=== PATIENT | male | born 1950 | race Caucasian/White ===

== ENCOUNTER 2016-04-07 09:45 | Inpatient (IN) | payer MEDICARE ==
[~2016-04-07] VITALS: Ht 172.7 cm; Wt 132.5 kg
[2016-04-07] VITALS (7 sets, daily range): BP systolic 135–158; BP diastolic 69–95; PULSE 90–109; RESP 16–22; TEMP 97.9–98.8; O2SAT 89–98
[~2016-04-07 09:45] MED LIST: AMLO5TAB96 PO; ASPI325T PO; FURO8SOL PO; GLUC1000 PO; LISI-357 PO; LYRI150C PO; SIMV20 PO
[2016-04-07] MEDS ORDERED: SODIUM CHLORIDE 0.9% FLUSH 5 ML FLUSH IVF PRN (10:00)
[2016-04-07 10:23] LABS: AUTOMATED NEUTROPHIL # 13.6 TH/MM3 (1.8-7.7); BASOPHIL # 0.1 TH/MM3 (0-0.2); BASOPHIL % 0.6 % (0.0-2.0); EOSINOPHIL % 0.2 % (0.0-4.0); HEMATOCRIT 48.8 % (39.0-51.0); HEMO FLAGS DIFF FINAL; LYMPH % 10.5 % (9.0-44.0); LYMPHOCYTE # 1.7 TH/MM3 (1.0-4.8); MEAN CELL VOLUME 85.5 FL (80.0-100.0); MEAN CORPUSCULAR HEMOGLOBIN 27.8 PG (27.0-34.0); MEAN CORPUSCULAR HGB CONC 32.5 % (32.0-36.0); MONO % 5.4 % (0.0-8.0); NEUT % 83.3 % (16.0-70.0); PLATELET COUNT 284 TH/MM3 (150-450); RED CELL DISTRIBUTION WIDTH 15.6 % (11.6-17.2); WHITE BLOOD COUNT 16.3 TH/MM3 (4.0-11.0)
[2016-04-07 10:29] LABS: APTT (PATIENT) 29.4 SEC (24.3-30.1); PROTHROMBIN TIME - PATIENT 11.4 SEC (9.8-11.6)
[2016-04-07 10:36] LABS: ALT (GPT) 27 U/L (12-78); ANION GAP 5 MEQ/L (5-15); AST (GOT) 16 U/L (15-37); BICARBONATE 30.1 MEQ/L (21.0-32.0); BLOOD UREA NITROGEN 13 MG/DL (7-18); CHLORIDE 101 MEQ/L (98-107); GLOMERULAR FILTRATION RATE 59 ML/MIN (>89); POTASSIUM 4.6 MEQ/L (3.5-5.1); SODIUM (NA) 136 MEQ/L (136-145)
--- NOTE | 2016-04-07 10:36 | RADRPT ---
EXAM DATE/TIME: 04/07/2016 10:23 There is marked central and cortical atrophy with dilatation of ventricular and sulcal spaces. Areas of low attenuation seen throughout the white matter. There is no parenchymal hemorrhage, acute infarc tion or mass lesion identified. There are no extra-axial fluid collections appreciated. The posteri or fossa is unremarkable with midline fourth ventricle. The portion of the orbits and paranasal sinu ses visualized are unremarkable. CONCLUSION: Cerebral atrophy and chronic ischemic small vessel vasculopathy. Opacification of the right maxillary sinus partially seen. Abran Ruth MD on April 07, 2016 at 10:33 Board Certified Radiologist. This report was verified electronically.
--- NOTE | 2016-04-07 10:36 | RADRPT ---
EXAM DATE/TIME: 04/07/2016 10:24 [facility] COMPARISON: No previous studies available for comparison. INDICATIONS : Left hip pain, fall. MEDICAL HISTORY : None. SURGICAL HISTORY : None. ENCOUNTER: Initial ACUITY: 1 day PAIN SCORE: 3/10 LOCATION: Bilateral hip FINDINGS: Examination of the left hip was performed with AP Pelvis. Fracture of the left femoral neck with slig ht superior migration of the distal shaft. Mild degenerative changes of both hips.. The acetabulum i s grossly intact. CONCLUSION: Mildly displaced left femoral neck fracture. Abran Ruth MD on April 07, 2016 at 10:34 Board Certified Radiologist. This report was verified electronically.
[2016-04-07] MEDS ORDERED: METF1000 PO (10:37)
[2016-04-07] MEDS ORDERED: htn med PO (10:37)
[2016-04-07] MEDS ORDERED: SIMV20TA PO (10:37)
[2016-04-07 10:38] LABS: ALKALINE PHOSPHATASE 71 U/L (45-117); TOTAL BILIRUBIN ADULT 0.7 MG/DL (0.2-1.0)
--- NOTE | 2016-04-07 10:40 | RADRPT ---
EXAM DATE/TIME: 04/07/2016 10:18 [facility] COMPARISON: No previous studies available for comparison. INDICATIONS : Chest pain. MEDICAL HISTORY : None. SURGICAL HISTORY : None. ENCOUNTER: Initial ACUITY: 1 day PAIN SCORE: 2/10 LOCATION: Bilateral chest FINDINGS: A single view of the chest demonstrates diminished lung volumes with bibasilar atelectasis. No eviden ce of mass, infiltrate or effusion. The cardiomediastinal contours are unremarkable. Osseous struct ures are intact. CONCLUSION: Diminished lung volumes with minimal bibasilar atelectasis. Abran Ruth MD on April 07, 2016 at 10:38 Board Certified Radiologist. This report was verified electronically.
--- NOTE | 2016-04-07 10:42 | PD ---
HPI Chief Complaint: Hip Injury Time Seen by Provider: 09:52 Travel History International Travel<30 days: No Contact w/Intl Traveler<30days: No Traveled to known affect area: No History of Present Illness HPI 66-year-old male who presents the emergency department having been brought in for left hip pain. Patient reportedly had a mechanical fall. His friends were with him at the time. He doesn't remember falling but he does know that he has hip pain. He evidently has a history of dementia. He lives with some friends and uses a walker and a wheelchair but recently they have been having more difficulty taking care of him. He provides very little history and is quite confused. PFSH Past Medical History Congestive Heart Failure: Yes Diabetes: Yes Hypertension: Yes Social History Alcohol Use: No Tobacco Use: No Allergies-Medications (Allergen,Severity, Reaction): Coded Allergies: No Known Allergies (Verified , 04/07/16) Reported Meds & Prescriptions Reported Meds & Active Scripts Active Reported [htn med] Unknown Dose PO DAILY Simvastatin 20 Mg Tab 20 Mg PO DAILY Metformin (Metformin HCl) 1,000 Mg Tab 1,000 Mg PO BIDPC With meals Review of Systems ROS Limitations: Poor Historian Physical Exam Narrative GENERAL:Well appearing, no acute distress SKIN: Warm and dry. HEAD: Atraumatic. Normocephalic. EYES: Pupils equal and round. No injection or drainage. ENT: Moist mucous membranes NECK: Trachea midline. CARDIOVASCULAR: Regular rate and rhythm. No murmur appreciated. 2+ DP pulses bilaterally. RESPIRATORY: Clear to auscultation. Breath sounds equal bilaterally. GASTROINTESTINAL: Abdomen soft, non-tender, nondistended. MUSCULOSKELETAL: Pain with flexion of the left hip. NEUROLOGICAL: Awake and alert. No obvious cranial nerve deficits. Moving all extremities. Sensation grossly intact in the left lower extremity. PSYCHIATRIC: Appropriate mood and affect; insight and judgment normal. Data Data Last Documented VS Vital Signs Date Time Temp Pulse Resp B/P Pulse Ox O2 Delivery O2 Flow Rate FiO2 04/07/16 11:53 100 22 155/90 98 Room Air 04/07/16 10:00 2 04/07/16 09:59 97.9 Orders Electrocardiogram (04/07/16 09:52) Complete Blood Count With Diff (04/07/16 09:52) Comprehensive Metabolic Panel (04/07/16 09:52) Prothrombin Time / Inr (Pt) (04/07/16 09:52) Act Partial Throm Time (Ptt) (04/07/16 09:52) Chest, Single Ap (04/07/16 09:52) Ecg Monitoring (04/07/16 09:52) Bilateral Bp Monitoring (04/07/16 09:52) Iv Access Insert/Monitor (04/07/16 09:52) Oximetry (04/07/16 09:52) Oxygen Administration (04/07/16 09:52) Sodium Chloride 0.9% Flush (Ns Flush) (04/07/16 10:00) Ct Brain W/O Iv Contrast(Rout) (04/07/16 ) Hip, Uni(Ap&Lat) W Ap Pelvis (04/07/16 ) Urinalysis - C+S If Indicated (04/07/16 10:36) Cath For Specimen (04/07/16 10:36) Creatine Kinase (Cpk) (04/07/16 11:05) Admit Order (Ed Use Only) (04/07/16 12:43) Consult Orthopedic (04/07/16 ) Labs Laboratory Tests Test 04/07/16 04/07/16 10:00 11:50 White Blood Count 16.3 TH/MM3 Red Blood Count 5.70 MIL/MM3 Hemoglobin 15.8 GM/DL Hematocrit 48.8 % Mean Corpuscular Volume 85.5 FL Mean Corpuscular Hemoglobin 27.8 PG Mean Corpuscular Hemoglobin 32.5 % Concent Red Cell Distribution Width 15.6 % Platelet Count 284 TH/MM3 Mean Platelet Volume 8.5 FL Neutrophils (%) (Auto) 83.3 % Lymphocytes (%) (Auto) 10.5 % Monocytes (%) (Auto) 5.4 % Eosinophils (%) (Auto) 0.2 % Basophils (%) (Auto) 0.6 % Neutrophils # (Auto) 13.6 TH/MM3 Lymphocytes # (Auto) 1.7 TH/MM3 Monocytes # (Auto) 0.9 TH/MM3 Eosinophils # (Auto) 0.0 TH/MM3 Basophils # (Auto) 0.1 TH/MM3 CBC Comment DIFF FINAL Differential Comment Prothrombin Time 11.4 SEC Prothromb Time International 1.0 RATIO Ratio Activated Partial 29.4 SEC Thromboplast Time Sodium Level 136 MEQ/L Potassium Level 4.6 MEQ/L Chloride Level 101 MEQ/L Carbon Dioxide Level 30.1 MEQ/L Anion Gap 5 MEQ/L Blood Urea Nitrogen 13 MG/DL Creatinine 1.23 MG/DL Estimat Glomerular Filtration 59 ML/MIN Rate Random Glucose 247 MG/DL Calcium Level 9.0 MG/DL Total Bilirubin 0.7 MG/DL Aspartate Amino Transf 16 U/L (AST/SGOT) Alanine Aminotransferase 27 U/L (ALT/SGPT) Alkaline Phosphatase 71 U/L Total Creatine Kinase 240 U/L Total Protein 7.0 GM/DL Albumin 3.4 GM/DL Urine Color LIGHT-YELLOW Urine Turbidity CLEAR Urine pH 6.5 Urine Specific Stewart 1.006 Urine Protein 100 mg/dL Urine Glucose (UA) TRACE mg/dL Urine Ketones NEG mg/dL Urine Occult Blood TRACE Urine Nitrite NEG Urine Bilirubin NEG Urine Urobilinogen LESS THAN 2.0 MG/DL Urine Leukocyte Esterase NEG Urine RBC 1 /hpf Urine WBC LESS THAN 1 /hpf Urine Squamous Epithelial <1 /hpf Cells Microscopic Urinalysis Comment CATH-CULT NOT IND MDM Medical Decision Making Medical Screen Exam Complete: Yes Emergency Medical Condition: Yes Interpretation(s) Afebrile, mild tachycardia, 98% on room air with some hypoxia when he sleeps, mild hypertension Leukocytosis with left shift Electrolytes are reassuring CK is 240 Urinalysis: Negative for infection Last 24 hours Impressions Chest X-Ray 04/07/16 0952 Signed Impressions: Service Date/Time: April 10:18 - CONCLUSION: Diminished lung volumes with minimal bibasilar atelectasis. Abran Ruth MD Hip and Pelvis X-Ray 04/07/16 0000 Signed Impressions: Service Date/Time: April 10:24 - CONCLUSION: Mildly displaced left femoral neck fracture. Abran Ruth MD Head CT 04/07/16 0000 Signed Impressions: Service Date/Time: April 10:23 - CONCLUSION: Cerebral atrophy and chronic ischemic small vessel vasculopathy. Opacification of the right maxillary sinus partially seen. Abran Ruth MD Differential Diagnosis Femoral neck fracture, hip contusion, hip sprain, pubic ramus fracture Narrative Course This is a 66-year-old male who presents the emergency department having had a mechanical fall. He has evidence of a femoral neck fracture on x-ray. He is placed in a monitored an IV was established. Labs were obtained which demonstrated a leukocytosis of 16 with a normal chest x-ray normal urinalysis. I suspect his leukocytosis is stress response. Patient will be admitted for surgical management of his hip. I spoke to Dr. Jolly who would like to keep the patient NPO. Diagnosis Primary Impression: Femoral neck fracture Qualified Code: S72.002A - Closed fracture of neck of left femur, initial encounter Admitting Information Admitting Physician Requests: Admit Chloe Stearns MD Apr 07, 2016 10:42
[2016-04-07 11:59] LABS: BLOOD, URINE TRACE (NEG); GLUCOSE,URINE TRACE mg/dL (NEG); KETONE, URINE NEG (NEG); NITRITE,URINE NEG (NEG); PH, URINE 6.5 (5.0-8.5); SQUAMOUS EPITHELIAL CELL URINE <1 /hpf (0-5); URINE COLOR LIGHT-YELLOW (YELLW/STRAW)
[2016-04-07 12:02] LABS: COMMENT (UR) CATH-CULT NOT IND; CULTURE IF INDICATED CATH CULTURE NOT IND
[2016-04-07] MEDS ORDERED: NALOXONE HCL 0.4 MG/ML AMP IV PRN (14:00)
[2016-04-07] MEDS ORDERED: MAGNESIUM HYDROXIDE SUSP 30 ML CUP PO PRN (14:00)
[2016-04-07] MEDS ORDERED: MORPHINE SULFATE 4 MG/ML INJ IV PUSH PRN (14:00)
[2016-04-07] MEDS ORDERED: ACETAMINOPHEN 325 MG TAB PO PRN (14:00)
[2016-04-07] MEDS ORDERED: ACETAMINOPHEN/HYDROcodone 325 MG/5 MG TAB PO PRN (14:00)
[2016-04-07] MEDS ORDERED: SENNOSIDES 8.6 MG TAB PO PRN (14:00)
[2016-04-07] MEDS ORDERED: ONDANSETRON HCL 4 MG/2 ML VIAL IVP PRN (14:00)
[2016-04-07] MEDS ORDERED: SODIUM CHLORIDE 0.9% FLUSH 5 ML FLUSH FLUSH PRN (14:00)
[2016-04-07] MEDS ORDERED: ACETAMINOPHEN/HYDROcodone 325 MG/7.5 MG TAB PO PRN (14:00)
[2016-04-07] MEDS ORDERED: BISACODYL 10 MG SUPP PR PRN (14:00)
[2016-04-07] MEDS ORDERED: TEMAZEPAM 15 MG CAP PO PRN (14:00)
--- NOTE | 2016-04-07 14:26 | HHI.HP ---
[facility] Physician Unknown Admission Diagnosis femoral neck fracture Diagnoses: Chief Complaint: Fall and left leg pain Travel History International Travel<30 Days: No Contact w/Intl Traveler <30 Da: No Traveled to Known Affected Are: No History of Present Illness 66 years old male who seems to have dementia brought to the hospital after what seems like he sustained a fall, he was found to have left femoral neck displaced fracture on x-ray, patient is not able to recall the incidents, not sure if this is new or from few days ago. Patient is extremely poor historian not able to provide any information, he is oriented to place 2 months however he cannot recall anything from the past cannot give any past medical history social or family history. He is in pain in his lower extremity on the left Review of Systems ROS Limitations: Poor Historian Past Family Social History Past Medical History Unobtainable Past Surgical History Unobtainable Allergies: Coded Allergies: No Known Allergies (Verified , 04/07/16) Family History Unobtainable Social History Unobtainable Physical Exam Vital Signs Vital Signs Date Time Temp Pulse Resp B/P Pulse Ox O2 Delivery O2 Flow Rate FiO2 04/07/16 11:53 100 22 155/90 98 Room Air 04/07/16 10:33 04/07/16 10:00 Nasal Cannula 2 04/07/16 09:59 97.9 104 20 158/87 90 Room Air Physical Exam GENERAL: This is a well-nourished, well-developed patient, in no apparent distress. SKIN: No rashes, warm and dry HEAD: Atraumatic. Normocephalic. EYES: Pupils equal round and reactive. Extraocular motions intact. No scleral icterus. ENT: Nose without bleeding, or drainage, Airway patent. NECK: Trachea midline. Supple CARDIOVASCULAR: Regular rate and rhythm without murmurs, gallops, or rubs. RESPIRATORY: Fair air entry bilaterally. No wheezes, rales, or rhonchi. GASTROINTESTINAL: Abdomen soft, non-tender, nondistended. Positive bowel sounds MUSCULOSKELETAL: Left lower extremity laterally rotated NEUROLOGICAL: Awake and alert. Demented, Moves all extremity. Normal speech.no focal neurological deficit Laboratory Laboratory Tests Test 04/07/16 04/07/16 10:00 11:50 White Blood Count 16.3 Red Blood Count 5.70 Hemoglobin 15.8 Hematocrit 48.8 Mean Corpuscular Volume 85.5 Mean Corpuscular Hemoglobin 27.8 Mean Corpuscular Hemoglobin 32.5 Concent Red Cell Distribution Width 15.6 Platelet Count 284 Mean Platelet Volume 8.5 Neutrophils (%) (Auto) 83.3 Lymphocytes (%) (Auto) 10.5 Monocytes (%) (Auto) 5.4 Eosinophils (%) (Auto) 0.2 Basophils (%) (Auto) 0.6 Neutrophils # (Auto) 13.6 Lymphocytes # (Auto) 1.7 Monocytes # (Auto) 0.9 Eosinophils # (Auto) 0.0 Basophils # (Auto) 0.1 CBC Comment DIFF FINAL Differential Comment Prothrombin Time 11.4 Prothromb Time International 1.0 Ratio Activated Partial 29.4 Thromboplast Time Sodium Level 136 Potassium Level 4.6 Chloride Level 101 Carbon Dioxide Level 30.1 Anion Gap 5 Blood Urea Nitrogen 13 Creatinine 1.23 Estimat Glomerular Filtration 59 Rate Random Glucose 247 Calcium Level 9.0 Total Bilirubin 0.7 Aspartate Amino Transf 16 (AST/SGOT) Alanine Aminotransferase 27 (ALT/SGPT) Alkaline Phosphatase 71 Total Creatine Kinase 240 Total Protein 7.0 Albumin 3.4 Urine Color LIGHT-YELLOW Urine Turbidity CLEAR Urine pH 6.5 Urine Specific [facility] 1.006 Urine Protein 100 Urine Glucose (UA) TRACE Urine Ketones NEG Urine Occult Blood TRACE Urine Nitrite NEG Urine Bilirubin NEG Urine Urobilinogen LESS THAN 2.0 Urine Leukocyte Esterase NEG Urine RBC 1 Urine WBC LESS THAN 1 Urine Squamous Epithelial <1 Cells Microscopic Urinalysis Comment CATH-CULT NOT IND Result Diagram: 04/07/16 1000 04/07/16 1000 Imaging Last Impressions Chest X-Ray 04/07/16 0952 Signed Impressions: Service Date/Time: April 10:18 - CONCLUSION: Diminished lung volumes with minimal bibasilar atelectasis. Abran Ruth MD Hip and Pelvis X-Ray 04/07/16 0000 Signed Impressions: Service Date/Time: April 10:24 - CONCLUSION: Mildly displaced left femoral neck fracture. Abran Ruth MD Head CT 04/07/16 0000 Signed Impressions: Service Date/Time: April 10:23 - CONCLUSION: Cerebral atrophy and chronic ischemic small vessel vasculopathy. Opacification of the right maxillary sinus partially seen. Abran Ruth MD Assessment and Plan Assessment and Plan 66 years old male who seems to have dementia, admitted status post fall, found to have - Left femoral neck displaced fracture status post fall: Patient is demented and unable to give consent, working on contacting her family, orthopedic consulted from ED requested medical admission, UA unremarkable for infection - Dementia: Mostly chronic, UA unremarkable for infection, will check ammonia level - ROBERTA: Creatinine increased comparing to previous baseline level, iv fluid, avoid nephrotoxins, monitor BMP - DVT prophylaxis with SCD, start chemical heparin subcutaneous every 8 hours Discussed Condition With ED physician Physician Certification 2 Midnight Certification Type: Admission for Inpatient Services Order for Inpatient Services The services are ordered in accordance with Medicare regulations or non- Medicare payer requirements, as applicable. In the case of services not specified as inpatient-only, they are appropriately provided as inpatient services in accordance with the 2-midnight benchmark. Estimated LOS (days): 2 days is the estimated time the patient will need to remain in the hospital, assuming treatment plan goals are met and no additional complications. Post-Hospital Plan: Not yet determined Clary El MD Apr 07, 2016 14:26
[2016-04-07] MEDS: SODIUM CHLOR 0.9% 1000 ML INJ 1,000 ML IV SCH (14:58)
[2016-04-07] MEDS: DOCUSATE SODIUM 100 MG CAP PO SCH (15:11)
[2016-04-07] MEDS ORDERED: GENTAMICIN SULFATE 80 MG/2 ML VIAL ONE (17:56)
[2016-04-07] MEDS ORDERED: GLUCAGON 1 MG/ML VIAL OTHER PRN (19:15)
[2016-04-07] MEDS ORDERED: DEXTROSE 50% IN WATER 50 ML VIAL(D50) IV PUSH PRN (19:15)
[2016-04-07] MEDS: SODIUM CHLORIDE 0.9% FLUSH 5 ML FLUSH FLUSH SCH (22:18)
[2016-04-07] MEDS: INSULIN ASPART SUPPLEMENTAL SCALE SQ SCH (22:19)
[2016-04-07] MEDS: MORPHINE SULFATE 4 MG/ML INJ IV PUSH PRN (22:22)
[2016-04-08] VITALS: BP 147/77; PULSE 99; RESP 18; TEMP 97.9; O2SAT 96
[2016-04-08] MEDS: DOCUSATE SODIUM 100 MG CAP PO SCH ×2 (03:05→15:00)
[2016-04-08 04:00] VITALS: BP 149/65; PULSE 88; RESP 20; TEMP 98.7; O2SAT 93
[2016-04-08 05:57] LABS: BASOPHIL # 0.1 TH/MM3 (0-0.2); EOSINOPHIL # 0.1 TH/MM3 (0-0.4); EOSINOPHIL % 0.9 % (0.0-4.0); HEMATOCRIT 46.1 % (39.0-51.0); HEMO FLAGS DIFF FINAL; LYMPHOCYTE # 1.5 TH/MM3 (1.0-4.8); MEAN CELL VOLUME 84.1 FL (80.0-100.0); MEAN CORPUSCULAR HEMOGLOBIN 27.9 PG (27.0-34.0); MEAN CORPUSCULAR HGB CONC 33.2 % (32.0-36.0); MONO % 6.3 % (0.0-8.0); NEUT % 80.8 % (16.0-70.0); PLATELET COUNT 260 TH/MM3 (150-450); RED BLOOD COUNT 5.48 MIL/MM3 (4.50-5.90); RED CELL DISTRIBUTION WIDTH 15.2 % (11.6-17.2); WHITE BLOOD COUNT 13.6 TH/MM3 (4.0-11.0)
[2016-04-08] MEDS: MORPHINE SULFATE 4 MG/ML INJ IV PUSH PRN (06:02)
[2016-04-08 06:25] LABS: BICARBONATE 29.7 MEQ/L (21.0-32.0); POTASSIUM 4.4 MEQ/L (3.5-5.1)
[2016-04-08] MEDS: INSULIN ASPART SUPPLEMENTAL SCALE SQ SCH ×4 (06:32→21:14)
--- NOTE | 2016-04-08 06:45 | EKG ---
Date Performed: 04/07/2016 Time Performed: 10:51:48 PTAGE: 66 years EKG: SINUS TACHYCARDIA INFERIOR MYOCARDIAL INFARCTION ABNORMAL ECG PREVIOUS TRACING : 10/21/2010 14.35 Compared to prior tracing no significant change DOCTOR: Edis Florian Interpretating Date/Time 04/08/2016 06:42:52
--- NOTE | 2016-04-08 06:46 | PD.ORT.PN ---
Subjective Subjective Remarks Fall at home. Lives alone. Complaints of right hip pain. Is having difficulty recalling incident and has some confusion. Unable to assess if this is more acute or is dementia. Objective Vitals Vital Signs Date Time Temp Pulse Resp B/P Pulse Ox O2 Delivery O2 Flow Rate FiO2 04/08/16 00:00 97.9 99 18 147/77 96 04/07/16 21:30 98.8 90 20 144/84 95 04/07/16 20:23 105 18 141/69 98 Nasal Cannula 2 04/07/16 16:19 105 16 145/95 89 Nasal Cannula 2 04/07/16 14:33 109 20 135/93 94 Room Air 04/07/16 11:53 100 22 155/90 98 Room Air 04/07/16 10:33 04/07/16 10:00 Nasal Cannula 2 04/07/16 09:59 97.9 104 20 158/87 90 Room Air Result Diagram: 04/08/16 0448 04/08/16 0448 Other Results Laboratory Tests Test 04/07/16 10:00 Prothrombin Time 11.4 SEC (9.8-11.6) Prothromb Time International 1.0 RATIO Ratio Imaging Last 24 hours Impressions Chest X-Ray 04/07/16 0952 Signed Impressions: Service Date/Time: April 10:18 - CONCLUSION: Diminished lung volumes with minimal bibasilar atelectasis. Abran Ruth MD Objective Remarks Bilateral upper extremities: Full range of motion neurovascularly intact Right lower extremity: Full range of motion neurovascularly intact Left lower extremity: Pain with motion of hip. No pain with palpation to knee or ankle. Distally intact sensation with good capillary refills. Assessment & Plan Assessment and Plan Left femoral neck displaced fracture Surgery this morning for left hip hemiarthroplasty Sign consents Nothing by mouth Cousin will sign consents, he is a power of keno terminal operator. Talked with him over the phone and explained the fracture and treatment. Due to dementia and living by himself we will need to look at group home facility at discharge DHARMESH MONTIEL PA-C Apr 08, 2016 06:46
[2016-04-08] MEDS: LACTATED RINGER'S 1000 ML IV SCH (07:00)
[2016-04-08] MEDS ORDERED: SODIUM CHLORID 0.9% 500 ML IV SCH (07:00)
[2016-04-08 08:00] VITALS: BP 173/92; PULSE 82; RESP 24; TEMP 98.6; O2SAT 94
[2016-04-08] MEDS ORDERED: INFLUENZA VIRUS VACCINE (QUADRIVALENT) 0.5 ML SYR IM ONE (09:00)
[2016-04-08] MEDS ORDERED: PNEUMOCOCCAL POLYVALENT INJ 25 MCG/0.5 ML SYR IM ONE (09:00)
[2016-04-08] MEDS: SODIUM CHLORIDE 0.9% FLUSH 5 ML FLUSH FLUSH SCH (09:00)
[2016-04-08] MEDS ORDERED: SODIUM CHLORIDE 0.9% IV SCH (10:00)
[2016-04-08] MEDS ORDERED: TRANEXAMIC ACID IV SCH (10:00)
[2016-04-08] MEDS: SODIUM CHLOR 0.9% 1000 ML INJ 1,000 ML IV SCH ×3 (10:00→20:00)
[2016-04-08 10:41] VITALS: BP 130/69; PULSE 82; RESP 18; TEMP 97; O2SAT 95
[2016-04-08] MEDS ORDERED: GENTAMICIN SULFATE 80 MG/2 ML VIAL ONE (11:39)
[2016-04-08] MEDS ORDERED: FAMOTIDINE 20 MG/2 ML VIAL ONE (11:49)
[2016-04-08] MEDS ORDERED: ONDANSETRON HCL 4 MG/2 ML VIAL IV PUSH ONE (12:00)
[2016-04-08] MEDS ORDERED: NEOSTIGMINE 3 MG/3 ML SYR IV ONE (12:00)
[2016-04-08] MEDS ORDERED: PROPOFOL 200 MG/20 ML AMP IV ONE (12:00)
[2016-04-08] MEDS ORDERED: LACTATED RINGER'S 1000 ML INJ 1,000 ML IV ONE (12:00)
[2016-04-08] MEDS ORDERED: ceFAZolin INJ 1,000 MG VIAL ONE (13:14)
[2016-04-08] MEDS ORDERED: VANCOMYCIN HCL 1000 MG VIAL ONE (13:14)
[2016-04-08] MEDS ORDERED: ceFAZolin 2 GM PREMIX 50 ML ONE (13:14)
[2016-04-08] MEDS ORDERED: SODIUM CHLOR 0.9% 250 ML INJ 250 ML ONE (13:14)
[2016-04-08] MEDS ORDERED: FLUCONAZOLE/NACL 400 MG/200 ML IV ONE (13:45)
[2016-04-08] MEDS ORDERED: WALKER WHEELS/F1 MIS (14:20)
[2016-04-08] MEDS ORDERED: XARE10TA PO (14:20)
[2016-04-08] MEDS ORDERED: HYDR-3366 PO (14:20)
--- NOTE | 2016-04-08 14:27 | PD.OP ---
cc: Willem Andre MD Operative Report Date of Surgery: Apr 08, 2016 Preoperative Diagnosis: Displaced left femoral neck fracture Postoperative Diagnosis: Procedure: Left hip ashley-arthroplasty Anesthesia: Gen. Surgeon: Willem Andre E Business Specialist(s): Brad Vernon PA-C The surgical procedure was assisted by my physician assistant family teacher. My P.A. presence was necessary throughout this case for the manipulation and positioning of the surgical extremity. My P.A. was assisting me throughout the duration of this procedure. The skill set of a physician assistant family teacher was medically necessary to complete this procedure. During the surgical case the surgical services coordinator was working at the back table and the physician assistant family teacher was directly assisting me. Operation and Findings: PLAN OF ACTIVITY Weight bear as tolerated. IMPLANTS USED DePuy Corail size 12 stem with size [53] bipolar head and [+1.5] neck. DRAIN: 7 mm Lexa-Arias drain DETAILS OF PROCEDURE This patient was brought into the operating room and placed on the OR table. The patient was given anesthesia. The patient received IV antibiotics. The patient was then placed in lateral decubitus position. The hip and leg were prepped with alcohol, followed by Hibiclens and draped in a usual sterile fashion. Clean air was used for this procedure. Time out procedure was performed. The procedure began with a 5 inch incision over the posterolateral hip. The subcutaneous tissue was dissected with the Bovie. The iliotibial band were split in line with fibers. The Charnley retractor was placed. The piriformis and external rotators were released from the femur and tagged with a #1 Vicryl suture. The capsule is now incised and tagged with #1 Vicryl. The femoral neck fracture was now visualized. A corkscrew was now used to remove the femoral head. The femoral head was sized and measured. Soft tissue was now protected. The hip skid was placed underneath the femoral neck. An oscillating saw was used to make a femoral neck cut. At this point attention was turned to preparation of the proximal femur. A box osteotome was used to remove the lateral cortex of the femoral neck. The T- handle reamer was used to open the femoral canal. Next, the canal was broached. A lateralizing reamer was used to help lateralize the prosthesis. At this point a trial head and neck were placed. The hip was reduced. The patient was found to have excellent stability with good range of motion. Trial components were removed. Soft tissue and bone were thoroughly irrigated. A Corail stem was now opened. The stem was now impacted into the proximal femur. Care was taken to keep appropriate anteversion. The head and neck were now impacted onto the stem. The hip was again reduced. The hip was found to have good range of motion and good stability. Leg lengths were clinically equal. The wound was thoroughly irrigated. The capsule, piriformis and iliotibial band were closed with #1 Vicryl. Subcutaneous tissue was closed with 3-0 Vicryl. The skin was closed with makenna. A sterile dressing was applied with Primapore. The patient was placed into a knee immobilizer. The patient was awakened and transferred to the recovery room in stable condition. Needle and sponge counts were correct. Willem Andre MD Apr 08, 2016 14:27
[2016-04-08] MEDS ORDERED: MORPHINE SULFATE 4 MG/ML INJ IV PUSH PRN (14:30)
[2016-04-08] MEDS ORDERED: SODIUM CHLORIDE 0.9% FLUSH 5 ML FLUSH IVF PRN (14:30)
[2016-04-08] MEDS ORDERED: ERGOCALCIFEROL (VIT D2) 50,000 UNIT CAP PO ONE (14:30)
[2016-04-08] MEDS ORDERED: Post-op Orders (for Pharmacy) MISC XX ONE (14:30)
[2016-04-08] MEDS ORDERED: DO NOT ADM ANY ANTICOAGULANT DRUGS XX PRN (15:00)
--- NOTE | 2016-04-08 15:05 | MB ---
cc: JAVED DELGADO KHALIL MD DATE OF CONSULTATION: 04/08/2016 REASON FOR CONSULTATION Displaced left femoral neck fracture. CONSULTING PHYSICIAN Dr. El HISTORY OF PRESENT ILLNESS is a 66-year-old male who presented to the emergency room after having a fall. He is a relatively poor historian. He states that he lives at home alone. He is normally able to take care of himself. After this fall he was unable to stand or ambulate. He complains of severe left hip pain. Pain is worse with movement and is improved with rest. X-rays in the emergency department revealed a displaced left femoral neck fracture. PAST MEDICAL HISTORY ALLERGIES No known drug allergies. MEDICATIONS Please see EMR for complete list of medications; this was reviewed. Outpatient medications include simvastatin and metformin. ILLNESSES 1. Diabetes. 2. Hypertension. 3. CHF. SURGERIES None. FAMILY HISTORY Noncontributory. REVIEW OF SYSTEMS The patient denies headache, visual changes, neck pain, chest pain, shortness of breath, abdominal pain, nausea, vomiting or recent weight loss. He complains of left hip pain. Pain is worse with movement. SOCIAL HISTORY The patient denies alcohol, tobacco or drug use. PHYSICAL EXAMINATION GENERAL: The patient is a 66-year-old male who is awake. He answers most questions appropriately. He is moderately obese. VITAL SIGNS: Temperature 97.0, pulse 82, respirations 18, blood pressure 130/69. O2 sat is 95% on room air. HEAD: The patient is normocephalic. Pupils are equal. NECK: Soft, nontender. Trachea is midline. ABDOMEN: Soft, nontender, nondistended. EXTREMITIES: Examination of bilateral upper extremities reveals no significant pain with shoulder, elbow or wrist motion. He has intact sensation in radial, ulnar and median nerve distributions bilaterally. Radial pulses are palpable bilaterally. Skin is intact. Examination of right leg reveals no pain with hip, knee or ankle motion. Skin is intact. He has good capillary refill in his toes. Warm and well-perfused. Examination of left leg reveals pain with any hip motion. He has no tenderness around his knee, tibia or ankle. Skin is intact. Dorsalis pedis pulse is palpable. Sensation is grossly intact. : The patient does have a large yeast infection around his groin and abdomen. X-RAYS X-rays of the left hip were reviewed. X-rays reveal a displaced left femoral neck fracture. IMPRESSION 1. Obesity. 2. Diabetes. 3. Hypertension. 4. Displaced left femoral neck fracture. PLAN The treatment options were discussed with the patient. At this point I would recommend left hip hemiarthroplasty. The risks of surgery include bleeding, infection, injuries to arteries, nerves and blood vessels, femur fracture, hip dislocation, leg length discrepancies as well as medical complications including blood clot, stroke, heart attack and . All questions were answered. The patient is given consent for surgery. I will plan on surgery today. A mid-level provider in my office, nurse practitioner or PA, may see this patient on a follow-up basis and continue to implement the objective of this plan including: Starting or adjusting medications, injections of muscle, tendon, bursa or joints, cast application, orthotic or brace application, physical therapy, further radiographic studies including x-ray, MRI, CT, ultrasounds or bone scan, vascular studies, neurologic studies, or other specialist consultations, and proceeding with surgical management as appropriate. MD LYDIA Dela Cruz/WILLY /2:32 PM /2:44 PM
[2016-04-08] MEDS ORDERED: fentaNYL CITRATE 250 MCG/5 ML AMP ONE (15:17)
[2016-04-08] MEDS ORDERED: *ENALAPRILAT 1.25 MG/ML VIAL PERIprocedural Use ONLY ONE (15:32)
[2016-04-08] MEDS ORDERED: LABETALOL HCL 100 MG/20 ML VIAL ONE (15:33)
[2016-04-08 16:00] VITALS: BP 109/83; PULSE 70; RESP 12; TEMP 96.7; O2SAT 93
[2016-04-08] MEDS ORDERED: cloNIDine HCL 0.1 MG TAB PO PRN (16:15)
--- NOTE | 2016-04-08 16:16 | RADRPT ---
EXAM DATE/TIME: 04/08/2016 15:23 [facility] COMPARISON: HIP LEFT (AP&LAT 2/3VWS) W AP PELVIS, April 07, 2016, 10:24. INDICATIONS : Eval hip post total hip replacement. MEDICAL HISTORY : None. SURGICAL HISTORY : Left total hip replacement. ENCOUNTER: Initial ACUITY: 1 day PAIN SCORE: 0/10 LOCATION: Left Hip. FINDINGS: 4 views of the left hip and pelvis. Left hip prosthesis in place. Alignment within normal limits. No evidence of fracture. CONCLUSION: Postoperative appearance left hip prosthesis. Rosendo Gong MD on April 08, 2016 at 16:10 Board Certified Radiologist. This report was verified electronically.
--- NOTE | 2016-04-08 16:37 | HHI.PR ---
Subjective Remarks Patient just came from OR, is awake alert but rarely follow command, or answer questions He doesn't seem in pain, looks comfortable but communication is significantly compromised Objective Vitals Vital Signs Date Time Temp Pulse Resp B/P Pulse Ox O2 Delivery O2 Flow Rate FiO2 04/08/16 16:15 69 16 145/78 94 Nasal Cannula 3 04/08/16 16:00 97.6 68 16 148/84 93 Nasal Cannula 3 04/08/16 15:45 72 15 159/88 92 Nasal Cannula 3 04/08/16 15:30 87 15 178/103 98 Simple Mask 8 04/08/16 15:15 85 14 172/98 96 Simple Mask 8 04/08/16 15:05 98.7 92 14 171/101 94 Simple Mask 8 04/08/16 10:41 97.0 82 18 130/69 95 04/08/16 08:00 98.6 82 24 173/92 94 04/08/16 04:00 98.7 88 20 149/65 93 04/08/16 00:00 97.9 99 18 147/77 96 04/07/16 21:30 98.8 90 20 144/84 95 04/07/16 20:23 105 18 141/69 98 Nasal Cannula 2 I/O 04/07/16 04/07/16 04/07/16 04/08/16 04/08/16 04/08/16 07:00 15:00 23:00 07:00 15:00 23:00 Intake Total 0 ml 1050 ml Output Total 340 ml Balance 0 ml 710 ml Intake Oral 0 ml IV Total 50 ml Other 1000 ml Output Drainage Total 40 ml Estimated Blood Loss 300 ml # Voids 1 # Bowel Movements 0 Result Diagram: 04/08/16 0448 04/08/16 0448 Objective Remarks --GENERAL: This is a well-nourished, well-developed patient, in no apparent distress. SKIN: No rashes, warm and dry HEAD: Atraumatic. Normocephalic. EYES: Pupils equal round and reactive. Extraocular motions intact. No scleral icterus. ENT: Nose without bleeding, or drainage, Airway patent. NECK: Trachea midline. Supple CARDIOVASCULAR: Regular rate and rhythm without murmurs, gallops, or rubs. RESPIRATORY: Fair air entry bilaterally. No wheezes, rales, or rhonchi. GASTROINTESTINAL: Abdomen soft, non-tender, nondistended. Positive bowel sounds MUSCULOSKELETAL: Left lower extremity laterally rotated NEUROLOGICAL: Awake and alert. Demented, Moves all extremity. Normal speech.doesn't follow commands or answer question, no focal neurological deficit A/P Assessment and Plan 66 years old male who seems to have dementia, admitted status post fall, found to have - Left femoral neck displaced fracture status post fall: orthopedic consulted , s/p left hemiarthroplasty 04/08/16, post op management per protocol, DVT prophylaxis per ortho, pain management with morphine and [place] - Dementia: Unknown reason, Mostly chronic, UA unremarkable for infection, ammonia level pending, patient doesn't even follow commands sometimes, check vit B12, B6, RPR, will consult neurology - ROBERTA: Creatinine increased comparing to previous baseline level, iv fluid, avoid nephrotoxins, monitor BMP - Hypertension: Vasotec and clonidine as needed monitor blood pressure - DVT prophylaxis with SCD, Clary Parada MD Apr 08, 2016 16:37
[2016-04-08 20:00] VITALS: BP 144/66; PULSE 76; RESP 16; TEMP 97.3; O2SAT 93
[2016-04-08] MEDS: ceFAZolin 2 GM PREMIX 50 ML IV SCH (20:03)
[2016-04-08] MEDS: SODIUM CHLORIDE 0.9% FLUSH 5 ML FLUSH IVF SCH (21:09)
[2016-04-09] VITALS: BP 140/72; PULSE 80; RESP 22; TEMP 97.8; O2SAT 94
[2016-04-09] MEDS: ceFAZolin 2 GM PREMIX 50 ML IV SCH ×2 (00:15→05:54)
[2016-04-09] MEDS: VANCOMYCIN INJ 1,000 MG in SODIUM CHLOR 0.9% 250 ML INJ 250 ML IV SCH ×2 (01:27→13:23)
[2016-04-09] MEDS: DOCUSATE SODIUM 100 MG CAP PO SCH ×3 (03:00→22:46)
[2016-04-09 04:00] VITALS: BP 135/74; PULSE 79; RESP 22; TEMP 99.4; O2SAT 94
[2016-04-09] MEDS: INSULIN ASPART SUPPLEMENTAL SCALE SQ SCH ×4 (06:01→21:13)
[2016-04-09 06:10] LABS: HEMATOCRIT 41.8 % (39.0-51.0); REVIEW FLAG FINAL
[2016-04-09] MEDS: LACTATED RINGER'S 1000 ML IV SCH ×2 (07:00→22:46)
--- NOTE | 2016-04-09 07:48 | PD.ORT.PN ---
Subjective Subjective Remarks pt has no questions, no complaints, resting in bed with CPAP machine on Objective Vitals Vital Signs Date Time Temp Pulse Resp B/P Pulse Ox O2 Delivery O2 Flow Rate FiO2 04/09/16 04:00 99.4 79 22 135/74 94 04/09/16 00:00 97.8 80 22 140/72 94 04/08/16 20:00 97.3 76 16 144/66 93 04/08/16 16:15 69 16 145/78 94 Nasal Cannula 3 04/08/16 16:00 97.6 68 16 148/84 93 Nasal Cannula 3 04/08/16 16:00 96.7 70 12 109/83 93 04/08/16 15:45 72 15 159/88 92 Nasal Cannula 3 04/08/16 15:30 87 15 178/103 98 Simple Mask 8 04/08/16 15:15 85 14 172/98 96 Simple Mask 8 04/08/16 15:05 98.7 92 14 171/101 94 Simple Mask 8 04/08/16 10:41 97.0 82 18 130/69 95 04/08/16 08:00 98.6 82 24 173/92 94 I/O 04/08/16 04/08/16 04/08/16 04/09/16 04/09/16 04/09/16 07:00 15:00 23:00 07:00 15:00 23:00 Intake Total 0 ml 0 ml 1290 ml 220 ml Output Total 700 ml 370 ml 160 ml Balance 0 ml -700 ml 920 ml 60 ml Intake Oral 0 ml 0 ml 240 ml 220 ml IV Total 50 ml Other 1000 ml Output Urine Total 700 ml 150 ml Drainage Total 70 ml 10 ml Estimated Blood Loss 300 ml # Voids 1 1 2 # Bowel Movements 0 0 Result Diagram: 04/09/16 0552 04/08/16 0448 Imaging Last 24 hours Impressions Chest X-Ray 04/07/16 0952 Signed Impressions: Service Date/Time: April 10:18 - CONCLUSION: Diminished lung volumes with minimal bibasilar atelectasis. Abran Ruth MD Objective Remarks seen by Dr. Hawk Baez CPAP face mask in place L hip dressings dry and intact +NVI Assessment & Plan Assessment and Plan POD # 1 s/p left bipolar hip LLE partial weight bearing patient has hx of dementia anticipate discharge to SNF on Monday Lacey Arias Apr 09, 2016 07:48
[2016-04-09 08:00] VITALS: BP 154/77; PULSE 75; RESP 16; TEMP 96.7; O2SAT 98
[2016-04-09] MEDS ORDERED: PNEUMOCOCCAL POLYVALENT INJ 25 MCG/0.5 ML SYR IM ONE (09:00)
[2016-04-09] MEDS: SODIUM CHLORIDE 0.9% FLUSH 5 ML FLUSH IVF SCH ×2 (09:00→21:13)
[2016-04-09] MEDS ORDERED: INFLUENZA VIRUS VACCINE (QUADRIVALENT) 0.5 ML SYR IM ONE (09:00)
[2016-04-09] MEDS: ACETAMINOPHEN/HYDROcodone 325 MG/7.5 MG TAB PO PRN (09:23)
[2016-04-09] MEDS: CHOLECALCIFEROL (VIT D3) 5000 UNIT CAP PO SCH (09:24)
[2016-04-09] MEDS: SODIUM CHLOR 0.9% 1000 ML INJ 1,000 ML IV SCH ×3 (09:28→22:46)
--- NOTE | 2016-04-09 11:42 | HHI.PR ---
Subjective Remarks Patient is more awake and alert and oriented today, he is oriented to place, to the months but not the year, not aware of the president, he seems to be struggling with memories Less agitated comparing to last night, he had to be on restrain, he is better following commands today He denied pain in his leg or fever or chills Objective Vitals Vital Signs Date Time Temp Pulse Resp B/P Pulse Ox O2 Delivery O2 Flow Rate FiO2 04/09/16 08:00 96.7 75 16 154/77 98 04/09/16 07:21 Nasal Cannula 3.00 04/09/16 04:00 99.4 79 22 135/74 94 04/09/16 00:00 97.8 80 22 140/72 94 04/08/16 20:00 97.3 76 16 144/66 93 04/08/16 16:15 69 16 145/78 94 Nasal Cannula 3 04/08/16 16:00 97.6 68 16 148/84 93 Nasal Cannula 3 04/08/16 16:00 96.7 70 12 109/83 93 04/08/16 15:45 72 15 159/88 92 Nasal Cannula 3 04/08/16 15:30 87 15 178/103 98 Simple Mask 8 04/08/16 15:15 85 14 172/98 96 Simple Mask 8 04/08/16 15:05 98.7 92 14 171/101 94 Simple Mask 8 I/O 04/08/16 04/08/16 04/08/16 04/09/16 04/09/16 04/09/16 07:00 15:00 23:00 07:00 15:00 23:00 Intake Total 0 ml 0 ml 1290 ml 220 ml Output Total 700 ml 370 ml 160 ml Balance 0 ml -700 ml 920 ml 60 ml Intake Oral 0 ml 0 ml 240 ml 220 ml IV Total 50 ml Other 1000 ml Output Urine Total 700 ml 150 ml Drainage Total 70 ml 10 ml Estimated Blood Loss 300 ml # Voids 1 1 2 # Bowel Movements 0 0 Result Diagram: 04/09/16 0552 04/08/16 0448 Objective Remarks --GENERAL: This is a well-nourished, well-developed patient, in no apparent distress. SKIN: No rashes, warm and dry HEAD: Atraumatic. Normocephalic. EYES: Pupils equal round and reactive. Extraocular motions intact. No scleral icterus. ENT: Nose without bleeding, or drainage, Airway patent. NECK: Trachea midline. Supple CARDIOVASCULAR: Regular rate and rhythm without murmurs, gallops, or rubs. RESPIRATORY: Fair air entry bilaterally. No wheezes, rales, or rhonchi. GASTROINTESTINAL: Abdomen soft, non-tender, nondistended. Positive bowel sounds MUSCULOSKELETAL: Left lower extremity in stabilizer NEUROLOGICAL: Awake and alert. Demented, Moves all extremity. Normal speech.he is better following command A/P Assessment and Plan 66 years old male who seems to have dementia, admitted status post fall, found to have - Left femoral neck displaced fracture status post fall: orthopedic consulted , s/p left hemiarthroplasty 04/08/16, post op management per protocol, DVT prophylaxis per ortho, pain management with morphine and [place] - Dementia with agitation: Unknown reason, Mostly chronic, UA unremarkable for infection, ammonia level pending, better following commands, reviewed vit B12, B6, RPR, as above, neurology consult pending - ROBERTA: Creatinine increased comparing to previous baseline level, iv fluid, avoid nephrotoxins, monitor BMP - Hypertension: Vasotec and clonidine as needed monitor blood pressure - DVT prophylaxis with SCD, Clary Parada MD Apr 09, 2016 11:42
[2016-04-09 12:00] VITALS: BP 141/74; PULSE 82; RESP 17; TEMP 98.9; O2SAT 95
[2016-04-09] MEDS: FLUCONAZOLE 400 MG PREMIX BAG 200 ML IV SCH (14:18)
[2016-04-09] MEDS: ENOXAPARIN SODIUM 40 MG/0.4 ML SYRINGE SQ SCH (14:19)
[2016-04-09 16:00] VITALS: BP 136/77; PULSE 97; RESP 18; TEMP 98.7; O2SAT 97
[2016-04-09 20:04] VITALS: BP 134/81; PULSE 100; RESP 16; TEMP 99.1; O2SAT 92
--- NOTE | 2016-04-09 21:40 | RADRPT ---
EXAM DATE/TIME: 04/09/2016 17:11 [place] COMPARISON: No previous studies available for comparison. INDICATIONS : Hypertension. Encephalopathy. MEDICAL HISTORY : Hypertension. Diabetes mellitus type 2. Congestive heart failure. SURGICAL HISTORY : ENCOUNTER: Initial ACUITY: 1 day PAIN SCORE: 0/10 LOCATION: cranial TECHNIQUE: Multiplanar, multisequence MRI of the brain was performed without contrast. FINDINGS: There are mild to moderate changes of chronic ischemic demyelinization in the periventricular white m atter. No mass effect or midline shift. No hydrocephalus. No recent infarct identified. No abnormal e xtra-axial fluid collections are seen. CONCLUSION: 1. Mild to moderate chronic white matter ischemic changes. No acute findings. No recent infarct. Elroy Contreras MD on April 09, 2016 at 21:35 Board Certified Radiologist. This report was verified electronically.
[2016-04-10] VITALS (9 sets, daily range): BP systolic 145–187; BP diastolic 58–94; PULSE 71–98; RESP 16–19; TEMP 97.9–99.8; O2SAT 93–99
--- NOTE | 2016-04-10 06:03 | MB ---
cc: RENETTA JEROME MD DATE OF CONSULTATION: 04/09/2016 REASON FOR CONSULTATION: Dementia with short and long-term memory compromise of unknown origin. HISTORY OF PRESENT ILLNESS: Mr. Chavez is a 66 year-old male with unknown past medical history who was brought to the hospital because of a fall when he sustained a left femoral neck displaced fracture. The patient was unable to recall the incident. Neurology was called for assessment of his cognitive function. The patient states that he has a history of seizures, however, he does not know what kind of seizures and what kind of medication. Review of the lab work revealed elevated white blood cells at 16.3, urine negative for infection. Head CT scan with cerebral atrophy and chronic ischemic wall small vessel vasculopathy, opacification of the right maxillary sinus seen during the encounter. The patient sits in bed calmly with little expression on his face, but not in apparent distress. Poor historian. REVIEW OF SYSTEMS Limited due to the condition of the patient, unable to obtain. PAST MEDICAL HISTORY Unable to obtain due to the condition of the patient. PAST SURGICAL HISTORY Unable to obtain due to the condition of the patient. ALLERGIES NO KNOWN DRUG ALLERGIES, as per the medical records. FAMILY HISTORY Unable to obtain. SOCIAL HISTORY Unable to obtain. PHYSICAL EXAMINATION General: The patient is well-nourished, poor historian not in apparent distress, looks pale. HEENT: Atraumatic, normocephalic. Intact vision, intact hearing. Neck: Supple. No carotid bruit. No signs of meningeal irrigation. Cardiovascular: No murmur, regular rate and rhythm. Respiratory: Clear to auscultation. No wheezes. Musculoskeletal: Left lower extremity in a splint Neurological: Awake, alert and oriented to person and place. He knows his date of . He knows ([place]). He says "I don't know to the year, date, month, state. During the encounter, I asked the patient about a tattoo with [facility] and what this means, and he states this is [facility], and he knows the [place], and when I asked about the color of my tie, he said orange and blue, what does this remind him of, and he said "Gators" and he said "I don't like the Gators." Intact naming. Intact repetition. Pupils are equal, reacting to light. No nystagmus. No facial asymmetry is noted. Muscle strength is 5/5 bilateral symmetrical in both upper extremities and right lower extremity. The left lower extremity cannot be assessed due to the fracture. Reflexes are 2+ bilateral upper extremity and right lower extremity, plantars are bilateral downgoing. Sensation is intact bilateral and symmetrical. Cerebellar function intact bilateral upper extremity, [id number]. Gait and stance is deferred at this time. Psychological: Flat, minimal face expressions, no hallucinations. No suicidal ideation. DIAGNOSTIC IMAGING - Head CT scan without contrast was reported with cerebral atrophy and chronic ischemic small vessel vasculopathy, opacification of the right maxillary sinus partially seen. - Brain MRI without contrast, mild to moderate chronic white matter ischemic changes, no acute findings and no recent infarction. DIAGNOSTIC IMPRESSION 1. Impaired cognitive function. 2. Possible dementia, unknown baseline cognitive functions. 3. Questionable history of seizures as per the patient. 4. Possible cause of his confusion can be embolism, hence MRI of the brain was ordered, however, the MRI was reported as unremarkable but for extensive white matter lesions. PLAN 1. Neuro checks q4 hourly. 2. EEG. 3. Minimize the use of opiate medication unless necessary. 4. Consider psychological evaluation. 5. PT/OT therapy. 6. DVT prophylaxis, SCDs. 7. Fall and seizure precautions. 8. B12 supplementation. Thank you for the opportunity to participate in the care of your patient. MD YRIS Santiago/MORENO /9:56 PM /4:52 AM SUHAIL
[2016-04-10] MEDS: INSULIN ASPART SUPPLEMENTAL SCALE SQ SCH ×4 (06:08→21:00)
--- NOTE | 2016-04-10 08:01 | PD.ORT.PN ---
Subjective Subjective Remarks pt has no questions, no complaints, no pain, no SOB, no chest pain, resting in bed with CPAP machine on Objective Vitals Vital Signs Date Time Temp Pulse Resp B/P Pulse Ox O2 Delivery O2 Flow Rate FiO2 04/10/16 04:10 97.9 71 16 145/81 97 04/10/16 03:51 96 Simple Mask 6.00 04/10/16 00:05 98.9 98 16 155/58 93 04/09/16 21:18 Simple Mask 3.00 04/09/16 20:04 99.1 100 16 134/81 92 04/09/16 18:00 Simple Mask 3.00 04/09/16 16:00 98.7 97 18 136/77 97 04/09/16 12:00 98.9 82 17 141/74 95 I/O 04/09/16 04/09/16 04/09/16 04/10/16 04/10/16 04/10/16 07:00 15:00 23:00 07:00 15:00 23:00 Intake Total 220 ml 2368 ml 600 ml 360 ml Output Total 160 ml 20 ml 20 ml Balance 60 ml 2348 ml 600 ml 340 ml Intake Oral 220 ml 720 ml 600 ml 360 ml IV Total 1648 ml Output Urine Total 150 ml Drainage Total 10 ml 20 ml 20 ml # Voids 3 2 3 # Bowel Movements 0 0 Result Diagram: 04/09/16 0552 04/08/16 0448 Imaging Last 24 hours Impressions Chest X-Ray 04/07/16 0952 Signed Impressions: Service Date/Time: April 10:18 - CONCLUSION: Diminished lung volumes with minimal bibasilar atelectasis. Abran Ruth MD Objective Remarks seen by Dr. Hawk Baez CPAP face mask in place L hip dressings dry and intact +NVI no calf tenderness Assessment & Plan Assessment and Plan POD # 2 s/p left bipolar hip LLE partial weight bearing patient has hx of dementia anticipate discharge to SNF on Monday Lacey Arias Apr 10, 2016 08:01
[2016-04-10 09:47] LABS: HEMOGLOBIN A1a 1.1 %; HEMOGLOBIN A1b 2.2 %; HEMOGLOBIN Ao 82.7 %; HEMOGLOBIN LA1C 2.1 %; HEMOGLOBIN P3 4.1 %
[2016-04-10] MEDS: SODIUM CHLORIDE 0.9% FLUSH 5 ML FLUSH IVF SCH ×2 (10:44→21:26)
[2016-04-10] MEDS: DOCUSATE SODIUM 100 MG CAP PO SCH ×2 (10:44→21:00)
[2016-04-10] MEDS: CHOLECALCIFEROL (VIT D3) 5000 UNIT CAP PO SCH (10:44)
--- NOTE | 2016-04-10 13:15 | HHI.PR ---
Subjective Remarks Patient resting in bed, awake alert, answer simple questions usually with general answers, he cannot give any specific details Seen by neurology, continuing neuro check, MRI negative, continue following with neurology Objective Vitals Vital Signs Date Time Temp Pulse Resp B/P Pulse Ox O2 Delivery O2 Flow Rate FiO2 04/10/16 12:00 97 Nasal Cannula 2.00 04/10/16 08:00 98.2 71 18 152/69 99 04/10/16 07:05 Simple Mask 3.00 04/10/16 04:10 97.9 71 16 145/81 97 04/10/16 03:51 96 Simple Mask 6.00 04/10/16 00:05 98.9 98 16 155/58 93 04/09/16 21:18 Simple Mask 3.00 04/09/16 20:04 99.1 100 16 134/81 92 04/09/16 18:00 Simple Mask 3.00 04/09/16 16:00 98.7 97 18 136/77 97 I/O 04/09/16 04/09/16 04/09/16 04/10/16 04/10/16 04/10/16 07:00 15:00 23:00 07:00 15:00 23:00 Intake Total 220 ml 2368 ml 600 ml 360 ml Output Total 160 ml 20 ml 20 ml Balance 60 ml 2348 ml 600 ml 340 ml Intake Oral 220 ml 720 ml 600 ml 360 ml IV Total 1648 ml Output Urine Total 150 ml Drainage Total 10 ml 20 ml 20 ml # Voids 3 2 3 # Bowel Movements 0 0 Result Diagram: 04/09/16 0552 04/08/16 0448 Objective Remarks --GENERAL: This is a well-nourished, well-developed patient, in no apparent distress. SKIN: No rashes, warm and dry HEAD: Atraumatic. Normocephalic. EYES: Pupils equal round and reactive. Extraocular motions intact. No scleral icterus. ENT: Nose without bleeding, or drainage, Airway patent. NECK: Trachea midline. Supple CARDIOVASCULAR: Regular rate and rhythm without murmurs, gallops, or rubs. RESPIRATORY: Fair air entry bilaterally. No wheezes, rales, or rhonchi. GASTROINTESTINAL: Abdomen soft, non-tender, nondistended. Positive bowel sounds MUSCULOSKELETAL: Left lower extremity in stabilizer NEUROLOGICAL: Awake and alert. Demented, Moves all extremity. Normal speech.he is better following command A/P Assessment and Plan 66 years old male who seems to have dementia, admitted status post fall, found to have - Left femoral neck displaced fracture status post fall: orthopedic consulted , s/p left hemiarthroplasty 04/08/16, post op management per protocol, DVT prophylaxis per ortho, pain management with morphine and [place] - Dementia with agitation of unknown origin Impaired cognitive capacity Questionable history of seizure: UA unremarkable for infection, ammonia level pending, better following commands , neurology consulted appreciated their help, B12, B6, RPR, as above, MRI negative except for white matter changes, further recommendation per neurology - ROBERTA: Improving, creatinine trending down,, iv fluid, avoid nephrotoxins, monitor BMP - Diabetes mellitus 2: By definition multiple random reading above 200, hemoglobin A1c 7.1>> continue Accu-Chek with insulin sliding scale - Hypertension: Vasotec and clonidine as needed monitor blood pressure - DVT prophylaxis with SCD, Lovenox Clary El MD Apr 10, 2016 13:15
[2016-04-10] MEDS: ENOXAPARIN SODIUM 40 MG/0.4 ML SYRINGE SQ SCH (14:56)
[2016-04-10] MEDS: FLUCONAZOLE 400 MG PREMIX BAG 200 ML IV SCH (14:56)
[2016-04-10] MEDS: SODIUM CHLOR 0.9% 1000 ML INJ 1,000 ML IV SCH ×2 (14:56→21:35)
[2016-04-10] MEDS: ACETAMINOPHEN/HYDROcodone 325 MG/7.5 MG TAB PO PRN ×2 (17:51)
[2016-04-10] MEDS: ENALAPRILAT 1.25 MG/ML VIAL IV PUSH PRN (21:26)
[2016-04-11] VITALS (8 sets, daily range): BP systolic 128–186; BP diastolic 58–88; PULSE 72–103; RESP 18; TEMP 98.1–99.6; O2SAT 94–96
--- NOTE | 2016-04-11 05:28 | MG ---
cc: VERONICA CRUZ Lab No: [id number] Date: 04/10/2016 Age: Sex: M Race: NOTE Hyperventilation was not performed. INDICATIONS A 66-year-old man with left femoral neck fracture, CHF, seizures. MEDICATIONS [place]. FINDINGS Diffuse 7-Hz slowing is seen. Photic stimulation was performed without significant posterior driving. Hyperventilation was not performed. No hemisphere asymmetries are noted. No epileptiform or seizure activity is seen. IMPRESSION Mild diffuse theta slowing consistent with a mild diffuse encephalopathy but no focal abnormality was noted, no seizure activity was seen. MD CAROL Daniel/ELIZABETH /11:40 PM /5:23 AM
[2016-04-11 06:00] LABS: BICARBONATE 31.1 MEQ/L (21.0-32.0); POTASSIUM 4.2 MEQ/L (3.5-5.1)
[2016-04-11] MEDS: INSULIN ASPART SUPPLEMENTAL SCALE SQ SCH ×4 (06:08→21:00)
[2016-04-11] MEDS: LACTATED RINGER'S 1000 ML IV SCH (06:24)
--- NOTE | 2016-04-11 07:01 | PD.ORT.PN ---
Subjective Subjective Remarks POD 3 s/p left hip bipolar hemiarthroplasty states has not been out of bed. Objective Vitals Vital Signs Date Time Temp Pulse Resp B/P Pulse Ox O2 Delivery O2 Flow Rate FiO2 04/10/16 21:35 98.6 79 19 187/88 93 04/10/16 21:34 94 Nasal Cannula 2.00 04/10/16 21:26 Nasal Cannula 2.00 04/10/16 18:11 79 04/10/16 16:00 99.8 82 18 176/94 94 04/10/16 12:00 97 Nasal Cannula 2.00 04/10/16 12:00 98.0 82 18 169/71 95 04/10/16 08:00 98.2 71 18 152/69 99 04/10/16 07:05 Simple Mask 3.00 I/O 04/10/16 04/10/16 04/10/16 04/11/16 04/11/16 04/11/16 07:00 15:00 23:00 07:00 15:00 23:00 Intake Total 360 ml 600 ml 157 ml Output Total 20 ml Balance 340 ml 600 ml 157 ml Intake Oral 360 ml 600 ml IV Total 157 ml Drainage Total 20 ml # Voids 3 4 # Bowel Movements 0 Result Diagram: 04/09/16 0552 04/11/16 0509 Imaging Last 24 hours Impressions Chest X-Ray 04/07/16 0952 Signed Impressions: Service Date/Time: April 10:18 - CONCLUSION: Diminished lung volumes with minimal bibasilar atelectasis. Abran Ruth MD Objective Remarks LLE: dressings clean and dry. intact. no drainage. +CKS. NVI Assessment & Plan Assessment and Plan POD # 3 s/p left bipolar hip LLE WBAT posterior hip precautions CKS while in bed work with PT DVT prophylaxis DC to SNF when arrangements made f/u with [facility] or [facility] in 2 weeks Uvaldo Cuellar Apr 11, 2016 07:01
[2016-04-11] MEDS: SODIUM CHLOR 0.9% 1000 ML INJ 1,000 ML IV SCH ×2 (08:00→18:00)
[2016-04-11] MEDS: CHOLECALCIFEROL (VIT D3) 5000 UNIT CAP PO SCH (09:30)
[2016-04-11] MEDS: DOCUSATE SODIUM 100 MG CAP PO SCH ×2 (09:30→21:59)
[2016-04-11] MEDS: SODIUM CHLORIDE 0.9% FLUSH 5 ML FLUSH IVF SCH ×2 (09:33→22:01)
[2016-04-11] MEDS: ACETAMINOPHEN/HYDROcodone 325 MG/7.5 MG TAB PO PRN ×2 (09:45→21:59)
--- NOTE | 2016-04-11 13:05 | HHI.PR ---
Subjective Remarks Patient stable laying in bed, no acute issues denied pain, MRI showed mild to moderate ischemic changes in the white matter Will continue effort for rehabilitation placement Patient is afebrile no chest pain or short of breath Objective Vitals Vital Signs Date Time Temp Pulse Resp B/P Pulse Ox O2 Delivery O2 Flow Rate FiO2 04/11/16 12:00 99.0 83 18 146/58 96 04/11/16 08:00 99.6 79 18 171/73 95 04/11/16 04:40 98.1 103 18 131/88 95 04/11/16 00:41 98.7 81 18 128/85 95 04/10/16 21:35 98.6 79 19 187/88 93 04/10/16 21:34 94 Nasal Cannula 2.00 04/10/16 21:26 Nasal Cannula 2.00 04/10/16 18:11 79 04/10/16 16:00 99.8 82 18 176/94 94 I/O 04/10/16 04/10/16 04/10/16 04/11/16 04/11/16 04/11/16 07:00 15:00 23:00 07:00 15:00 23:00 Intake Total 360 ml 600 ml 397 ml 240 ml Output Total 20 ml Balance 340 ml 600 ml 397 ml 240 ml Intake Oral 360 ml 600 ml 240 ml 240 ml IV Total 157 ml Drainage Total 20 ml # Voids 3 4 1 1 # Bowel Movements 0 0 0 Result Diagram: 04/09/16 0552 04/11/16 0509 Objective Remarks --GENERAL: This is a well-nourished, well-developed patient, in no apparent distress. SKIN: No rashes, warm and dry HEAD: Atraumatic. Normocephalic. EYES: Pupils equal round and reactive. Extraocular motions intact. No scleral icterus. ENT: Nose without bleeding, or drainage, Airway patent. NECK: Trachea midline. Supple CARDIOVASCULAR: Regular rate and rhythm without murmurs, gallops, or rubs. RESPIRATORY: Fair air entry bilaterally. No wheezes, rales, or rhonchi. GASTROINTESTINAL: Abdomen soft, non-tender, nondistended. Positive bowel sounds MUSCULOSKELETAL: Left lower extremity in stabilizer NEUROLOGICAL: Awake and alert. Demented, Moves all extremity. Normal speech.he is better following command A/P Assessment and Plan 66 years old male who seems to have dementia, admitted status post fall, found to have - Left femoral neck displaced fracture status post fall: orthopedic consulted , s/p left hemiarthroplasty 04/08/16, post op management per protocol, DVT prophylaxis per ortho, pain management with morphine and [place] - Dementia with agitation of unknown origin Impaired cognitive capacity Questionable history of seizure: UA unremarkable for infection, ammonia level pending, better following commands , neurology consulted appreciated their help, B12, B6, RPR, as above, MRI negative except for white matter changes, patient to follow up with neurology as an outpatient - ROBERTA: Improved, creatinine trending down,, iv fluid, avoid nephrotoxins, monitor BMP - Diabetes mellitus 2: By definition multiple random reading above 200, hemoglobin A1c 7.1>> continue Accu-Chek with insulin sliding scale - Hypertension: Vasotec and clonidine as needed monitor blood pressure - DVT prophylaxis with SCD, [place] Clary El MD Apr 11, 2016 13:05
[2016-04-11] MEDS: ENOXAPARIN SODIUM 40 MG/0.4 ML SYRINGE SQ SCH (13:30)
[2016-04-11] MEDS: FLUCONAZOLE 400 MG PREMIX BAG 200 ML IV SCH (13:32)
[2016-04-11 15:14] LABS: RAPID PLASMA REAGIN SCREEN NON-REACTIVE (NON-REACTVE)
[2016-04-12 00:45] VITALS: BP 161/84; PULSE 72; RESP 18; TEMP 98; O2SAT 92
[2016-04-12] MEDS: SODIUM CHLOR 0.9% 1000 ML INJ 1,000 ML IV SCH (04:00)
[2016-04-12] MEDS: ENALAPRILAT 1.25 MG/ML VIAL IV PUSH PRN (06:05)
[2016-04-12 06:15] VITALS: BP 163/73; PULSE 66; RESP 17; TEMP 97.4; O2SAT 93
--- NOTE | 2016-04-12 06:54 | PD.ORT.PN ---
Subjective Subjective Remarks POD 4 s/p left hip bipolar hemiarthroplasty states out of bed with therapy yesterday Objective Vitals Vital Signs Date Time Temp Pulse Resp B/P Pulse Ox O2 Delivery O2 Flow Rate FiO2 04/12/16 00:45 98.0 72 18 161/84 92 04/11/16 22:31 96 Nasal Cannula 2.00 04/11/16 20:25 99.5 76 18 186/86 94 04/11/16 19:22 Nasal Cannula 2.00 04/11/16 16:00 98.7 72 18 150/67 94 04/11/16 13:40 95 Nasal Cannula 2.00 04/11/16 12:00 99.0 83 18 146/58 96 04/11/16 08:00 99.6 79 18 171/73 95 I/O 04/11/16 04/11/16 04/11/16 04/12/16 04/12/16 04/12/16 07:00 15:00 23:00 07:00 15:00 23:00 Intake Total 240 ml 720 ml Balance 240 ml 720 ml Intake Oral 240 ml 720 ml # Voids 1 3 # Bowel Movements 0 0 Result Diagram: 04/09/16 0552 04/11/16 0509 Imaging Last 24 hours Impressions Chest X-Ray 04/07/16 0952 Signed Impressions: Service Date/Time: April 10:18 - CONCLUSION: Diminished lung volumes with minimal bibasilar atelectasis. Abran Ruth MD Objective Remarks LLE: dressings clean and dry. intact. no drainage. +CKS. NVI Assessment & Plan Assessment and Plan POD # 4 s/p left bipolar hip LLE WBAT posterior hip precautions CKS while in bed work with PT DVT prophylaxis DC to SNF when arrangements made f/u with [facility] or [facility] in 2 weeks Uvaldo Cuellar Apr 12, 2016 06:54
[2016-04-12] MEDS: INSULIN ASPART SUPPLEMENTAL SCALE SQ SCH ×2 (07:00→13:01)
[2016-04-12] MEDS: LACTATED RINGER'S 1000 ML IV SCH (07:00)
[2016-04-12 07:55] VITALS: BP 148/82; PULSE 68; RESP 18; TEMP 98.1; O2SAT 96
[2016-04-12 08:00] VITALS: PULSE 68
[2016-04-12 09:00] VITALS: O2SAT 97
[2016-04-12] MEDS: CHOLECALCIFEROL (VIT D3) 5000 UNIT CAP PO SCH (09:30)
[2016-04-12] MEDS: DOCUSATE SODIUM 100 MG CAP PO SCH (09:30)
[2016-04-12] MEDS: SODIUM CHLORIDE 0.9% FLUSH 5 ML FLUSH IVF SCH (09:30)
[2016-04-12 12:08] VITALS: BP 149/69; PULSE 72; RESP 18; TEMP 98; O2SAT 95
--- NOTE | 2016-04-12 12:48 | HHI.DS ---
Discharge Summary Admission Date Apr 07, 2016 at 12:44 Discharge Date: Apr 12, 2016 Admitting Diagnosis femoral neck fracture (1) Femoral neck fracture ICD Code: S72.009A (2) Encephalopathy ICD Code: G93.40 Procedures Left femur fracture repair Orthopedic surgery Brief History - From Admission 66 years old male who seems to have dementia brought to the hospital after what seems like he sustained a fall, he was found to have left femoral neck displaced fracture on x-ray, patient is not able to recall the incidents, not sure if this is new or from few days ago. Patient is extremely poor historian not able to provide any information, he is oriented to place 2 months however he cannot recall anything from the past cannot give any past medical history social or family history. He is in pain in his lower extremity on the left CBC/BMP: 04/09/16 0552 04/11/16 0509 Significant Findings Laboratory Tests Test 04/11/16 05:09 Random Glucose 151 MG/DL (74-106) Calcium Level 8.4 MG/DL (8.5-10.1) PE at Discharge --GENERAL: This is a well-nourished, well-developed patient, in no apparent distress. SKIN: No rashes, warm and dry HEAD: Atraumatic. Normocephalic. EYES: Pupils equal round and reactive. Extraocular motions intact. No scleral icterus. ENT: Nose without bleeding, or drainage, Airway patent. NECK: Trachea midline. Supple CARDIOVASCULAR: Regular rate and rhythm without murmurs, gallops, or rubs. RESPIRATORY: Fair air entry bilaterally. No wheezes, rales, or rhonchi. GASTROINTESTINAL: Abdomen soft, non-tender, nondistended. Positive bowel sounds MUSCULOSKELETAL: Left lower extremity in stabilizer NEUROLOGICAL: Awake and alert. Demented, Moves all extremity. Normal speech.he is better following command Hospital Course 66 years old male who seems to have dementia, admitted status post fall, found to have - Left femoral neck displaced fracture status post fall: orthopedic consulted , s/p left hemiarthroplasty 04/08/16, post op management per protocol, DVT prophylaxis per ortho, pain management with morphine and Fairburn - Dementia with agitation of unknown origin Impaired cognitive capacity Questionable history of seizure: UA unremarkable for infection, ammonia level pending, better following commands , neurology consulted appreciated their help, B12, B6, RPR, as above, MRI negative except for white matter changes, patient to follow up with neurology as an outpatient - ROBERTA: Improved, creatinine trending down,, iv fluid, avoid nephrotoxins, monitor BMP - Diabetes mellitus 2: By definition multiple random reading above 200, hemoglobin A1c 7.1>> continue Accu-Chek with insulin sliding scale - Hypertension: Vasotec and clonidine as needed monitor blood pressure - DVT prophylaxis with SCD, Lovenox [id number] encounter performed with the patient on discharge day, as well as physical exam, summary of hospitalization course and postdischarge plan has been D/W the patient. D/W nurse D/W window caser. Discharge medications reviewed and printed and signed, post discharge follow up visit with PCP and other specialist as well as Brief hospital course and discharge summary has been placed. Pt Condition on Discharge: Fair Discharge Disposition: Discharge to SNF Discharge Time: > 30 minutes Discharge Instructions DIET: Follow Instructions for: Heart Healthy Diet, Diabetic Diet Activities you can perform: See Additionl Instruction Other Activity Instructions: per PT recs Follow up Referrals: Orthopedics - 04/22/16 @ [facility] with Willem Dumont MD New Medications: Hydrocodone-Acetaminophen (Fairburn) 10-325 Mg Tab 1 TAB PO Q4H PRN PAIN #60 Ref 0 TAB Rivaroxaban (Xarelto) 10 Mg Tab 10 MG PO DAILY Blood Clot Prevention #14 Ref 0 TAB Walker with Front Wheels (Walker with Front Wheels) 1 Mis Mis 1 EA .ROUTE DIRECTED #1 Ref 0 EA Continued Medications: Metformin (Metformin) 1,000 Mg Tab 1000 MG PO BIDPC With meals Blood Sugar Management #0 Ref 0 TAB Simvastatin (Simvastatin) 20 Mg Tab 20 MG PO DAILY Cholesterol Management #0 Ref 0 TAB Clary El MD Apr 12, 2016 12:48
[2016-04-12] MEDS: ENOXAPARIN SODIUM 40 MG/0.4 ML SYRINGE SQ SCH (13:00)
[2016-04-12] MEDS: ACETAMINOPHEN/HYDROcodone 325 MG/7.5 MG TAB PO PRN (13:01)
== END 2016-04-12 14:33 | DRG 469 ==
LOC: HOR 09:45 → NEDA 12:44 → N06B 21:06 → N06A 04-09 17:31 → N06B 04-09 18:21 → N06A 04-09 18:22
PROVIDERS: ADMIT Hospitalist; ATTEND Hospitalist
PROC: 0SRS0JZ Replacement of Left Hip Joint, Femoral Surface with Synthetic Substitute, Open Approach (ICD-10-PCS; principal; 2016-04-08 12:55)
DX: S72.002A Fracture of unspecified part of neck of left femur, initial encounter for closed fracture (principal); G93.40 Encephalopathy, unspecified; N17.9 Acute kidney failure, unspecified; I11.0 Hypertensive heart disease with heart failure; Z68.41 Body mass index [BMI] 40.0-44.9, adult; F03.91 Unspecified dementia, unspecified severity, with behavioral disturbance; I50.9 Heart failure, unspecified; E11.9 Type 2 diabetes mellitus without complications; D72.829 Elevated white blood cell count, unspecified; B37.2 Candidiasis of skin and nail; W19.XXXA Unspecified fall, initial encounter; E66.9 Obesity, unspecified; Y92.009 Unspecified place in unspecified non-institutional (private) residence as the place of occurrence of the external cause; Z79.84 Long term (current) use of oral hypoglycemic drugs
CPT/HCPCS: 70450; 70551; 71010; 73502; 76937; 80048; 80053; 81001; 82140; 82306; 82550; 82607; 82948; 83036; 84207; 85014; 85018; 85025; 85610; 85730; 86592; 93005; 95819; C1776; J0690; J1450; J1580; J1650; J1815; J2270; J2405; J2710; J3010; J3370; J7030; J7050; J7120; L1830; P9612

== ENCOUNTER 2017-03-28 12:35 | Inpatient (IN) | payer MEDICARE ==
[~2017-03-28] VITALS: Ht 172.7 cm; Wt 129.1 kg
[~2017-03-28 12:35] MED LIST changes: -AMLO5TAB96 PO; -ASPI325T PO; -FURO8SOL PO; -GLUC1000 PO; +HYDR-3366 PO; -LISI-357 PO; -LYRI150C PO; +METF1000 PO; -SIMV20 PO; +SIMV20TA PO; +WALKER WHEELS/F1 MIS; +XARE10TA PO; +htn med PO
[2017-03-28 12:36] VITALS: BP 121/68; PULSE 90; RESP 15; TEMP 98.7; O2SAT 90
[2017-03-28] MEDS ORDERED: PIPERACIL-TAZO 4.5 GM PREMIX 100 ML IV STA (14:19)
[2017-03-28] MEDS ORDERED: VANCOMYCIN INJ 1,000 MG in SODIUM CHLOR 0.9% 250 ML INJ 250 ML IV STA (14:19)
--- NOTE | 2017-03-28 14:19 | PD ---
HPI Chief Complaint: Skin Problem Time Seen by Provider: 14:15 Travel History International Travel<30 days: No Contact w/Intl Traveler<30days: No Traveled to known affect area: No History of Present Illness HPI 67-year-old male patient with history of diabetes, has a right heel ulcer which appears to have been doing poorly, sent in by Dr. Rodriguez to be admitted with IV antibiotics. Patient denies any fevers, chest pains, shortness of breath, or any other issues. Modifying Factors: None Associated Signs & Symptoms: Heel ulcer which has been worsening, sent in by his physician for IV antibiotics and further treatment Risk Factors: Diabetic PFSH Past Medical History Anxiety: No Depression: No Cancer: No Congestive Heart Failure: Yes Diabetes: Yes Patient Takes Glucophage: No Genitourinary: No Hypertension: Yes Musculoskeletal: No Neurologic: No Psychiatric: No Respiratory: No Past Surgical History Surgical History: No Previous Surgery Social History Alcohol Use: No Tobacco Use: No Substance Use: No Allergies-Medications (Allergen,Severity, Reaction): Coded Allergies: No Known Allergies (Verified Adverse Reaction, Unknown, 03/28/17) Reported Meds & Prescriptions Reported Meds & Active Scripts Active Xarelto (Rivaroxaban) 10 Mg Tab 10 Mg PO DAILY Reported [htn med] Unknown Dose PO DAILY Simvastatin 20 Mg Tab 20 Mg PO DAILY Metformin (Metformin HCl) 1,000 Mg Tab 1,000 Mg PO BIDPC With meals Review of Systems Except as stated in HPI: all other systems reviewed are Neg Physical Exam Narrative GENERAL: Well-developed obese elderly white male patient currently in mild distress. Awake and oriented 3. SKIN: Focused skin assessment warm/dry. There is a 5 cm large ulcer at the right heel with iodine covered gauze. Nontender palpation. HEAD: Atraumatic. Normocephalic. EYES: Pupils equal and round. No scleral icterus. No injection or drainage. ENT: No nasal bleeding or discharge. Mucous membranes pink and moist. NECK: Trachea midline. No JVD. Supple. CARDIOVASCULAR: Regular rate and rhythm. No murmur appreciated. RESPIRATORY: No accessory muscle use. Clear to auscultation. Breath sounds equal bilaterally. GASTROINTESTINAL: Abdomen soft, non-tender, protuberant, nondistended. Hepatic and splenic margins not palpable. MUSCULOSKELETAL: No obvious deformities. No clubbing. No cyanosis. No edema. NEUROLOGICAL: Awake and alert. No obvious cranial nerve deficits. Motor grossly within normal limits. Normal speech. PSYCHIATRIC: Appropriate mood and affect; insight and judgment poor. Data Data Last Documented VS Vital Signs Date Time Temp Pulse Resp B/P (MAP) Pulse Ox O2 Delivery O2 Flow Rate FiO2 03/28/17 12:36 98.7 90 15 121/68 (85) 90 Orders Orders Complete Blood Count With Diff (03/28/17 12:55) Comprehensive Metabolic Panel (03/28/17 12:55) Prothrombin Time / Inr (Pt) (03/28/17 12:55) Act Partial Throm Time (Ptt) (03/28/17 12:55) Westergren Sedimentation Rate (03/28/17 12:55) C-Reactive Protein (Crp) (03/28/17 12:55) Foot, Complete (Hyc1dqw) (03/28/17 ) Piperacil-Tazo 4.5 Gm Premix (Zosyn 4.5 (03/28/17 14:19) Vancomycin Inj (Vancomycin Inj) (03/28/17 14:19) Labs Laboratory Tests Test 03/28/17 14:25 White Blood Count 14.9 TH/MM3 Red Blood Count 5.39 MIL/MM3 Hemoglobin 14.5 GM/DL Hematocrit 45.4 % Mean Corpuscular Volume 84.2 FL Mean Corpuscular Hemoglobin 26.9 PG Mean Corpuscular Hemoglobin Concent 31.9 % Red Cell Distribution Width 17.1 % Platelet Count 372 TH/MM3 Mean Platelet Volume 8.0 FL Neutrophils (%) (Auto) 64.3 % Lymphocytes (%) (Auto) 26.7 % Monocytes (%) (Auto) 5.6 % Eosinophils (%) (Auto) 2.0 % Basophils (%) (Auto) 1.4 % Neutrophils # (Auto) 9.6 TH/MM3 Lymphocytes # (Auto) 4.0 TH/MM3 Monocytes # (Auto) 0.8 TH/MM3 Eosinophils # (Auto) 0.3 TH/MM3 Basophils # (Auto) 0.2 TH/MM3 CBC Comment AUTO DIFF Differential Comment AUTO DIFF CONFIRMED Toxic Granulation 1+ Toxic Vacuolation PRESENT Platelet Estimate NORMAL Platelet Morphology Comment NORMAL Basophilic Stippling FAINT Spherocytes 1+ Erythrocyte Sedimentation Rate 32 mm/hr Prothrombin Time 10.5 SEC Prothromb Time International Ratio 1.0 RATIO Activated Partial Thromboplast Time 28.2 SEC Blood Urea Nitrogen 21 MG/DL Creatinine 1.39 MG/DL Random Glucose 90 MG/DL Total Protein 7.6 GM/DL Albumin 3.2 GM/DL Calcium Level 9.2 MG/DL Alkaline Phosphatase 81 U/L Aspartate Amino Transf (AST/SGOT) 12 U/L Alanine Aminotransferase (ALT/SGPT) 17 U/L Total Bilirubin 0.3 MG/DL Sodium Level 138 MEQ/L Potassium Level 4.9 MEQ/L Chloride Level 99 MEQ/L Carbon Dioxide Level 32.3 MEQ/L Anion Gap 7 MEQ/L Estimat Glomerular Filtration Rate 51 ML/MIN C-Reactive Protein 1.84 MG/DL [facility] Medical Decision Making Medical Screen Exam Complete: Yes Emergency Medical Condition: Yes Medical Record Reviewed: Yes Interpretation(s) Laboratory Tests Test 03/28/17 14:25 White Blood Count 14.9 TH/MM3 (4.0-11.0) Mean Corpuscular Hemoglobin 26.9 PG (27.0-34.0) Mean Corpuscular Hemoglobin Concent 31.9 % (32.0-36.0) Neutrophils # (Auto) 9.6 TH/MM3 (1.8-7.7) Toxic Granulation 1+ (NORMAL) Toxic Vacuolation PRESENT (NONE SEEN) Basophilic Stippling FAINT (NORMAL) Spherocytes 1+ (NORMAL) Erythrocyte Sedimentation Rate 32 mm/hr (0-20) Blood Urea Nitrogen 21 MG/DL (7-18) Creatinine 1.39 MG/DL (0.60-1.30) Albumin 3.2 GM/DL (3.4-5.0) Aspartate Amino Transf (AST/SGOT) 12 U/L (15-37) Carbon Dioxide Level 32.3 MEQ/L (21.0-32.0) Estimat Glomerular Filtration Rate 51 ML/MIN (>89) C-Reactive Protein 1.84 MG/DL (0.00-0.30) Differential Diagnosis Enlarging ulcer versus cellulitis versus osteomyelitis Narrative Course Lab work indicative of underlying sepsis. IV antibiotic screen initiated after cultures taken in the ER. Case is discussed with Dr. Edwards for admission. Diagnosis Primary Impression: Sepsis Additional Impression: Heel ulcer Admitting Information Admitting Physician Requests: Admit Reyes Roman MD Mar 28, 2017 14:19
--- NOTE | 2017-03-28 14:37 | RADRPT ---
EXAM DATE/TIME: 03/28/2017 13:37 [facility] COMPARISON: No previous studies available for comparison. INDICATIONS : Right foot pain with wound on heel. MEDICAL HISTORY : Hypertension. Diabetes mellitus type II. Congestive heart failure. SURGICAL HISTORY : None. ENCOUNTER: Initial ACUITY: 1 day PAIN SCORE: 4/10 LOCATION: Right foot, heel FINDINGS: There is an ulceration in the soft tissues of the heel. Soft tissue swelling right foot. Remote fract ure distal fifth metatarsal. Moderate to severe osteoarthritis. CONCLUSION: 1. Ulceration of the soft tissues of the heel. Soft tissue swelling right foot. Remote fracture dista l fifth metatarsal. Elroy Contreras MD on March 28, 2017 at 14:34 Board Certified Radiologist. This report was verified electronically.
[2017-03-28 14:38] LABS: AUTOMATED NEUTROPHIL # 9.6 TH/MM3 (1.8-7.7); BASOPHIL # 0.2 TH/MM3 (0-0.2); BASOPHIL % 1.4 % (0.0-2.0); EOSINOPHIL # 0.3 TH/MM3 (0-0.4); HEMATOCRIT 45.4 % (39.0-51.0); HEMOGLOBIN 14.5 GM/DL (13.0-17.0); LYMPH % 26.7 % (9.0-44.0); MEAN CELL VOLUME 84.2 FL (80.0-100.0); MEAN CORPUSCULAR HEMOGLOBIN 26.9 PG (27.0-34.0); MEAN CORPUSCULAR HGB CONC 31.9 % (32.0-36.0); MONO % 5.6 % (0.0-8.0); MONOCYTE # 0.8 TH/MM3 (0-0.9); NEUT % 64.3 % (16.0-70.0); PLATELET COUNT 372 TH/MM3 (150-450); RED BLOOD COUNT 5.39 MIL/MM3 (4.50-5.90); RED CELL DISTRIBUTION WIDTH 17.1 % (11.6-17.2); WHITE BLOOD COUNT 14.9 TH/MM3 (4.0-11.0)
[2017-03-28 14:46] LABS: PROTHROMBIN TIME - PATIENT 10.5 SEC (9.8-11.6)
[2017-03-28 14:56] LABS: ALBUMIN 3.2 GM/DL (3.4-5.0); ALT (GPT) 17 U/L (12-78); AST (GOT) 12 U/L (15-37); BICARBONATE 32.3 MEQ/L (21.0-32.0); BLOOD UREA NITROGEN 21 MG/DL (7-18); C-REACTIVE PROTEIN 1.84 MG/DL (0.00-0.30); CALCIUM 9.2 MG/DL (8.5-10.1); CHLORIDE 99 MEQ/L (98-107); CREATININE 1.39 MG/DL (0.60-1.30); GLOMERULAR FILTRATION RATE 51 ML/MIN (>89); GLUCOSE,RANDOM 90 MG/DL (74-106); SODIUM (NA) 138 MEQ/L (136-145)
[2017-03-28 14:59] LABS: ALKALINE PHOSPHATASE 81 U/L (45-117); TOTAL BILIRUBIN ADULT 0.3 MG/DL (0.2-1.0); TOTAL PROTEIN 7.6 GM/DL (6.4-8.2)
[2017-03-28 15:17] LABS: SPHEROCYTES 1+ (NORMAL)
[2017-03-28 15:18] LABS: TOXIC GRANULATION 1+ (NORMAL); TOXIC VACUOLATION PRESENT (NONE SEEN)
[2017-03-28 15:53] VITALS: BP 138/65; PULSE 73; RESP 17; O2SAT 89
[2017-03-28 16:00] VITALS: BP_SYST 121; BP_SYST 126; BP_DIAS 55; BP_DIAS 72; PULSE 64; PULSE 82; RESP 14; RESP 16; O2SAT 100; O2SAT 90
[2017-03-28] MEDS ORDERED: ZINC220T PO (16:20)
[2017-03-28] MEDS ORDERED: SACC1CAP3 PO (16:20)
[2017-03-28] MEDS ORDERED: GABA100C4 PO (16:20)
[2017-03-28] MEDS ORDERED: MAPA325T PO (16:20)
[2017-03-28] MEDS ORDERED: NYST10007 TOPICAL (16:20)
[2017-03-28] MEDS ORDERED: DONE5TAB7 PO (16:20)
[2017-03-28] MEDS ORDERED: DAILTAB PO (16:20)
[2017-03-28] MEDS ORDERED: LISI10TA3 PO (16:20)
[2017-03-28] MEDS ORDERED: ASPI-516 CHEW (16:20)
[2017-03-28] MEDS ORDERED: BACT800T5 PO (16:20)
[2017-03-28] MEDS ORDERED: ALBUAER3 INH (16:20)
[2017-03-28] MEDS ORDERED: MIRTA15 PO (16:20)
[2017-03-28] MEDS ORDERED: Vancomycin Consult Pharmacy 1 EA OTHER SCH (17:15)
[2017-03-28] MEDS ORDERED: SODIUM CHLORIDE 0.9% FLUSH 10 ML FLUSH IV FLUSH PRN (17:15)
[2017-03-28] MEDS ORDERED: NALOXONE HCL 0.4 MG/ML AMP IV PUSH PRN (17:15)
[2017-03-28] MEDS ORDERED: traMADol HCL 50 MG TAB PO PRN (17:30)
[2017-03-28 18:00] VITALS: BP 144/53; PULSE 88; RESP 17; O2SAT 95
[2017-03-28] MEDS: VANCOMYCIN 1 GM/200 ML PREMIX IV SCH (18:32)
[2017-03-28] MEDS: LACTOBACILLUS ACIDOPHILUS TAB PO SCH (18:32)
[2017-03-28] MEDS ORDERED: GLUCAGON 1 MG/ML VIAL OTHER PRN (20:45)
[2017-03-28] MEDS ORDERED: DEXTROSE 50% IN WATER 50 ML VIAL(D50) IV PUSH PRN (20:45)
[2017-03-28 21:00] VITALS: BP 126/62; PULSE 86; RESP 20; O2SAT 96
[2017-03-28] MEDS: SODIUM CHLORIDE 0.9% FLUSH 10 ML FLUSH IV FLUSH SCH (22:14)
[2017-03-28] MEDS: GABAPENTIN 100 MG CAP PO SCH (22:14)
[2017-03-28] MEDS: INSULIN ASPART SUPPLEMENTAL SCALE SQ SCH (22:14)
[2017-03-28] MEDS: PIPERACIL-TAZO 4.5 GM PREMIX 100 ML IV SCH (22:14)
[2017-03-29] VITALS (7 sets, daily range): BP systolic 110–138; BP diastolic 57–80; PULSE 70–100; RESP 16–18; TEMP 97.5–98.3; O2SAT 93–97
[2017-03-29] MEDS: PIPERACIL-TAZO 4.5 GM PREMIX 100 ML IV SCH ×4 (03:32→21:18)
--- NOTE | 2017-03-29 05:45 | HHI.HP ---
[facility] Service [facility] Primary Care Physician Leobardo Vleez M.D. Admission Diagnosis worsening heel ulcer/sepsis Diagnoses: (1) Heel ulcer (2) Dementia (3) Type 2 diabetes mellitus Chief Complaint: Nonhealing wound right heel Travel History International Travel<30 Days: No Contact w/Intl Traveler <30 Da: No Traveled to Known Affected Are: No History of Present Illness Mr. Chavez is a 67 y/o male with a history of dementia, CHF, hypertension, and type 2 diabetes mellitus who was sent by his international student counselor Dr. Paz for evaluation of a chronic right heel ulcer. The patient is seen in the ED. He tells me it is 1950. He is not sure of who his PCP is and cannot tell me where he is. He is oriented to self only. He denies all of the medical conditions on his medical record. He is a patient at [facility] in [place]. He also tells me there is nothing wrong with his foot or heel. He is incontinent of urine. Review of Systems ROS Limitations: Poor Historian (denies any problems but oriented to self only) Past Family Social History Past Medical History Type 2 DM Hypertension CHF Right heel nonhealing wound Dementia . Past Surgical History Unable to obtain due to patient confusion - oriented only to self . Reported Medications Reported Meds & Active Scripts Active Reported Proair Hfa 8.5 GM Inh (Albuterol Sulfate) 90 Mcg/Act Aer 2 Puff INH Q4HR PRN 108 mcg/actuation Nystop Topical (Nystatin Topical) 100,000 Unit/Gm Powd 1 Applic TOPICAL Q4HR PRN Mapap (Acetaminophen) 325 Mg Tab 650 Mg PO Q6HR PRN Probiotic (Saccharomyces Boulardii) 250 Mg Cap 250 Mg PO TID Bactrim DS (Sulfamethoxazole-Trimethoprim) 800-160 Mg Tab 1 Tab PO BID Gabapentin 100 Mg Cap 200 Mg PO BID Zinc Sulfate 220 Mg Tab 220 Mg PO DAILY Mirtazapine 15 Mg Tab 15 Mg PO DAILY@1600 Lisinopril 10 Mg Tab 10 Mg PO DAILY Donepezil 5 Mg Tab 5 Mg PO DAILY Daily-Frank/Iron/Beta-Wilson (Multiple Vitamins W/ Iron) 1 Tab Tab 1 Tab PO DAILY Aspirin 81 Mg Chew 81 Mg CHEW DAILY Simvastatin 20 Mg Tab 20 Mg PO DAILY Metformin (Metformin HCl) 1,000 Mg Tab 1,000 Mg PO BIDPC With meals . Allergies: Coded Allergies: No Known Allergies (Verified Allergy, Unknown, 03/28/17) Active Ordered Medications Current Medications Piperacillin Sod/ Tazobactam Sod 100 ml @ 200 mls/hr ONCE STAT IV Last administered on 03/28/17at 14:39; Start 03/28/17 at 14:19; Stop 03/28/17 at 14:48 ; Status DC Vancomycin HCl 1000 mg/Sodium Chloride 250 ml @ 250 mls/hr ONCE STAT IV Last administered on 03/28/17at 15:37; Start 03/28/17 at 14:19; Stop 03/28/17 at 15:18 ; Status DC Sodium Chloride (NS Flush) 2 ml UNSCH PRN IV FLUSH FLUSH AFTER USING IV ACCESS ; Start 03/28/17 at 17:15 Sodium Chloride (NS Flush) 2 ml BID IV FLUSH Last administered on 03/28/17at 22: 14; Start 03/28/17 at 21:00 Naloxone HCl (Narcan Inj) 0.4 mg UNSCH PRN IV PUSH SEE LABEL COMMENTS; Start at 17:15 Pharmacy Profile Note 0 ml @ 0 mls/hr UNSCH OTHER ; Start 03/28/17 at 17:15 Piperacillin Sod/ Tazobactam Sod 100 ml @ 200 mls/hr Q6H IV Last administered on 03/29/17at 03:32; Start 03/28/17 at 21:00 Lactobacillus Acidophilus (Lactinex) 1 tab TID PO Last administered on at 18:32; Start 03/28/17 at 18:00 Tramadol HCl (Ultram) 50 mg Q6H PRN PO PAIN >5; Start 03/28/17 at 17:30 Vancomycin/Sodium Chloride 200 ml @ 200 mls/hr Q12H IV Last administered on at 18:32; Start 03/28/17 at 18:00 Donepezil HCl (Aricept) 5 mg DAILY PO ; Start 03/29/17 at 09:00 Gabapentin (Neurontin) 200 mg BID PO Last administered on 03/28/17at 22:14; Start 03/28/17 at 21:00 Lisinopril (Prinivil) 10 mg DAILY PO ; Start 03/29/17 at 09:00 Mirtazapine (Remeron) 15 mg DAILY@1600 PO ; Start 03/29/17 at 16:00 Pravastatin Sodium (Pravachol) 40 mg DAILY PO ; Start 03/29/17 at 09:00 Dextrose (D50w (Vial) Inj) 50 ml UNSCH PRN IV PUSH HYPOGLYCEMIA-SEE COMMENTS; Start 03/28/17 at 20:45 Glucagon (Glucagon Inj) 1 mg UNSCH PRN OTHER HYPOGLYCEMIA-SEE COMMENTS; Start 03/28/17 at 20:45 Insulin Aspart (NovoLOG SUPPLEMENTAL SCALE) 1 ACHS SLIDING SCALE SQ Last administered on 03/28/17at 22:14; Start 03/28/17 at 21:00 Miscellaneous Information SPECIFIC LAB TO BE DRAWN:VANCO TROUGH DATE TO BE DR... ONCE ONCE .XX ; Start 03/29/17 at 17:45; Stop 03/29/17 at 17:46 . Family History Unable to obtain due to patient confusion - oriented only to self . Social History Unable to obtain due to patient confusion - oriented only to self . Physical Exam Vital Signs Vital Signs Date Time Temp Pulse Resp B/P (MAP) Pulse Ox O2 Delivery O2 Flow Rate FiO2 03/29/17 03:00 82 16 110/57 (74) 94 Nasal Cannula 2.00 03/29/17 00:09 70 18 113/63 (80) 93 Nasal Cannula 2.00 03/28/17 21:00 86 20 126/62 (83) 96 03/28/17 18:00 88 17 144/53 (83) 95 Nasal Cannula 2.00 03/28/17 16:00 64 14 121/55 (77) 90 Nasal Cannula 2.00 03/28/17 16:00 82 16 126/72 (90) 100 Nasal Cannula 2.00 03/28/17 15:53 73 17 138/65 (89) 89 Room Air 03/28/17 12:36 98.7 90 15 121/68 (85) 90 Physical Exam GENERAL: This is a chronically ill-appearing male patient, in no apparent distress; oriented to self only. SKIN: Cool and dry. Right heel wound covered with dressing. Feet with peeling skin. HEAD: Atraumatic. Normocephalic. EYES: No scleral icterus. No injection. ENT: Nose without bleeding, purulent drainage. NECK: Trachea midline. No JVD. CARDIOVASCULAR: Regular rate and rhythm without murmurs, gallops, or rubs. RESPIRATORY: Clear to auscultation. Breath sounds equal bilaterally. No wheezes , rales, or rhonchi. GASTROINTESTINAL: Abdomen large, soft, non-tender, nondistended. No guarding. MUSCULOSKELETAL: Lower extremities with peeling skin and slight dark discoloration noted; right heel wound covered with clean dressing. NEUROLOGICAL: Awakened for exam and alert to self only. . Laboratory Laboratory Tests Test 03/28/17 14:25 White Blood Count 14.9 Red Blood Count 5.39 Hemoglobin 14.5 Hematocrit 45.4 Mean Corpuscular Volume 84.2 Mean Corpuscular Hemoglobin 26.9 Mean Corpuscular Hemoglobin Concent 31.9 Red Cell Distribution Width 17.1 Platelet Count 372 Mean Platelet Volume 8.0 Neutrophils (%) (Auto) 64.3 Lymphocytes (%) (Auto) 26.7 Monocytes (%) (Auto) 5.6 Eosinophils (%) (Auto) 2.0 Basophils (%) (Auto) 1.4 Neutrophils # (Auto) 9.6 Lymphocytes # (Auto) 4.0 Monocytes # (Auto) 0.8 Eosinophils # (Auto) 0.3 Basophils # (Auto) 0.2 CBC Comment AUTO DIFF Differential Comment AUTO DIFF CONFIRMED Toxic Granulation 1+ Toxic Vacuolation PRESENT Platelet Estimate NORMAL Platelet Morphology Comment NORMAL Basophilic Stippling FAINT Spherocytes 1+ Erythrocyte Sedimentation Rate 32 Prothrombin Time 10.5 Prothromb Time International Ratio 1.0 Activated Partial Thromboplast Time 28.2 Blood Urea Nitrogen 21 Creatinine 1.39 Random Glucose 90 Total Protein 7.6 Albumin 3.2 Calcium Level 9.2 Alkaline Phosphatase 81 Aspartate Amino Transf (AST/SGOT) 12 Alanine Aminotransferase (ALT/SGPT) 17 Total Bilirubin 0.3 Sodium Level 138 Potassium Level 4.9 Chloride Level 99 Carbon Dioxide Level 32.3 Anion Gap 7 Estimat Glomerular Filtration Rate 51 C-Reactive Protein 1.84 Result Diagram: 03/28/17 1425 03/28/17 1425 Imaging Last Impressions Foot X-Ray 03/28/17 0000 Signed Impressions: Service Date/Time: Tuesday, March 28, 2017 13:37 - CONCLUSION: 1. Ulceration of the soft tissues of the heel. Soft tissue swelling right foot. Remote fracture distal fifth metatarsal. Elroy Contreras MD . Caprini VTE Risk Assessment Caprini VTE Risk Assessment: Mod/High Risk (score >= 2) Caprini Risk Assessment Model Point Value = 1 Point Value = 2 Point Value = 3 Point Value = 5 Age 41-60 Minor surgery BMI > 25 kg/m2 Swollen legs Varicose veins or History of unexplained or recurrent spontaneous Oral contraceptives or hormone replacement Sepsis (< 1 month) Serious lung disease, including pneumonia (< 1 month) Abnormal pulmonary function Acute myocardial infarction Congestive heart failure (< 1 month) History of inflammatory bowel disease Medical patient at bed rest Age 61-74 Arthroscopic surgery Major open surgery (> 45 min) Laparoscopic surgery (> 45 min) Malignancy Confined to bed (> 72 hours) Immobilizing plaster cast Central venous access Age >= 75 History of VTE Family history of VTE Factor V Leiden Prothrombin [id number] Lupus anticoagulant Anticardiolipin antibodies Elevated serum homocysteine Heparin-induced thrombocytopenia Other congenital or acquired thrombophilia Stroke (< 1 month) Elective arthroplasty Hip, pelvis, or leg fracture Acute spinal cord injury (< 1 month) Prophylaxis Regimen Total Risk Factor Score Risk Level Prophylaxis Regimen 0-1 Low Early ambulation 2 Moderate Order ONE of the following: *Sequential Compression Device (SCD) *Heparin 5000 units SQ BID 3-4 Higher Order ONE of the following medications: *Heparin 5000 units SQ TID *Enoxaparin/Lovenox 40 mg SQ daily (WT < 150 kg, CrCl > 30 mL/min) *Enoxaparin/Lovenox 30 mg SQ daily (WT < 150 kg, CrCl > 10-29 mL/min) *Enoxaparin/Lovenox 30 mg SQ BID (WT < 150 kg, CrCl > 30 mL/min) AND/OR *Sequential Compression Device (SCD) 5 or more Highest Order ONE of the following medications: *Heparin 5000 units SQ TID (Preferred with Epidurals) *Enoxaparin/Lovenox 40 mg SQ daily (WT < 150 kg, CrCl > 30 mL/min) *Enoxaparin/Lovenox 30 mg SQ daily (WT < 150 kg, CrCl > 10-29 mL/min) *Enoxaparin/Lovenox 30 mg SQ BID (WT < 150 kg, CrCl > 30 mL/min) AND *Sequential Compression Device (SCD) Assessment and Plan Problem List: (1) Heel ulcer ICD Code: L97.409 - Non-pressure chronic ulcer of unspecified heel and midfoot with unspecified severity Status: Acute (2) Type 2 diabetes mellitus ICD Code: E11.9 - Type 2 diabetes mellitus without complications Status: Chronic (3) Dementia ICD Code: F03.90 - Unspecified dementia without behavioral disturbance Status: Chronic Assessment and Plan Mr. Chavez is a 67 y/o male with a history of dementia, CHF, hypertension, and type 2 diabetes mellitus who was sent by his international student counselor Dr. Paz for evaluation of a chronic right heel ulcer. Nonhealing wound right heel - patient sent from Dr. Orr's office with instructions to: obtain MRI with and without contrast right foot and ankle - await results; consult vascular surgery; consult ID - CBC 14.9, CRP 1.84, ESR - 32 - holding off on ID consult for now until MRI results are available - Antibiotics: Zosyn and Vancomycin IV - consult podiatry Type 2 Diabetes Mellitus - Hold Metformin - Accuchecks ac and hs with low dose Novolog SS coverage - hypoglycemia treatment protocol - monitor trends in blood glucose and adjust treatment as indicated Dementia - resume home Aricept DVT prophylaxis - heparin 5000 units subq q8h Discussed Condition With Dr. Pitt and RN . Physician Certification 2 Midnight Certification Type: Admission for Inpatient Services Order for Inpatient Services The services are ordered in accordance with Medicare regulations or non- Medicare payer requirements, as applicable. In the case of services not specified as inpatient-only, they are appropriately provided as inpatient services in accordance with the 2-midnight benchmark. Estimated LOS (days): 4 days is the estimated time the patient will need to remain in the hospital, assuming treatment plan goals are met and no additional complications. Post-Hospital Plan: Not yet determined Problem Qualifiers (1) Type 2 diabetes mellitus: Radha Roldan Mar 29, 2017 05:45
[2017-03-29] MEDS: VANCOMYCIN 1 GM/200 ML PREMIX IV SCH ×2 (06:21→18:37)
[2017-03-29] MEDS: HEPARIN SODIUM - SQ 10,000 UNITS/ML VIAL SQ SCH ×3 (06:22→21:21)
[2017-03-29] MEDS: INSULIN ASPART SUPPLEMENTAL SCALE SQ SCH ×4 (08:00→21:18)
[2017-03-29] MEDS: LISINOPRIL 10 MG TAB PO SCH (09:00)
[2017-03-29] MEDS: SODIUM CHLORIDE 0.9% FLUSH 10 ML FLUSH IV FLUSH SCH ×2 (09:00→21:19)
[2017-03-29] MEDS: GABAPENTIN 100 MG CAP PO SCH ×2 (09:00→21:18)
[2017-03-29] MEDS: LACTOBACILLUS ACIDOPHILUS TAB PO SCH ×3 (09:00→18:11)
[2017-03-29] MEDS: PRAVASTATIN SOD 40 MG TAB PO SCH (09:00)
[2017-03-29] MEDS: DONEPEZIL HCL 5 MG TAB PO SCH (09:00)
[2017-03-29 09:14] LABS: AUTOMATED NEUTROPHIL # 8.2 TH/MM3 (1.8-7.7); BASOPHIL # 0.3 TH/MM3 (0-0.2); BASOPHIL % 2.4 % (0.0-2.0); EOSINOPHIL # 0.3 TH/MM3 (0-0.4); EOSINOPHIL % 2.1 % (0.0-4.0); HEMATOCRIT 41.4 % (39.0-51.0); HEMOGLOBIN 13.5 GM/DL (13.0-17.0); LYMPHOCYTE # 2.5 TH/MM3 (1.0-4.8); MEAN CELL VOLUME 83.2 FL (80.0-100.0); MEAN CORPUSCULAR HEMOGLOBIN 27.2 PG (27.0-34.0); MEAN CORPUSCULAR HGB CONC 32.7 % (32.0-36.0); MEAN PLATELET VOLUME 8.3 FL (7.0-11.0); MONO % 6.1 % (0.0-8.0); MONOCYTE # 0.7 TH/MM3 (0-0.9); NEUT % 68.4 % (16.0-70.0); PLATELET COUNT 333 TH/MM3 (150-450); RED BLOOD COUNT 4.98 MIL/MM3 (4.50-5.90); RED CELL DISTRIBUTION WIDTH 17.1 % (11.6-17.2); WHITE BLOOD COUNT 11.9 TH/MM3 (4.0-11.0)
[2017-03-29 09:40] LABS: BICARBONATE 30.8 MEQ/L (21.0-32.0); CALCIUM 9.2 MG/DL (8.5-10.1); CREATININE 1.39 MG/DL (0.60-1.30)
[2017-03-29 10:22] LABS: BANDS 3 % (0-6); LYMPHOCYTES 16 % (9-44); MONOCYTES 6 % (0-8); MYELOCYTES 1 % (0-0); NEUTROPHIL # MANUAL DIFF 9.2 TH/MM3 (1.8-7.7); POLYS (SEG NEUTROPHILS) 73 % (16-70)
--- NOTE | 2017-03-29 10:22 | PD.VS.PN ---
Subjective Subjective/Hospital Course Pt previously seen in my clinic for R heel wound. Presented to ED presumably because of appearance and concern for worsening infection. Pt very poor historian and doesn't know where he lives. Objective Vitals/I&O Date Time Temp Pulse Resp B/P (MAP) Pulse Ox O2 Delivery O2 Flow Rate FiO2 03/29/17 08:46 98.1 83 18 121/76 (91) 96 03/29/17 06:23 74 16 126/69 (88) 93 Nasal Cannula 2.00 03/29/17 03:00 82 16 110/57 (74) 94 Nasal Cannula 2.00 03/29/17 00:09 70 18 113/63 (80) 93 Nasal Cannula 2.00 03/28/17 21:00 86 20 126/62 (83) 96 03/28/17 18:00 88 17 144/53 (83) 95 Nasal Cannula 2.00 03/28/17 16:00 64 14 121/55 (77) 90 Nasal Cannula 2.00 03/28/17 16:00 82 16 126/72 (90) 100 Nasal Cannula 2.00 03/28/17 15:53 73 17 138/65 (89) 89 Room Air 03/28/17 12:36 98.7 90 15 121/68 (85) 90 03/29/17 03/29/17 03/29/17 07:00 15:00 23:00 Intake Total 200 ml 200 ml Balance 200 ml 200 ml Physical Exam R LE with heel cellulitis Palpable DP pulse. R LE ulceration over most of calcaneus Laboratory Laboratory Tests Test 03/28/17 14:25 03/29/17 07:27 White Blood Count 14.9 11.9 Red Blood Count 5.39 4.98 Hemoglobin 14.5 13.5 Hematocrit 45.4 41.4 Mean Corpuscular Volume 84.2 83.2 Mean Corpuscular Hemoglobin 26.9 27.2 Mean Corpuscular Hemoglobin Concent 31.9 32.7 Red Cell Distribution Width 17.1 17.1 Platelet Count 372 333 Mean Platelet Volume 8.0 8.3 Neutrophils (%) (Auto) 64.3 68.4 Lymphocytes (%) (Auto) 26.7 21.0 Monocytes (%) (Auto) 5.6 6.1 Eosinophils (%) (Auto) 2.0 2.1 Basophils (%) (Auto) 1.4 2.4 Neutrophils # (Auto) 9.6 8.2 Lymphocytes # (Auto) 4.0 2.5 Monocytes # (Auto) 0.8 0.7 Eosinophils # (Auto) 0.3 0.3 Basophils # (Auto) 0.2 0.3 CBC Comment AUTO DIFF AUTO DIFF Differential Comment AUTO DIFF CONFIRMED Toxic Granulation 1+ Toxic Vacuolation PRESENT Platelet Estimate NORMAL Platelet Morphology Comment NORMAL Basophilic Stippling FAINT Spherocytes 1+ Erythrocyte Sedimentation Rate 32 Prothrombin Time 10.5 Prothromb Time International Ratio 1.0 Activated Partial Thromboplast Time 28.2 Blood Urea Nitrogen 21 19 Creatinine 1.39 1.39 Random Glucose 90 113 Total Protein 7.6 Albumin 3.2 Calcium Level 9.2 9.2 Alkaline Phosphatase 81 Aspartate Amino Transf (AST/SGOT) 12 Alanine Aminotransferase (ALT/SGPT) 17 Total Bilirubin 0.3 Sodium Level 138 138 Potassium Level 4.9 4.6 Chloride Level 99 100 Carbon Dioxide Level 32.3 30.8 Anion Gap 7 7 Estimat Glomerular Filtration Rate 51 51 C-Reactive Protein 1.84 Imaging Last 48 hours Impressions Foot X-Ray 03/28/17 0000 Signed Impressions: Service Date/Time: Tuesday, March 28, 2017 13:37 - CONCLUSION: 1. Ulceration of the soft tissues of the heel. Soft tissue swelling right foot. Remote fracture distal fifth metatarsal. Elroy Contreras MD Assessment and Plan Plan cellulitis and ulceration normal perfusion 1. IV antibiotics as you are doing 2. Heel protection / wound care 3. Podiatry consult 4. May require major amputation 5. No revasc needed given palpable DP Will follow Jairo Grider MD FACS [employer] forestry fire aid [facility] - Heart and Vascular Surgery at [facility] [phone] Jairo Grider MD Mar 29, 2017 10:22
--- NOTE | 2017-03-29 16:11 | PD.CONS ---
History of Present Illness Service Podiatry Consult Requested By ED Reason for Consult R heel wound Primary Care Physician Leobardo Velez M.D. Diagnoses: History of Present Illness Patient states he has had wound R plantar heel for a long time. He is uncertain to age of the wound and did not know who his vascular doctor was when asked. He also did not know what procedures had been performed on him. He was originally brought to podiatry clinic by his facility and Dr Rodriguez noted foul odor and necrotic tissue to wound and sent patient to ED to be admitted for IV antibiotics and workup for possible osteomyelitis. Past Family Social History Allergies: Coded Allergies: No Known Allergies (Verified Allergy, Unknown, 03/28/17) Physical Exam Vital Signs Vital Signs Date Time Temp Pulse Resp B/P (MAP) Pulse Ox O2 Delivery O2 Flow Rate FiO2 03/29/17 12:27 98.3 88 18 116/76 (89) 97 03/29/17 08:46 98.1 83 18 121/76 (91) 96 03/29/17 06:23 74 16 126/69 (88) 93 Nasal Cannula 2.00 03/29/17 03:00 82 16 110/57 (74) 94 Nasal Cannula 2.00 03/29/17 00:09 70 18 113/63 (80) 93 Nasal Cannula 2.00 03/28/17 21:00 86 20 126/62 (83) 96 03/28/17 18:00 88 17 144/53 (83) 95 Nasal Cannula 2.00 Physical Exam Right heel with large wound with necrotic fatty tissue. Previous eschar has been debrided. Mild erythema to tissue around wound. No serge purulence noted. No probing to bone noted at this time. Laboratory Laboratory Tests Test 03/29/17 07:27 White Blood Count 11.9 Red Blood Count 4.98 Hemoglobin 13.5 Hematocrit 41.4 Mean Corpuscular Volume 83.2 Mean Corpuscular Hemoglobin 27.2 Mean Corpuscular Hemoglobin Concent 32.7 Red Cell Distribution Width 17.1 Platelet Count 333 Mean Platelet Volume 8.3 Neutrophils (%) (Auto) 68.4 Lymphocytes (%) (Auto) 21.0 Monocytes (%) (Auto) 6.1 Eosinophils (%) (Auto) 2.1 Basophils (%) (Auto) 2.4 Neutrophils # (Auto) 8.2 Lymphocytes # (Auto) 2.5 Monocytes # (Auto) 0.7 Eosinophils # (Auto) 0.3 Basophils # (Auto) 0.3 CBC Comment AUTO DIFF Differential Total Cells Counted 100 Neutrophils % (Manual) 73 Band Neutrophils % 3 Lymphocytes % 16 Monocytes % 6 Eosinophils % 1 Neutrophils # (Manual) 9.2 Myelocytes 1 Differential Comment FINAL DIFF MANUAL Platelet Estimate NORMAL Platelet Morphology Comment NORMAL Red Cell Morphology Comment NORMAL Blood Urea Nitrogen 19 Creatinine 1.39 Random Glucose 113 Calcium Level 9.2 Sodium Level 138 Potassium Level 4.6 Chloride Level 100 Carbon Dioxide Level 30.8 Anion Gap 7 Estimat Glomerular Filtration Rate 51 Result Diagram: 03/29/1727 03/29/17726 Imaging Last 72 hours Impressions Skull X-Ray 03/29/17 0000 Signed Impressions: Service Date/Time: Wednesday, March 29, 2017 16:28 - CONCLUSION: Negative for radiopaque foreign bodies. As the wire wrapped about she had an not felt to be contraindication to MRI. Yuan Recinos MD FACR Chest X-Ray 03/29/17 0000 Signed Impressions: Service Date/Time: Wednesday, March 29, 2017 16:25 - CONCLUSION: Negative chest. No radiopaque foreign bodies. Yuan Recinos MD FACR Ankle MRI 03/29/17 0000 Signed Impressions: Service Date/Time: Wednesday, March 29, 2017 16:48 - CONCLUSION: 1. Cellulitis in the right posterior calcaneal region with adjacent marrow edema and minimal marrow enhancement most characteristic of a very early calcaneal osteomyelitis posteriorly. Elroy Contreras MD Foot X-Ray 03/28/17 0000 Signed Impressions: Service Date/Time: Tuesday, March 28, 2017 13:37 - CONCLUSION: 1. Ulceration of the soft tissues of the heel. Soft tissue swelling right foot. Remote fracture distal fifth metatarsal. Elroy Contreras MD Assessment and Plan Assessment and Plan Ulcer Right heel MRI result will be used to guide treatment Ordered santyl daily per nursing in meantime. Will discuss debridement vs bone biopsy and medical treatment with patient. Radha Barakat DPM Mar 29, 2017 16:11
--- NOTE | 2017-03-29 16:41 | RADRPT ---
EXAM DATE/TIME: 03/29/2017 16:25 [facility] COMPARISON: CHEST SINGLE AP, April 07, 2016, 10:18. INDICATIONS : Clear for mri MEDICAL HISTORY : Congestive heart failure. Hypertension Diabetes mellitus type II. SURGICAL HISTORY : None. ENCOUNTER: Initial ACUITY: 1 day PAIN SCORE: 0/10 LOCATION: Bilateral chest FINDINGS: A single view of the chest demonstrates the lungs to be symmetrically aerated without evidence of mas s, infiltrate or effusion. The cardiomediastinal contours are unremarkable. Osseous structures are intact. CONCLUSION: Negative chest. No radiopaque foreign bodies. Yuan Recinos MD FACR on March 29, 2017 at 16:39 Board Certified Radiologist. This report was verified electronically.
--- NOTE | 2017-03-29 16:42 | RADRPT ---
EXAM DATE/TIME: 03/29/2017 16:28 [place] Corrected on: March 31, 2017; [facility] COMPARISON: No previous studies available for comparison. INDICATIONS : MRI clearance, possible aneurysm clip. MEDICAL HISTORY : None. SURGICAL HISTORY : None. ENCOUNTER: Initial ACUITY: 1 day PAIN SCORE: 0/10 LOCATION: Bilateral skull. FINDINGS: A two view examination of the skull demonstrates no evidence of fracture. The pituitary fossa is nor mal in configuration. No radiopaque foreign bodies are seen. CONCLUSION: Negative for radiopaque foreign bodies. As the wire wrap is seen about the angle of the mandible not felt to be contraindication to MRI. Yuan Recinos MD FACR on March 29, 2017 at 16:39 Board Certified Radiologist. This report was verified electronically. Yuan Recinos MD FACR on March 31, 2017 at 9:17 Board Certified Radiologist. This report was verified electronically.
[2017-03-29] MEDS ORDERED: GADODIAMIDE PF 287 MG/ML 5 ML VIAL (for RAD MRI) IVCONTRAST ONE (17:35)
[2017-03-29] MEDS ORDERED: PHARMACY ORDERED LAB ONE (17:45)
[2017-03-29] MEDS: MIRTAZAPINE 15 MG TAB PO SCH (18:11)
--- NOTE | 2017-03-29 18:53 | RADRPT ---
EXAM DATE/TIME: 03/29/2017 16:48 [facility] COMPARISON: No previous studies available for comparison. INDICATIONS : Osteomyelitis. Right heel ulcer. CONTRAST: 25 cc Omniscan (gadodiamide) IV MEDICAL HISTORY : Hypertension. Diabetes mellitus type 2. SURGICAL HISTORY : Fusion, lumbar. ORIF left hip. ENCOUNTER: Subsequent ACUITY: 1 day PAIN SCORE: 0/10 LOCATION: Right heel. TECHNIQUE: Multiplanar, multisequence MRI examination was performed without contrast and after the intravenous a dministration of gadolinium. FINDINGS: There is a soft tissue ulceration and extensive edema of the posterior right calcaneal region. There is a small amount of marrow edema in the posterior calcaneus. This does demonstrate some minimal heavenly ow enhancement postcontrast most suggestive of an early osteomyelitis. The Achilles and plantar fascial insertions are intact. No other abnormal marrow edema in the ankle. No significant ankle joint effusion. No acute tendon or ligamentous abnormalities. CONCLUSION: 1. Cellulitis in the right posterior calcaneal region with adjacent marrow edema and minimal marrow e nhancement most characteristic of a very early calcaneal osteomyelitis posteriorly. Elroy Contreras MD on March 29, 2017 at 18:46 Board Certified Radiologist. This report was verified electronically.
[2017-03-30] VITALS (9 sets, daily range): BP systolic 109–142; BP diastolic 56–78; PULSE 73–93; RESP 18–20; TEMP 97.8–98.6; O2SAT 91–96
[2017-03-30] MEDS: PIPERACIL-TAZO 4.5 GM PREMIX 100 ML IV SCH ×4 (02:19→21:34)
[2017-03-30] MEDS: VANCOMYCIN 1 GM/200 ML PREMIX IV SCH ×2 (05:27→17:33)
[2017-03-30] MEDS: HEPARIN SODIUM - SQ 10,000 UNITS/ML VIAL SQ SCH ×3 (05:27→21:34)
[2017-03-30] MEDS: INSULIN ASPART SUPPLEMENTAL SCALE SQ SCH ×4 (08:00→21:52)
[2017-03-30] MEDS: LISINOPRIL 10 MG TAB PO SCH (08:48)
[2017-03-30] MEDS: LACTOBACILLUS ACIDOPHILUS TAB PO SCH ×3 (08:48→17:16)
[2017-03-30] MEDS: DONEPEZIL HCL 5 MG TAB PO SCH (08:48)
[2017-03-30] MEDS: SODIUM CHLORIDE 0.9% FLUSH 10 ML FLUSH IV FLUSH SCH ×2 (08:49→21:35)
[2017-03-30] MEDS: PRAVASTATIN SOD 40 MG TAB PO SCH (08:49)
[2017-03-30] MEDS: GABAPENTIN 100 MG CAP PO SCH ×2 (08:49→21:34)
--- NOTE | 2017-03-30 13:29 | HHI.PR ---
Subjective Remarks patient awake and alert, denies any foot pain ff all commands no fever or chills Objective Vitals Vital Signs Date Time Temp Pulse Resp B/P (MAP) Pulse Ox O2 Delivery O2 Flow Rate FiO2 03/30/17 12:27 98.1 93 20 123/65 (84) 91 03/30/17 08:42 97.9 87 20 142/76 (98) 94 03/30/17 05:27 98.0 87 18 109/59 (76) 94 03/30/17 00:23 98.1 90 18 141/72 (95) 96 03/29/17 20:05 100 03/29/17 20:00 97.5 98 18 138/80 (99) 94 I/O 03/29/17 03/29/17 03/29/17 03/30/17 03/30/17 03/30/17 07:00 15:00 23:00 07:00 15:00 23:00 Intake Total 200 ml 200 ml 100 ml 300 ml Balance 200 ml 200 ml 100 ml 300 ml Intake IV Total 200 ml 200 ml 100 ml 300 ml # Voids 1 2 # Bowel Movements 1 Result Diagram: 03/29/17 0703/29/17 0727 Imaging Last Impressions Skull X-Ray 03/29/17 0000 Signed Impressions: Service Date/Time: Wednesday, March 29, 2017 16:28 - CONCLUSION: Negative for radiopaque foreign bodies. As the wire wrapped about she had an not felt to be contraindication to MRI. Yuan Recinos MD FACR Chest X-Ray 03/29/17 0000 Signed Impressions: Service Date/Time: Wednesday, March 29, 2017 16:25 - CONCLUSION: Negative chest. No radiopaque foreign bodies. Yuan Recinos MD FACR Ankle MRI 03/29/17 0000 Signed Impressions: Service Date/Time: Wednesday, March 29, 2017 16:48 - CONCLUSION: 1. Cellulitis in the right posterior calcaneal region with adjacent marrow edema and minimal marrow enhancement most characteristic of a very early calcaneal osteomyelitis posteriorly. Elroy Contreras MD Foot X-Ray 03/28/17 0000 Signed Impressions: Service Date/Time: Tuesday, March 28, 2017 13:37 - CONCLUSION: 1. Ulceration of the soft tissues of the heel. Soft tissue swelling right foot. Remote fracture distal fifth metatarsal. Elroy Contreras MD Objective Remarks awake and alert, oriented to per, ff all commands anicteric luings- no rales no nuchal rigdity regular rhythm abdomensoft, good bowel sounds, nontender right foot- heel with about 4 6 circumscribed superficial ulcer with supeficial necrosis with surrounding erythema and mild swelling ++ DP grossly no sensory deficits moves all extremities. lifts both LE and feet up with no difficulty or limitation in range of motion A/P Problem List: (1) Heel ulcer ICD Code: L97.409 - Non-pressure chronic ulcer of unspecified heel and midfoot with unspecified severity Status: Acute (2) Type 2 diabetes mellitus ICD Code: E11.9 - Type 2 diabetes mellitus without complications Status: Chronic (3) Dementia ICD Code: F03.90 - Unspecified dementia without behavioral disturbance Status: Chronic Assessment and Plan Mr. Chavez is a 67 y/o male with a history of dementia, CHF, hypertension, and type 2 diabetes mellitus who was sent by his manager channel Dr. Paz for evaluation of a chronic right heel ulcer. Nonhealing wound right heel- with some superficial skin necrosis with evidence of osteomyelitis on MRI - Podiatry ff- will likely need debridement. - per Podiatry notes- considering ? bone biopsy - Antibiotics: Zosyn and Vancomycin IV Type 2 Diabetes Mellitus - Hold Metformin - Accuchecks ac and hs with low dose Novolog SS coverage - hypoglycemia treatment protocol - monitor trends in blood glucose and adjust treatment as indicated Dementia - resume home Aricept CKI likely with underlying DM nephropathy - ff BMP on antibitoics - non oliguric DVT prophylaxis - heparin 5000 units subq q8h PT/OT consult Problem Qualifiers (1) Type 2 diabetes mellitus: Frankie Langley MD Mar 30, 2017 13:29
[2017-03-30] MEDS: MIRTAZAPINE 15 MG TAB PO SCH (14:26)
[2017-03-30] MEDS: COLLAGENASE OINT 30 GM TUBE TOPICAL SCH (14:27)
--- NOTE | 2017-03-30 20:16 | PD.POD ---
Subjective Podiatric Problems Right heel ulcer. Discuss MRI results Past Med/Surg/Social History Social History Smoking Status: Unknown If Ever Smoked Objective Vital Signs Vital Signs Date Time Temp Pulse Resp B/P (MAP) Pulse Ox O2 Delivery O2 Flow Rate FiO2 03/30/17 18:06 81 03/30/17 17:16 97.8 87 20 137/78 (97) 92 03/30/17 17:16 97.8 87 20 137/78 (97) 92 03/30/17 12:27 98.1 93 20 123/65 (84) 91 03/30/17 08:42 97.9 87 20 142/76 (98) 94 03/30/17 08:00 73 03/30/17 05:27 98.0 87 18 109/59 (76) 94 03/30/17 00:23 98.1 90 18 141/72 (95) 96 Coded Allergies: No Known Allergies (Verified Allergy, Unknown, 03/28/17) Other Results Last 72 hours Impressions Skull X-Ray 03/29/17 0000 Signed Impressions: Service Date/Time: Wednesday, March 29, 2017 16:28 - CONCLUSION: Negative for radiopaque foreign bodies. As the wire wrapped about she had an not felt to be contraindication to MRI. Yuan Recinos MD FACR Chest X-Ray 03/29/17 0000 Signed Impressions: Service Date/Time: Wednesday, March 29, 2017 16:25 - CONCLUSION: Negative chest. No radiopaque foreign bodies. Yuan Recinos MD FACR Ankle MRI 03/29/17 0000 Signed Impressions: Service Date/Time: Wednesday, March 29, 2017 16:48 - CONCLUSION: 1. Cellulitis in the right posterior calcaneal region with adjacent marrow edema and minimal marrow enhancement most characteristic of a very early calcaneal osteomyelitis posteriorly. Elroy Contreras MD Foot X-Ray 03/28/17 0000 Signed Impressions: Service Date/Time: Tuesday, March 28, 2017 13:37 - CONCLUSION: 1. Ulceration of the soft tissues of the heel. Soft tissue swelling right foot. Remote fracture distal fifth metatarsal. Elroy Contreras MD Exam-Podiatry Remarks Unchanged Assessment & Plan A/P Right heel ulcer, possible osteomyelitis Patient is agreeable to debridement of ulcer with bone biopsy of calcaneus Right foot NPO after breakfast tomorrow. Plan to OR tomorrow Radha Adams DPM Mar 30, 2017 20:16
[2017-03-31] VITALS (8 sets, daily range): BP systolic 106–158; BP diastolic 67–92; PULSE 75–97; RESP 18–20; TEMP 98–99; O2SAT 92–96
[2017-03-31] MEDS: PIPERACIL-TAZO 4.5 GM PREMIX 100 ML IV SCH ×3 (04:46→15:05)
[2017-03-31] MEDS: VANCOMYCIN 1 GM/200 ML PREMIX IV SCH (05:28)
[2017-03-31] MEDS: HEPARIN SODIUM - SQ 10,000 UNITS/ML VIAL SQ SCH ×3 (05:28→22:32)
[2017-03-31] MEDS ORDERED: PHARMACY ORDERED LAB ONE ×2 (05:45→23:45)
[2017-03-31] MEDS: INSULIN ASPART SUPPLEMENTAL SCALE SQ SCH ×4 (08:02→22:34)
[2017-03-31] MEDS: LISINOPRIL 10 MG TAB PO SCH (08:04)
[2017-03-31] MEDS: DONEPEZIL HCL 5 MG TAB PO SCH (08:04)
[2017-03-31] MEDS: LACTOBACILLUS ACIDOPHILUS TAB PO SCH ×3 (08:04→18:25)
[2017-03-31] MEDS: SODIUM CHLORIDE 0.9% FLUSH 10 ML FLUSH IV FLUSH SCH ×2 (08:04→22:31)
[2017-03-31] MEDS: GABAPENTIN 100 MG CAP PO SCH ×2 (08:04→22:31)
[2017-03-31] MEDS: PRAVASTATIN SOD 40 MG TAB PO SCH (08:04)
[2017-03-31 08:51] LABS: CREATININE 1.41 MG/DL (0.60-1.30)
[2017-03-31] MEDS ORDERED: PNEUMOCOCCAL POLYVALENT INJ 25 MCG/0.5 ML SYR IM ONE (10:00)
[2017-03-31] MEDS ORDERED: INFLUENZA VIRUS VACCINE (QUADRIVALENT) 0.5 ML SYR IM ONE (10:00)
[2017-03-31] MEDS: COLLAGENASE OINT 30 GM TUBE TOPICAL SCH (10:35)
--- NOTE | 2017-03-31 10:39 | HHI.PR ---
Subjective Remarks awake and alert, no foot pain complains no nausea or vomiting Objective Vitals Vital Signs Date Time Temp Pulse Resp B/P (MAP) Pulse Ox O2 Delivery O2 Flow Rate FiO2 03/31/17 10:25 94 03/31/17 08:24 99.0 97 20 158/92 (114) 92 03/31/17 05:00 98.5 91 18 122/67 (85) 94 03/31/17 01:12 98.0 92 18 106/74 (85) 94 03/31/17 00:25 80 03/30/17 21:15 98.6 91 18 120/56 (77) 94 03/30/17 20:00 90 03/30/17 18:06 81 03/30/17 17:16 97.8 87 20 137/78 (97) 92 03/30/17 17:16 97.8 87 20 137/78 (97) 92 03/30/17 12:27 98.1 93 20 123/65 (84) 91 I/O 03/30/17 03/30/17 03/30/17 03/31/17 03/31/17 03/31/17 07:00 15:00 23:00 07:00 15:00 23:00 Intake Total 300 ml 660 ml Balance 300 ml 660 ml Intake Oral 660 ml IV Total 300 ml # Voids 2 3 2 # Bowel Movements 1 Result Diagram: 03/29/17 0727 03/31/17 0712 Imaging Last Impressions Skull X-Ray 03/29/17 0000 Signed Impressions: Service Date/Time: Wednesday, March 29, 2017 16:28 - CONCLUSION: Negative for radiopaque foreign bodies. As the wire wrap is seen about the angle of the mandible not felt to be contraindication to MRI. Yuan Recinos MD FACR Chest X-Ray 03/29/17 0000 Signed Impressions: Service Date/Time: Wednesday, March 29, 2017 16:25 - CONCLUSION: Negative chest. No radiopaque foreign bodies. Yuan Recinos MD FACR Ankle MRI 03/29/17 0000 Signed Impressions: Service Date/Time: Wednesday, March 29, 2017 16:48 - CONCLUSION: 1. Cellulitis in the right posterior calcaneal region with adjacent marrow edema and minimal marrow enhancement most characteristic of a very early calcaneal osteomyelitis posteriorly. Elroy Contreras MD Foot X-Ray 03/28/17 0000 Signed Impressions: Service Date/Time: Tuesday, March 28, 2017 13:37 - CONCLUSION: 1. Ulceration of the soft tissues of the heel. Soft tissue swelling right foot. Remote fracture distal fifth metatarsal. Elroy Contreras MD Objective Remarks awake and alert, oriented to per, ff all commands anicteric lungs- no rales regular rhythm abdomen globularly soft, good bowel sounds, nontender right foot- heel with about 4 6 circumscribed superficial ulcer with supeficial necrosis with surrounding erythema, non tender ++ DP grossly no sensory deficits moves all extremities. lifts both LE and feet up with no difficulty or limitation in range of motion A/P Problem List: (1) Heel ulcer ICD Code: L97.409 - Non-pressure chronic ulcer of unspecified heel and midfoot with unspecified severity Status: Acute (2) Type 2 diabetes mellitus ICD Code: E11.9 - Type 2 diabetes mellitus without complications Status: Chronic (3) Dementia ICD Code: F03.90 - Unspecified dementia without behavioral disturbance Status: Chronic Assessment and Plan Mr. Chavez is a 67 y/o male with a history of dementia, CHF, hypertension, and type 2 diabetes mellitus who was sent by his woodworking bench carpenter Dr. Paz for evaluation of a chronic right heel ulcer. Nonhealing wound right heel- with superficial skin necrosis with evidence of osteomyelitis on MRI - Podiatry ff- for debridement and bone biopsy today - will get ID consult involved early - Antibiotics: Zosyn and Vancomycin IV Type 2 Diabetes Mellitus - Hold Metformin with KI - Accuchecks ac and hs with low dose Novolog SS coverage - hypoglycemia treatment protocol - monitor trends in blood glucose and adjust treatment as indicated Dementia- a xox 3 - explained to him the plan for today - resume home Aricept CKI- likely from DM nephropathy -non oliguric monitor BMP DVT prophylaxis - heparin 5000 units subq q8h- hold for procedure PT/OT consulted Problem Qualifiers (1) Type 2 diabetes mellitus: Frankie Langley MD Mar 31, 2017 10:39
[2017-03-31] MEDS: MIRTAZAPINE 15 MG TAB PO SCH (15:05)
[2017-03-31] MEDS ORDERED: BUPIVACAINE HCL PF 0.25% 30 ML VIAL ONE (16:42)
--- NOTE | 2017-03-31 17:56 | PD.POD ---
Subjective Podiatric Problems Right heel ulcer with possible osteomyelitis of calcaneus Past Med/Surg/Social History Social History Smoking Status: Unknown If Ever Smoked Objective Vital Signs Vital Signs Date Time Temp Pulse Resp B/P (MAP) Pulse Ox O2 Delivery O2 Flow Rate FiO2 03/31/17 15:57 75 03/31/17 12:35 98.8 87 18 133/75 (94) 96 03/31/17 10:25 94 03/31/17 08:24 99.0 97 20 158/92 (114) 92 03/31/17 05:00 98.5 91 18 122/67 (85) 94 03/31/17 01:12 98.0 92 18 106/74 (85) 94 03/31/17 00:25 80 03/30/17 21:15 98.6 91 18 120/56 (77) 94 03/30/17 20:00 90 03/30/17 18:06 81 Coded Allergies: No Known Allergies (Verified Allergy, Unknown, 03/28/17) Exam-Podiatry Remarks unchanged. Assessment & Plan A/P Right heel ulcer, possible osteomyelitis Surgery canceled for wound debridement/bone biopsy Patient is not lucid today and needs to have next of kin contacted before anything is done. Nursing please attempt to get info from Lynne Turner, if available. NO surgical intervention will be performed without consent from next of kin Continue local wound care and offloading of right heel in the meantime. Recommend continuing IV antibiotics. Radha Barakat DPM Mar 31, 2017 17:56
--- NOTE | 2017-03-31 19:33 | PD.ID.CON ---
History of Present Illness Service ID Consult Requested By Dr Langley Reason for Consult heel osteomyelitis Primary Care Physician Leobardo Velez M.D. Diagnoses: History of Present Illness 67 y o male - unbale to provide any meaningful history. He is not aware of his diabetes. He told me that he does not have it. He presented with R heel wound that he had for a long time. He is uncertain to age of the wound and did not know who his vascular doctor was when asked. He also did not know what procedures had been performed on him. He was originally brought to podiatry clinic by his facility and Dr Rodriguez noted foul odor and necrotic tissue to wound and sent patient to ED to be admitted for IV antibiotics and workup for possible osteomyelitis. MRI showed bone edema suspicious for mild case of oste He was started on broad spectrum abx and bone bx is planned He has no fever and presented with leukocytosis of 14 K which improved down to 11 K Past Family Social History Allergies: Coded Allergies: No Known Allergies (Verified Allergy, Unknown, 03/28/17) Past Medical History Type 2 DM Hypertension CHF Right heel nonhealing wound Dementia . Past Surgical History Unable to obtain due to patient confusion - oriented only to self Active Ordered Medications Medications where reviewed in EMR Antibiotics Include: zosyn bensono Family History KELLI Social History KELLI Physical Exam Vital Signs Vital Signs Date Time Temp Pulse Resp B/P (MAP) Pulse Ox O2 Delivery O2 Flow Rate FiO2 03/31/17 15:57 75 03/31/17 12:35 98.8 87 18 133/75 (94) 96 03/31/17 10:25 94 03/31/17 08:24 99.0 97 20 158/92 (114) 92 03/31/17 05:00 98.5 91 18 122/67 (85) 94 03/31/17 01:12 98.0 92 18 106/74 (85) 94 03/31/17 00:25 80 03/30/17 21:15 98.6 91 18 120/56 (77) 94 03/30/17 20:00 90 Physical Exam CONSTITUTIONAL/GENERAL: This is a morbidly obese patient, in no apparent distress. TUBES/LINES/DRAINS: SKIN: No jaundice, rashes, or lesions. Skin temperature appropriate. Not diaphoretic. HEAD: Atraumatic. Normocephalic. EYES: Pupils equal and round and reactive. Extraocular motions intact. No scleral icterus. No injection or drainage. Fundi not examined. ENT: Hearing grossly normal. Nose without bleeding or purulent drainage. Throat without visible erythema, exudates, masses, or lesions. NECK: Trachea midline. Supple, nontender. No palpable thyroid enlargement or nodularity. CARDIOVASCULAR: Regular rate and rhythm without murmurs, gallops, or rubs. No JVD. Peripheral pulses symmetric. RESPIRATORY/CHEST: Symmetric, unlabored respirations. Clear to auscultation. Breath sounds equal bilaterally. No wheezes, rales, or rhonchi. GASTROINTESTINAL: Abdomen soft, non-tender, nondistended. No hepato-splenomegaly , or palpable masses. No guarding. Bowel sounds present. GENITOURINARY: Without palpable bladder distension. Clement catheter in place. MUSCULOSKELETAL: Extremities without clubbing, cyanosis, + chronic appearing edemaand chronic BLE discoloration Large eschar on R heel covering unstagible ulcer surrounded by mild /resolving appearing erythema No foul smell . No joint tenderness or effusion noted. No calf tenderness. No mottling or clubbing. B/l excellent D...pedis pulses' LYMPHATICS: No palpable cervical or supraclavicular adenopathy. NEUROLOGICAL: Awake and alert. Confused Motor and sensory grossly within normal limits. Follows commands. Clear speech, but quite incoherent . Moves all extremities. PSYCHIATRIC: No obvious anxiety/depression. no apparent hallucinations or other psychotic thought process. Laboratory Laboratory Tests Test 03/31/17 05:30 03/31/17 07:12 Vancomycin Level Trough 21.4 Creatinine 1.41 Estimat Glomerular Filtration Rate 50 Result Diagram: 03/29/17 0727 03/31/17 0712 Imaging Last Impressions Skull X-Ray 03/29/17 0000 Signed Impressions: Service Date/Time: Wednesday, March 29, 2017 16:28 - CONCLUSION: Negative for radiopaque foreign bodies. As the wire wrap is seen about the angle of the mandible not felt to be contraindication to MRI. Yuan Recinos MD FACR Chest X-Ray 03/29/17 0000 Signed Impressions: Service Date/Time: Wednesday, March 29, 2017 16:25 - CONCLUSION: Negative chest. No radiopaque foreign bodies. Yuan Recinos MD FACR Ankle MRI 03/29/17 0000 Signed Impressions: Service Date/Time: Wednesday, March 29, 2017 16:48 - CONCLUSION: 1. Cellulitis in the right posterior calcaneal region with adjacent marrow edema and minimal marrow enhancement most characteristic of a very early calcaneal osteomyelitis posteriorly. Elroy Contreras MD Foot X-Ray 03/28/17 0000 Signed Impressions: Service Date/Time: Tuesday, March 28, 2017 13:37 - CONCLUSION: 1. Ulceration of the soft tissues of the heel. Soft tissue swelling right foot. Remote fracture distal fifth metatarsal. Elroy Contreras MD Assessment and Plan Assessment and Plan R heel diabetic foot infection with suspected osteomyelitis - gangrenous changes present on the heel This is a limb threatening infection - conbt zosyn, vancomycin - will follow cultures Jennifer Chaves MD Mar 31, 2017 19:33
[2017-03-31] MEDS ORDERED: Vancomycin Consult Pharmacy 1 EA OTHER SCH (23:30)
[2017-04-01] VITALS (9 sets, daily range): BP systolic 125–162; BP diastolic 57–82; PULSE 68–90; RESP 18–19; TEMP 95.8–98.8; O2SAT 92–96
[2017-04-01] MEDS: PIPERACIL-TAZO 3.375 GM PREMIX 50 ML IV SCH ×5 (00:48→23:10)
[2017-04-01] MEDS: HEPARIN SODIUM - SQ 10,000 UNITS/ML VIAL SQ SCH ×3 (06:16→21:32)
[2017-04-01] MEDS: VANCOMYCIN INJ 1,750 MG in SODIUM CHLORID 0.9% 500 ML INJ 500 ML IV SCH (07:04)
[2017-04-01] MEDS: INSULIN ASPART SUPPLEMENTAL SCALE SQ SCH ×4 (08:00→21:00)
[2017-04-01] MEDS: LACTOBACILLUS ACIDOPHILUS TAB PO SCH ×3 (08:03→17:33)
[2017-04-01] MEDS: LISINOPRIL 10 MG TAB PO SCH (08:03)
[2017-04-01] MEDS: PRAVASTATIN SOD 40 MG TAB PO SCH (08:03)
[2017-04-01] MEDS: DONEPEZIL HCL 5 MG TAB PO SCH (08:03)
[2017-04-01] MEDS: SODIUM CHLORIDE 0.9% FLUSH 10 ML FLUSH IV FLUSH SCH ×2 (08:04→21:00)
[2017-04-01] MEDS: GABAPENTIN 100 MG CAP PO SCH ×2 (08:04→21:31)
[2017-04-01] MEDS: COLLAGENASE OINT 30 GM TUBE TOPICAL SCH (08:05)
--- NOTE | 2017-04-01 09:37 | HHI.PR ---
Subjective Remarks no complains of pfoot pain no nausea or vomiting voiding well Objective Vitals Vital Signs Date Time Temp Pulse Resp B/P (MAP) Pulse Ox O2 Delivery O2 Flow Rate FiO2 04/01/17 08:00 98.7 77 18 150/79 (102) 95 04/01/17 06:16 95.8 78 18 162/80 (107) 95 04/01/17 04:45 89 04/01/17 01:14 97.6 84 18 150/82 (104) 92 04/01/17 00:03 85 03/31/17 21:12 98.1 90 18 130/71 (90) 93 03/31/17 15:57 75 03/31/17 12:35 98.8 87 18 133/75 (94) 96 03/31/17 10:25 94 I/O 03/31/17 03/31/17 03/31/17 04/01/17 04/01/17 04/01/17 07:00 15:00 23:00 07:00 15:00 23:00 # Voids 2 4 # Bowel Movements 1 2 2 Result Diagram: 03/29/17 0727 03/31/17 0712 Imaging Last Impressions Skull X-Ray 03/29/17 0000 Signed Impressions: Service Date/Time: Wednesday, March 29, 2017 16:28 - CONCLUSION: Negative for radiopaque foreign bodies. As the wire wrap is seen about the angle of the mandible not felt to be contraindication to MRI. Yuan Recinos MD FACR Chest X-Ray 03/29/17 0000 Signed Impressions: Service Date/Time: Wednesday, March 29, 2017 16:25 - CONCLUSION: Negative chest. No radiopaque foreign bodies. Yuan Recinos MD FACR Ankle MRI 03/29/17 0000 Signed Impressions: Service Date/Time: Wednesday, March 29, 2017 16:48 - CONCLUSION: 1. Cellulitis in the right posterior calcaneal region with adjacent marrow edema and minimal marrow enhancement most characteristic of a very early calcaneal osteomyelitis posteriorly. Elroy Contreras MD Foot X-Ray 03/28/17 0000 Signed Impressions: Service Date/Time: Tuesday, March 28, 2017 13:37 - CONCLUSION: 1. Ulceration of the soft tissues of the heel. Soft tissue swelling right foot. Remote fracture distal fifth metatarsal. Elroy Contreras MD Objective Remarks awake and alert, oriented to person and place "[place]", ff all commands, speech clear anicteric lungs- no rales regular rhythm abdomen globularly soft, good bowel sounds, nontender right foot- heel with about 4 6 circumscribed superficial ulcer with superficial necrosis with surrounding erythema, non tender ++ DP grossly no sensory deficits moves all extremities. lifts both LE and feet up with no difficulty or limitation in range of motion A/P Problem List: (1) Heel ulcer ICD Code: L97.409 - Non-pressure chronic ulcer of unspecified heel and midfoot with unspecified severity Status: Acute (2) Type 2 diabetes mellitus ICD Code: E11.9 - Type 2 diabetes mellitus without complications Status: Chronic (3) Dementia ICD Code: F03.90 - Unspecified dementia without behavioral disturbance Status: Chronic Assessment and Plan Mr. Chavez is a 67 y/o male with a history of dementia, CHF, hypertension, and type 2 diabetes mellitus who was sent by his medical staff credentialing coordinator Dr. Paz for evaluation of a chronic right heel ulcer. Nonhealing wound right heel- with some superficial skin necrosis with suspected osteomyelitis on MRI - Podiatry ff- will likely need debridement. - per Podiatry notes- considering ? bone biopsy - Antibiotics: Zosyn and Vancomycin IV - appreciate ID ff along with us Type 2 Diabetes Mellitus- good readings - Hold Metformin with elevated creatinine - Accuchecks ac and hs with low dose Novolog SS coverage - hypoglycemia treatment protocol - monitor trends in blood glucose and adjust treatment as indicated Dementia - resume home Aricept CKI likely with underlying DM nephropathy - ff BMP on antibiotics - non oliguric DVT prophylaxis - heparin 5000 units subq q8h PT/OT consult Out of bed to chair -tid for all meals Problem Qualifiers (1) Type 2 diabetes mellitus: Frankie Langley MD Apr 01, 2017 09:37
--- NOTE | 2017-04-01 13:38 | HHI.IDPN ---
Subjective Subjective Remarks no complaints afebrile seems alert Antibiotics vancomycin zosyn Allergies: Coded Allergies: No Known Allergies (Verified Allergy, Unknown, 03/28/17) Objective . Vital Signs Date Time Temp Pulse Resp B/P (MAP) Pulse Ox O2 Delivery O2 Flow Rate FiO2 04/01/17 12:00 98.7 90 18 134/57 (82) 92 04/01/17 08:00 98.7 77 18 150/79 (102) 95 04/01/17 08:00 87 04/01/17 06:16 95.8 78 18 162/80 (107) 95 04/01/17 04:45 89 04/01/17 01:14 97.6 84 18 150/82 (104) 92 04/01/17 00:03 85 03/31/17 21:12 98.1 90 18 130/71 (90) 93 03/31/17 15:57 75 04/01/17 04/01/17 04/02/17 15:00 23:00 07:00 Intake Total 50 ml Balance 50 ml IV Total 50 ml . Laboratory Tests Test 03/31/17 07:12 Creatinine 1.41 MG/DL Estimat Glomerular Filtration Rate 50 ML/MIN Imaging Last Impressions Skull X-Ray 03/29/17 0000 Signed Impressions: Service Date/Time: Wednesday, March 29, 2017 16:28 - CONCLUSION: Negative for radiopaque foreign bodies. As the wire wrap is seen about the angle of the mandible not felt to be contraindication to MRI. Yuan Recinos MD FACR Chest X-Ray 03/29/17 0000 Signed Impressions: Service Date/Time: Wednesday, March 29, 2017 16:25 - CONCLUSION: Negative chest. No radiopaque foreign bodies. Yuan Recinos MD FACR Ankle MRI 03/29/17 0000 Signed Impressions: Service Date/Time: Wednesday, March 29, 2017 16:48 - CONCLUSION: 1. Cellulitis in the right posterior calcaneal region with adjacent marrow edema and minimal marrow enhancement most characteristic of a very early calcaneal osteomyelitis posteriorly. Elroy Contreras MD Foot X-Ray 03/28/17 0000 Signed Impressions: Service Date/Time: Tuesday, March 28, 2017 13:37 - CONCLUSION: 1. Ulceration of the soft tissues of the heel. Soft tissue swelling right foot. Remote fracture distal fifth metatarsal. Elroy Contreras MD Physical Exam CONSTITUTIONAL/GENERAL: This is a morbidly obese patient, in no apparent distress. TUBES/LINES/DRAINS: SKIN: No jaundice, rashes, or lesions. Skin temperature appropriate. Not diaphoretic. CARDIOVASCULAR: Regular rate and rhythm without murmurs, gallops, or rubs. No JVD. Peripheral pulses symmetric. RESPIRATORY/CHEST: Symmetric, unlabored respirations. Clear to auscultation. Breath sounds equal bilaterally. No wheezes, rales, or rhonchi. GASTROINTESTINAL: Abdomen soft, non-tender, nondistended. No hepato-splenomegaly , or palpable masses. No guarding. Bowel sounds present. GENITOURINARY: Without palpable bladder distension. Clement catheter in place. MUSCULOSKELETAL: Extremities without clubbing, cyanosis, + chronic appearing edemaand chronic BLE discoloration R foot with dressing in place, no ascending cellulitis/lymphangits No foul smell NEUROLOGICAL: Awake and alert. Confused Motor and sensory grossly within normal limits. Follows commands. Clear speech, but quite incoherent . Moves all extremities. PSYCHIATRIC: flat affect Assessment & Plan Remarks Assessment and Plan Assessment and Plan R heel diabetic foot infection with suspected osteomyelitis - gangrenous changes present on the heel This is a limb threatening infection - cont zosyn, vancomycin for now - awaiting for bone cultures willow obtained Final rec's per clx fu common lab (CBC, BMP) I will be off starting 04/04 thru 04/17 - other physicians are covering Jennifer Chaves MD Apr 01, 2017 13:38
--- NOTE | 2017-04-01 14:35 | HHI.PR ---
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
[2017-04-01 15:13] LABS: BICARBONATE 35.2 MEQ/L (21.0-32.0); BLOOD UREA NITROGEN 14 MG/DL (7-18); CALCIUM 8.6 MG/DL (8.5-10.1); CHLORIDE 100 MEQ/L (98-107); CREATININE 1.44 MG/DL (0.60-1.30); GLOMERULAR FILTRATION RATE 49 ML/MIN (>89); GLUCOSE,RANDOM 160 MG/DL (74-106); SODIUM (NA) 139 MEQ/L (136-145)
[2017-04-01] MEDS: MIRTAZAPINE 15 MG TAB PO SCH (17:33)
[2017-04-02] VITALS (11 sets, daily range): BP systolic 122–159; BP diastolic 61–81; PULSE 64–93; RESP 18–21; TEMP 97.8–98.6; O2SAT 94–97
[2017-04-02] MEDS: PIPERACIL-TAZO 3.375 GM PREMIX 50 ML IV SCH ×3 (06:27→17:26)
[2017-04-02] MEDS: VANCOMYCIN INJ 1,750 MG in SODIUM CHLORID 0.9% 500 ML INJ 500 ML IV SCH (06:27)
[2017-04-02] MEDS: HEPARIN SODIUM - SQ 10,000 UNITS/ML VIAL SQ SCH ×3 (06:28→22:17)
[2017-04-02] MEDS: INSULIN ASPART SUPPLEMENTAL SCALE SQ SCH ×4 (08:00→21:00)
[2017-04-02] MEDS: SODIUM CHLORIDE 0.9% FLUSH 10 ML FLUSH IV FLUSH SCH ×2 (08:32→21:00)
[2017-04-02] MEDS: PRAVASTATIN SOD 40 MG TAB PO SCH (08:33)
[2017-04-02] MEDS: LISINOPRIL 10 MG TAB PO SCH (08:33)
[2017-04-02] MEDS: LACTOBACILLUS ACIDOPHILUS TAB PO SCH ×3 (08:33→17:24)
[2017-04-02] MEDS: DONEPEZIL HCL 5 MG TAB PO SCH (08:33)
[2017-04-02] MEDS: GABAPENTIN 100 MG CAP PO SCH ×2 (08:34→22:17)
[2017-04-02] MEDS: COLLAGENASE OINT 30 GM TUBE TOPICAL SCH (08:34)
--- NOTE | 2017-04-02 10:22 | HHI.PR ---
Subjective Remarks cooperative and smiling and appropriate no complains of pain he is oriented to prson and place but not year d/w him plan for the procedure- he agrees to it but there is question of competency Objective Vitals Vital Signs Date Time Temp Pulse Resp B/P (MAP) Pulse Ox O2 Delivery O2 Flow Rate FiO2 04/02/17 08:00 97.8 75 18 159/75 (103) 97 04/02/17 05:00 71 04/02/17 04:15 98.6 64 21 130/66 (87) 95 04/02/17 02:05 64 04/02/17 00:30 97.9 69 21 129/70 (89) 96 04/01/17 22:14 75 04/01/17 20:40 98.8 68 19 129/68 (88) 96 04/01/17 16:00 98.4 90 18 125/60 (81) 93 04/01/17 12:00 98.7 90 18 134/57 (82) 92 I/O 04/01/17 04/01/17 04/01/17 04/02/17 04/02/17 04/02/17 07:00 15:00 23:00 07:00 15:00 23:00 Intake Total 617.5 ml 400 ml 100 ml Balance 617.5 ml 400 ml 100 ml Intake Oral 400 ml 100 ml IV Total 617.5 ml # Voids 4 3 1 # Bowel Movements 2 0 0 Result Diagram: 03/29/17 0727 04/01/17 1439 Imaging Last Impressions Skull X-Ray 03/29/17 0000 Signed Impressions: Service Date/Time: Wednesday, March 29, 2017 16:28 - CONCLUSION: Negative for radiopaque foreign bodies. As the wire wrap is seen about the angle of the mandible not felt to be contraindication to MRI. Yuan Recinos MD FACR Chest X-Ray 03/29/17 0000 Signed Impressions: Service Date/Time: Wednesday, March 29, 2017 16:25 - CONCLUSION: Negative chest. No radiopaque foreign bodies. Yuan Recinos MD FACR Ankle MRI 03/29/17 0000 Signed Impressions: Service Date/Time: Wednesday, March 29, 2017 16:48 - CONCLUSION: 1. Cellulitis in the right posterior calcaneal region with adjacent marrow edema and minimal marrow enhancement most characteristic of a very early calcaneal osteomyelitis posteriorly. Elroy Contreras MD Foot X-Ray 03/28/17 0000 Signed Impressions: Service Date/Time: Tuesday, March 28, 2017 13:37 - CONCLUSION: 1. Ulceration of the soft tissues of the heel. Soft tissue swelling right foot. Remote fracture distal fifth metatarsal. Elroy Contreras MD Objective Remarks awake and alert, oriented to person and place "[place]", ff all commands, speech clear anicteric lungs- no rales regular rhythm abdomen globularly soft, good bowel sounds, nontender right foot- heel with about 4 6 circumscribed superficial ulcer with superficial necrosis with less erythema, non tender ++ DP grossly no sensory deficits moves all extremities. lifts both LE and feet up with no difficulty or limitation in range of motion A/P Problem List: (1) Heel ulcer ICD Code: L97.409 - Non-pressure chronic ulcer of unspecified heel and midfoot with unspecified severity Status: Acute (2) Type 2 diabetes mellitus ICD Code: E11.9 - Type 2 diabetes mellitus without complications Status: Chronic (3) Dementia ICD Code: F03.90 - Unspecified dementia without behavioral disturbance Status: Chronic Assessment and Plan Mr. 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 Paz for evaluation of a chronic right heel ulcer. Nonhealing wound right heel- with some superficial skin necrosis with suspected osteomyelitis on MRI - Podiatry ff- will likely need debridement. - per Podiatry notes- considering ? bone biopsy - Antibiotics: Zosyn + Vancomycin - appreciate ID ff along with us - staff- nurse- Terri- spoke with POA- cousin- Liam Chavez- she got consent- signed Type 2 Diabetes Mellitus- good readings - Hold Metformin with elevated creatinine - Accuchecks ac and hs with low dose Novolog SS coverage - hypoglycemia treatment protocol - monitor trends in blood glucose and adjust treatment as indicated Dementia - resume home Aricept CKI likely with underlying DM nephropathy - ff BMP on antibiotics - non oliguric DVT prophylaxis - heparin 5000 units subq q8h PT/OT consult Out of bed to chair -tid for all meals Problem Qualifiers (1) Type 2 diabetes mellitus: Frankie Langley MD Apr 02, 2017 10:22
[2017-04-02 11:06] LABS: HEMOGLOBIN A1C 7.7 % (4.3-6.0)
[2017-04-02] MEDS: MIRTAZAPINE 15 MG TAB PO SCH (16:36)
[2017-04-02 18:38] LABS: AUTOMATED NEUTROPHIL # 8.1 TH/MM3 (1.8-7.7); BASOPHIL # 0.2 TH/MM3 (0-0.2); EOSINOPHIL # 0.3 TH/MM3 (0-0.4); EOSINOPHIL % 2.6 % (0.0-4.0); HEMATOCRIT 42.4 % (39.0-51.0); HEMOGLOBIN 13.8 GM/DL (13.0-17.0); LYMPH % 21.7 % (9.0-44.0); LYMPHOCYTE # 2.6 TH/MM3 (1.0-4.8); MEAN CELL VOLUME 83.7 FL (80.0-100.0); MEAN CORPUSCULAR HEMOGLOBIN 27.2 PG (27.0-34.0); MEAN CORPUSCULAR HGB CONC 32.6 % (32.0-36.0); MEAN PLATELET VOLUME 7.9 FL (7.0-11.0); MONO % 4.7 % (0.0-8.0); MONOCYTE # 0.6 TH/MM3 (0-0.9); PLATELET COUNT 358 TH/MM3 (150-450); RED BLOOD COUNT 5.07 MIL/MM3 (4.50-5.90); WHITE BLOOD COUNT 11.8 TH/MM3 (4.0-11.0)
[2017-04-02 18:46] LABS: CALCIUM 9.3 MG/DL (8.5-10.1); CREATININE 1.28 MG/DL (0.60-1.30)
--- NOTE | 2017-04-02 19:31 | PD.POD ---
Subjective Podiatric Problems Right heel ulcer with possible osteomyelitis of calcaneus Past Med/Surg/Social History Social History Smoking Status: Unknown If Ever Smoked Objective Vital Signs Vital Signs Date Time Temp Pulse Resp B/P (MAP) Pulse Ox O2 Delivery O2 Flow Rate FiO2 04/02/17 16:00 98.4 85 18 138/81 (100) 96 04/02/17 16:00 85 04/02/17 11:58 98.0 75 18 129/61 (83) 96 04/02/17 11:51 71 04/02/17 11:48 67 04/02/17 08:00 97.8 75 18 159/75 (103) 97 04/02/17 05:00 71 04/02/17 04:15 98.6 64 21 130/66 (87) 95 04/02/17 02:05 64 04/02/17 00:30 97.9 69 21 129/70 (89) 96 04/01/17 22:14 75 04/01/17 20:40 98.8 68 19 129/68 (88) 96 Coded Allergies: No Known Allergies (Verified Allergy, Unknown, 03/28/17) Assessment & Plan A/P Right heel ulcer, possible osteomyelitis Surgery canceled indefinitely for wound debridement/bone biopsy Re-consult if able to find a next of kin, otherwise recommend medical treatment with IV antibiotics for possible calcaneus osteomyelitis Podiatry signing off, continue local wound care Radha Barakat DPM Apr 02, 2017 19:31
[2017-04-03] VITALS (10 sets, daily range): BP systolic 97–148; BP diastolic 45–85; PULSE 68–89; RESP 18–22; TEMP 97.4–98.6; O2SAT 94–98
[2017-04-03] MEDS: PIPERACIL-TAZO 3.375 GM PREMIX 50 ML IV SCH ×4 (01:42→17:40)
[2017-04-03] MEDS: VANCOMYCIN INJ 1,750 MG in SODIUM CHLORID 0.9% 500 ML INJ 500 ML IV SCH (07:02)
[2017-04-03] MEDS: HEPARIN SODIUM - SQ 10,000 UNITS/ML VIAL SQ SCH ×4 (07:03→21:46)
[2017-04-03] MEDS: INSULIN ASPART SUPPLEMENTAL SCALE SQ SCH ×5 (08:00→21:47)
[2017-04-03] MEDS: SODIUM CHLORIDE 0.9% FLUSH 10 ML FLUSH IV FLUSH SCH ×2 (08:51→21:40)
[2017-04-03] MEDS: LISINOPRIL 10 MG TAB PO SCH (08:51)
[2017-04-03] MEDS: GABAPENTIN 100 MG CAP PO SCH ×2 (08:52→21:40)
[2017-04-03] MEDS: DONEPEZIL HCL 5 MG TAB PO SCH (08:52)
[2017-04-03] MEDS: PRAVASTATIN SOD 40 MG TAB PO SCH (08:52)
[2017-04-03] MEDS: LACTOBACILLUS ACIDOPHILUS TAB PO SCH ×3 (08:52→17:40)
[2017-04-03] MEDS: COLLAGENASE OINT 30 GM TUBE TOPICAL SCH (08:53)
--- NOTE | 2017-04-03 13:17 | HHI.PR ---
Subjective Remarks awake and alert no pain complains oriented to person and place ff all commands appropriately Objective Vitals Vital Signs Date Time Temp Pulse Resp B/P (MAP) Pulse Ox O2 Delivery O2 Flow Rate FiO2 04/03/17 12:11 97.4 70 20 97/45 (62) 95 04/03/17 07:57 97.8 73 20 126/77 (93) 95 04/03/17 03:45 97.9 80 22 120/64 (82) 94 04/03/17 01:00 98.6 89 20 130/67 (88) 94 04/02/17 21:00 98.6 83 18 122/65 (84) 94 04/02/17 20:00 93 04/02/17 16:00 98.4 85 18 138/81 (100) 96 04/02/17 16:00 85 I/O 04/02/17 04/02/17 04/02/17 04/03/17 04/03/17 04/03/17 07:00 15:00 23:00 07:00 15:00 23:00 Intake Total 100 ml 567 ml 1200 ml 100 ml Balance 100 ml 567 ml 1200 ml 100 ml Intake Oral 100 ml 1200 ml 100 ml IV Total 567 ml # Voids 1 4 6 8 # Bowel Movements 0 0 1 2 Result Diagram: 04/02/17 1700 04/02/17 1700 Imaging Last Impressions Skull X-Ray 03/29/17 0000 Signed Impressions: Service Date/Time: Wednesday, March 29, 2017 16:28 - CONCLUSION: Negative for radiopaque foreign bodies. As the wire wrap is seen about the angle of the mandible not felt to be contraindication to MRI. Yuan Recinos MD FACR Chest X-Ray 03/29/17 0000 Signed Impressions: Service Date/Time: Wednesday, March 29, 2017 16:25 - CONCLUSION: Negative chest. No radiopaque foreign bodies. Yuan Recinos MD FACR Ankle MRI 03/29/17 0000 Signed Impressions: Service Date/Time: Wednesday, March 29, 2017 16:48 - CONCLUSION: 1. Cellulitis in the right posterior calcaneal region with adjacent marrow edema and minimal marrow enhancement most characteristic of a very early calcaneal osteomyelitis posteriorly. Elroy Contreras MD Foot X-Ray 03/28/17 0000 Signed Impressions: Service Date/Time: Tuesday, March 28, 2017 13:37 - CONCLUSION: 1. Ulceration of the soft tissues of the heel. Soft tissue swelling right foot. Remote fracture distal fifth metatarsal. Elroy Contreras MD Objective Remarks awake and alert, oriented to person and place , ff all commands, speech clear, in no distress anicteric lungs- no rales regular rhythm abdomen globularly soft, good bowel sounds, nontender right foot- heel with about 4 6 circumscribed superficial ulcer with superficial necrosis with less erythema, non tender ++ DP grossly no sensory deficits moves all extremities. lifts both LE and feet up with no difficulty or limitation in range of motion A/P Problem List: (1) Heel ulcer ICD Code: L97.409 - Non-pressure chronic ulcer of unspecified heel and midfoot with unspecified severity Status: Acute (2) Type 2 diabetes mellitus ICD Code: E11.9 - Type 2 diabetes mellitus without complications Status: Chronic (3) Dementia ICD Code: F03.90 - Unspecified dementia without behavioral disturbance Status: Chronic Assessment and Plan Mr. Chavez is a 67 y/o male with a history of dementia, CHF, hypertension, and type 2 diabetes mellitus who was sent by his medical malpractice paralegal Dr. Paz for evaluation of a chronic right heel ulcer. Nonhealing wound right heel- with some superficial skin necrosis with suspected osteomyelitis on MRI - Podiatry ff- will likely need debridement. - per Podiatry notes- considering ? bone biopsy - Antibiotics: Zosyn + Vancomycin - appreciate ID ff along with us - staff- nurse- Terri- spoke with POA- cousin- Liam Chavez- she got consent- signed 04/02 - I called Dr. Aquino and informed her that consent was signed by his POA - states that one her partner will see patient Type 2 Diabetes Mellitus- good readings - Hold Metformin with elevated creatinine - Accuchecks ac and hs with low dose Novolog SS coverage - hypoglycemia treatment protocol - monitor trends in blood glucose and adjust treatment as indicated Dementia - resume home Aricept CKI likely with underlying DM nephropathy - ff BMP on antibiotics - non oliguric DVT prophylaxis - heparin 5000 units subq q8h PT/OT consult Out of bed to chair -tid for all meals Problem Qualifiers (1) Type 2 diabetes mellitus: Frankie Langley MD Apr 03, 2017 13:17
--- NOTE | 2017-04-03 15:47 | HHI.PR ---
Addendum to Inpatient Note Additional Information pt seen around 1300 today full note to follow Jennifer Chaves MD Apr 03, 2017 15:47
[2017-04-03] MEDS: MIRTAZAPINE 15 MG TAB PO SCH (16:37)
--- NOTE | 2017-04-03 17:34 | PD.POD ---
Subjective Podiatric Problems Right heel ulcer. Pt was not very talkative and most information was obtained from the chart. He did deny any pain currently. Past Med/Surg/Social History Social History Smoking Status: Unknown If Ever Smoked Objective Vital Signs Vital Signs Date Time Temp Pulse Resp B/P (MAP) Pulse Ox O2 Delivery O2 Flow Rate FiO2 04/03/17 16:00 97.9 75 20 132/75 (94) 96 04/03/17 12:11 97.4 70 20 97/45 (62) 95 04/03/17 12:00 70 04/03/17 08:53 68 04/03/17 07:57 97.8 73 20 126/77 (93) 95 04/03/17 03:45 97.9 80 22 120/64 (82) 94 04/03/17 01:00 98.6 89 20 130/67 (88) 94 04/02/17 21:00 98.6 83 18 122/65 (84) 94 04/02/17 20:00 93 Coded Allergies: No Known Allergies (Verified Allergy, Unknown, 03/28/17) Physical Exam Remarks Vasc- b/l DP and PT pulses palpable, CFT< 3 secs Neuro- unable to assess Bio-WNL Derm- Right heel full thickness boggy eschar, 5cm x 5cm, stringy fibronecrotic base, mod serous drainag + malodor Assessment & Plan A/P 1) right heel eschar with questionable OM -to OR on 04/05 for debridement, biopsy, and VAC -cont daily wound care with santyl and dry dressing -recommend changing to air mattress -pt is very high risk for bka, even with surgical and antibiotic intervention Delilah Hilton DPM Apr 03, 2017 17:34
[2017-04-03] MEDS ORDERED: RESP: ALBUTEROL 2.5 MG/IPRATROPIUM 0.5 MG NEB (PRN) NEB (22:15)
[2017-04-03] MEDS: guaiFENesin E.R. 600 MG TAB PO SCH (23:32)
--- NOTE | 2017-04-03 23:55 | HHI.IDPN ---
Subjective Subjective Remarks no complaints afebrile seems alert Dr Duval unable to erform surgery 2/ lack of consent Antibiotics vancomycin zosyn Allergies: Coded Allergies: No Known Allergies (Verified Allergy, Unknown, 03/28/17) Objective . Vital Signs Date Time Temp Pulse Resp B/P (MAP) Pulse Ox O2 Delivery O2 Flow Rate FiO2 04/03/17 22:36 98 Nasal Cannula 3.00 04/03/17 22:36 98 Nasal Cannula 2.00 04/03/17 20:30 98.3 80 18 148/85 (106) 97 04/03/17 16:00 97.9 75 20 132/75 (94) 96 04/03/17 16:00 72 04/03/17 12:11 97.4 70 20 97/45 (62) 95 04/03/17 12:00 70 04/03/17 08:53 68 04/03/17 07:57 97.8 73 20 126/77 (93) 95 04/03/17 03:45 97.9 80 22 120/64 (82) 94 04/03/17 01:00 98.6 89 20 130/67 (88) 94 04/03/17 04/03/17 04/04/17 14:59 22:59 06:59 Intake Total 567.5 ml 480 ml Balance 567.5 ml 480 ml Intake Oral 480 ml IV Total 567.5 ml # Voids 4 # Bowel Movements 2 . Laboratory Tests Test 04/02/17 17:00 White Blood Count 11.8 TH/MM3 Red Blood Count 5.07 MIL/MM3 Hemoglobin 13.8 GM/DL Hematocrit 42.4 % Mean Corpuscular Volume 83.7 FL Mean Corpuscular Hemoglobin 27.2 PG Mean Corpuscular Hemoglobin Concent 32.6 % Red Cell Distribution Width 17.0 % Platelet Count 358 TH/MM3 Mean Platelet Volume 7.9 FL Neutrophils (%) (Auto) 69.0 % Lymphocytes (%) (Auto) 21.7 % Monocytes (%) (Auto) 4.7 % Eosinophils (%) (Auto) 2.6 % Basophils (%) (Auto) 2.0 % Neutrophils # (Auto) 8.1 TH/MM3 Lymphocytes # (Auto) 2.6 TH/MM3 Monocytes # (Auto) 0.6 TH/MM3 Eosinophils # (Auto) 0.3 TH/MM3 Basophils # (Auto) 0.2 TH/MM3 CBC Comment AUTO DIFF Differential Comment AUTO DIFF CONFIRMED Laboratory Tests Test 04/02/17 17:00 Blood Urea Nitrogen 13 MG/DL Creatinine 1.28 MG/DL Random Glucose 138 MG/DL Calcium Level 9.3 MG/DL Sodium Level 138 MEQ/L Potassium Level 4.0 MEQ/L Chloride Level 99 MEQ/L Carbon Dioxide Level 35.0 MEQ/L Anion Gap 4 MEQ/L Estimat Glomerular Filtration Rate 56 ML/MIN Imaging Last Impressions Skull X-Ray 03/29/17 0000 Signed Impressions: Service Date/Time: Wednesday, March 29, 2017 16:28 - CONCLUSION: Negative for radiopaque foreign bodies. As the wire wrap is seen about the angle of the mandible not felt to be contraindication to MRI. Yuan Recinos MD FACR Chest X-Ray 03/29/17 0000 Signed Impressions: Service Date/Time: Wednesday, March 29, 2017 16:25 - CONCLUSION: Negative chest. No radiopaque foreign bodies. Yuan Recinos MD FACR Ankle MRI 03/29/17 0000 Signed Impressions: Service Date/Time: Wednesday, March 29, 2017 16:48 - CONCLUSION: 1. Cellulitis in the right posterior calcaneal region with adjacent marrow edema and minimal marrow enhancement most characteristic of a very early calcaneal osteomyelitis posteriorly. Erloy Contreras MD Foot X-Ray 03/28/17 0000 Signed Impressions: Service Date/Time: Tuesday, March 28, 2017 13:37 - CONCLUSION: 1. Ulceration of the soft tissues of the heel. Soft tissue swelling right foot. Remote fracture distal fifth metatarsal. Elroy Contreras MD Physical Exam CONSTITUTIONAL/GENERAL: This is a morbidly obese patient, in no apparent distress. TUBES/LINES/DRAINS: SKIN: No jaundice, rashes, or lesions. Skin temperature appropriate. Not diaphoretic. CARDIOVASCULAR: Regular rate and rhythm without murmurs, gallops, or rubs. No JVD. Peripheral pulses symmetric. RESPIRATORY/CHEST: Symmetric, unlabored respirations. Clear to auscultation. Breath sounds equal bilaterally. No wheezes, rales, or rhonchi. GASTROINTESTINAL: Abdomen soft, non-tender, nondistended. No hepato-splenomegaly , or palpable masses. No guarding. Bowel sounds present. GENITOURINARY: Without palpable bladder distension. Clement catheter in place. MUSCULOSKELETAL: Extremities without clubbing, cyanosis, + chronic appearing edemaand chronic BLE discoloration R foot with dressing in place, no ascending cellulitis/lymphangits No foul smell NEUROLOGICAL: Awake and alert. Confused Motor and sensory grossly within normal limits. Follows commands. Clear speech, but quite incoherent . Moves all extremities. PSYCHIATRIC: flat affect Assessment & Plan Remarks Assessment and Plan Assessment and Plan R heel diabetic foot infection with suspected osteomyelitis - bone bx planned for tomorrow - gangrenous changes present on the heel This is a limb threatening infection ROBERTA - improving - cont zosyn, vancomycin for now - awaiting for bone cultures willow obtained Final rec's per clx fu common lab (CBC, BMP) dw Dr Langley I will be off starting 04/04 thru 04/17 - other physicians are covering Jennifer Chaves MD Apr 03, 2017 23:55
[2017-04-04] VITALS (10 sets, daily range): BP systolic 124–152; BP diastolic 64–77; PULSE 69–97; RESP 17–18; TEMP 97.3–98.2; O2SAT 93–98
[2017-04-04] MEDS: VANCOMYCIN INJ 1,750 MG in SODIUM CHLORID 0.9% 500 ML INJ 500 ML IV SCH (05:17)
[2017-04-04] MEDS: PIPERACIL-TAZO 3.375 GM PREMIX 50 ML IV SCH ×4 (05:19→17:15)
[2017-04-04] MEDS ORDERED: PHARMACY ORDERED LAB ONE ×2 (05:45)
[2017-04-04] MEDS: INSULIN ASPART SUPPLEMENTAL SCALE SQ SCH ×4 (08:00→21:00)
[2017-04-04] MEDS: LACTOBACILLUS ACIDOPHILUS TAB PO SCH ×3 (09:04→17:15)
[2017-04-04] MEDS: DONEPEZIL HCL 5 MG TAB PO SCH (09:04)
[2017-04-04] MEDS: SODIUM CHLORIDE 0.9% FLUSH 10 ML FLUSH IV FLUSH SCH ×2 (09:04→22:34)
[2017-04-04] MEDS: guaiFENesin E.R. 600 MG TAB PO SCH ×2 (09:05→22:34)
[2017-04-04] MEDS: PRAVASTATIN SOD 40 MG TAB PO SCH (09:05)
[2017-04-04] MEDS: COLLAGENASE OINT 30 GM TUBE TOPICAL SCH (09:05)
[2017-04-04] MEDS: GABAPENTIN 100 MG CAP PO SCH ×2 (09:05→22:34)
[2017-04-04] MEDS: LISINOPRIL 10 MG TAB PO SCH (09:05)
[2017-04-04] MEDS: HEPARIN SODIUM - SQ 10,000 UNITS/ML VIAL SQ SCH (14:34)
--- NOTE | 2017-04-04 16:13 | HHI.PR ---
Subjective Remarks patient awake and alert, oriented to person and place ff all commands denies any pain calf or foot pain no nausea or vomiting Objective Vitals Vital Signs Date Time Temp Pulse Resp B/P (MAP) Pulse Ox O2 Delivery O2 Flow Rate FiO2 04/04/17 15:52 98.2 90 17 131/74 (93) 98 04/04/17 13:02 97.3 69 17 142/64 (90) 98 04/04/17 12:09 70 04/04/17 08:32 97.8 69 17 143/77 (99) 93 04/04/17 08:14 93 Nasal Cannula 2.00 04/04/17 08:00 72 04/04/17 05:11 97.9 74 18 146/75 (98) 97 04/04/17 04:53 97 Nasal Cannula 2.00 04/04/17 04:42 71 04/04/17 02:00 97 Nasal Cannula 2.00 04/04/17 00:20 97.8 97 18 124/74 (91) 97 04/04/17 00:00 86 04/03/17 22:36 98 Nasal Cannula 3.00 04/03/17 22:36 98 Nasal Cannula 2.00 04/03/17 21:00 96 Nasal Cannula 2.00 04/03/17 20:30 98.3 80 18 148/85 (106) 97 04/03/17 20:00 74 I/O 04/03/17 04/03/17 04/03/17 04/04/17 04/04/17 04/04/17 07:00 15:00 23:00 07:00 15:00 23:00 Intake Total 100 ml 567.5 ml 720 ml 120 ml 50 ml Balance 100 ml 567.5 ml 720 ml 120 ml 50 ml Intake Oral 100 ml 720 ml 120 ml IV Total 567.5 ml 50 ml # Voids 8 4 3 1 1 # Bowel Movements 2 2 1 Result Diagram: 04/02/17 1700 04/02/17 170 Imaging Last Impressions Skull X-Ray 03/29/17 0000 Signed Impressions: Service Date/Time: Wednesday, March 29, 2017 16:28 - CONCLUSION: Negative for radiopaque foreign bodies. As the wire wrap is seen about the angle of the mandible not felt to be contraindication to MRI. Yuan Recinos MD FACR Chest X-Ray 03/29/17 0000 Signed Impressions: Service Date/Time: Wednesday, March 29, 2017 16:25 - CONCLUSION: Negative chest. No radiopaque foreign bodies. Yuan Recinos MD FACR Ankle MRI 03/29/17 0000 Signed Impressions: Service Date/Time: Wednesday, March 29, 2017 16:48 - CONCLUSION: 1. Cellulitis in the right posterior calcaneal region with adjacent marrow edema and minimal marrow enhancement most characteristic of a very early calcaneal osteomyelitis posteriorly. Elroy Contreras MD Foot X-Ray 03/28/17 0000 Signed Impressions: Service Date/Time: Tuesday, March 28, 2017 13:37 - CONCLUSION: 1. Ulceration of the soft tissues of the heel. Soft tissue swelling right foot. Remote fracture distal fifth metatarsal. Elroy Contreras MD Objective Remarks awake and alert, oriented to person and place , ff all commands, speech clear, in no distress anicteric lungs- no rales regular rhythm abdomen globularly soft, good bowel sounds, nontender right foot- heel with about 4 6 circumscribed superficial ulcer with superficial necrosis, non tender ++ DP grossly no sensory deficits moves all extremities. lifts both LE and feet up with no difficulty or limitation in range of motion A/P Problem List: (1) Heel ulcer ICD Code: L97.409 - Non-pressure chronic ulcer of unspecified heel and midfoot with unspecified severity Status: Acute (2) Type 2 diabetes mellitus ICD Code: E11.9 - Type 2 diabetes mellitus without complications Status: Chronic (3) Dementia ICD Code: F03.90 - Unspecified dementia without behavioral disturbance Status: Chronic Assessment and Plan Mr. Chavez is a 67 y/o male with a history of dementia, CHF, hypertension, and type 2 diabetes mellitus who was sent by his silverware supervisor Dr. Paz for evaluation of a chronic right heel ulcer. Nonhealing wound right heel- with some superficial skin necrosis with suspected osteomyelitis on MRI - Podiatry ff- taking him to surgeryn debridement with bone biopsy and possible VAC placement - Antibiotics: Zosyn + Vancomycin - appreciate ID ff along with us - staff- nurse- Terri- spoke with POA- cousin- Liam Chavez- she got consent- signed 04/02 Type 2 Diabetes Mellitus- good readings - Hold Metformin with elevated creatinine - Accuchecks ac and hs with low dose Novolog SS coverage - hypoglycemia treatment protocol - monitor trends in blood glucose and adjust treatment as indicated Dementia- pleasant and cooperative, oriented to person and place - resume home Aricept CKI likely with underlying DM nephropathy - ff BMP on antibiotics - non oliguric DVT prophylaxis - heparin 5000 units subq q8h- will hold for surgery in am PT/OT consult Out of bed to chair -tid for all meals Problem Qualifiers (1) Type 2 diabetes mellitus: Frankie Langley MD Apr 04, 2017 16:13
[2017-04-04] MEDS: MIRTAZAPINE 15 MG TAB PO SCH (16:15)
[2017-04-05] VITALS (8 sets, daily range): BP systolic 110–143; BP diastolic 53–95; PULSE 63–80; RESP 16–18; TEMP 97–98.6; O2SAT 91–98
[2017-04-05] MEDS: PIPERACIL-TAZO 3.375 GM PREMIX 50 ML IV SCH ×4 (01:13→18:57)
[2017-04-05] MEDS: VANCOMYCIN INJ 1,750 MG in SODIUM CHLORID 0.9% 500 ML INJ 500 ML IV SCH (05:59)
[2017-04-05] MEDS: INSULIN ASPART SUPPLEMENTAL SCALE SQ SCH ×4 (08:27→21:00)
[2017-04-05] MEDS: PRAVASTATIN SOD 40 MG TAB PO SCH (08:28)
[2017-04-05] MEDS: DONEPEZIL HCL 5 MG TAB PO SCH (08:28)
[2017-04-05] MEDS: GABAPENTIN 100 MG CAP PO SCH ×2 (08:28→22:30)
[2017-04-05] MEDS: LACTOBACILLUS ACIDOPHILUS TAB PO SCH ×3 (08:28→18:57)
[2017-04-05] MEDS: LISINOPRIL 10 MG TAB PO SCH (08:28)
[2017-04-05] MEDS: guaiFENesin E.R. 600 MG TAB PO SCH ×2 (08:28→22:30)
[2017-04-05] MEDS: COLLAGENASE OINT 30 GM TUBE TOPICAL SCH (08:29)
[2017-04-05] MEDS: SODIUM CHLORIDE 0.9% FLUSH 10 ML FLUSH IV FLUSH SCH ×2 (08:29→22:29)
[2017-04-05 09:04] LABS: BICARBONATE 34.8 MEQ/L (21.0-32.0); CALCIUM 9.3 MG/DL (8.5-10.1); CREATININE 1.34 MG/DL (0.60-1.30)
[2017-04-05 09:09] LABS: VANCOMYCIN TROUGH 32.9 MCG/ML (5.0-10.0)
[2017-04-05] MEDS ORDERED: LIDOCAINE HCL 1% PF 5 ML SYRINGE OTHER ONE (12:00)
[2017-04-05] MEDS ORDERED: SUCCINYLCHOLINE CHLORIDE 200 MG/10 ML VIAL IV ONE (12:00)
[2017-04-05] MEDS ORDERED: METOPROLOL TARTRATE 5 MG/5 ML VIAL IV ONE (12:00)
[2017-04-05] MEDS ORDERED: PROPOFOL 200 MG/20 ML AMP IV ONE (12:00)
[2017-04-05] MEDS: SODIUM CHLOR 0.9% 1000 ML INJ 1,000 ML IV SCH (15:08)
[2017-04-05] MEDS ORDERED: BUPIVACAINE HCL PF 0.5% 30 ML VIAL ONE (15:32)
[2017-04-05] MEDS ORDERED: ACETAMINOPHEN 1000 MG/100 ML 100 ML IV ONE (15:49)
[2017-04-05] MEDS: MIRTAZAPINE 15 MG TAB PO SCH (16:00)
--- NOTE | 2017-04-05 16:28 | HHI.PR ---
Subjective Remarks Resting in bed, no complain, afebrile overnight Patient told me he is not aware of having kidney failure in the past Objective Vitals Vital Signs Date Time Temp Pulse Resp B/P (MAP) Pulse Ox O2 Delivery O2 Flow Rate FiO2 04/05/17 15:30 97.9 72 16 143/95 (111) 91 04/05/17 12:36 97.0 72 16 110/67 (81) 92 04/05/17 08:36 Room Air 04/05/17 08:36 97.5 63 16 133/69 (90) 96 04/05/17 04:43 97.9 65 18 132/66 (88) 98 04/05/17 00:05 98.6 80 18 110/53 (72) 95 04/05/17 00:00 72 04/04/17 21:30 97 Nasal Cannula 2.00 04/04/17 20:00 85 04/04/17 20:00 98.1 83 18 152/72 (98) 94 I/O 04/04/17 04/04/17 04/04/17 04/05/17 04/05/17 04/05/17 06:59 14:59 22:59 06:59 14:59 22:59 Intake Total 120 ml 50 ml 50 ml 170 ml Output Total 300 ml Balance 120 ml 50 ml 50 ml -130 ml Intake Oral 120 ml 120 ml IV Total 50 ml 50 ml 50 ml Output Urine Total 300 ml # Voids 3 1 2 2 1 # Bowel Movements 1 Result Diagram: 04/02/17 1700 04/05/17 0739 Objective Remarks GENERAL: This is a well-nourished, well-developed patient, in no apparent distress. SKIN: No rashes, warm and dry HEAD: Atraumatic. Normocephalic. EYES: Pupils equal round and reactive. Extraocular motions intact. No scleral icterus. ENT: Nose without bleeding, or drainage, Airway patent. NECK: Trachea midline. Supple CARDIOVASCULAR: Regular rate and rhythm without murmurs, gallops, or rubs. RESPIRATORY: Fair air entry bilaterally. No wheezes, rales, or rhonchi. GASTROINTESTINAL: Abdomen soft, non-tender, nondistended. Positive bowel sounds MUSCULOSKELETAL: Extremities without clubbing, cyanosis, or edema. Pedal pulses appreciated, bilateral heels in gauze NEUROLOGICAL: Awake and alert. Moves all extremity. Normal speech.no focal neurological deficit A/P Problem List: (1) Heel ulcer ICD Code: L97.409 - Non-pressure chronic ulcer of unspecified heel and midfoot with unspecified severity Status: Acute (2) Type 2 diabetes mellitus ICD Code: E11.9 - Type 2 diabetes mellitus without complications Status: Chronic (3) Dementia ICD Code: F03.90 - Unspecified dementia without behavioral disturbance Status: Chronic Assessment and Plan Mr. Chavez is a 67 y/o male with a history of dementia, CHF, hypertension, and type 2 diabetes mellitus who was sent by his jointer machine operator Dr. Paz for evaluation of a chronic right heel ulcer. Nonhealing wound right heel- with some superficial skin necrosis with suspected osteomyelitis on MRI - Podiatry ff-: 4 debridement with bone biopsy and possible VAC placement - Antibiotics: Zosyn + Vancomycin - appreciate ID ff along with us Type 2 Diabetes Mellitus- good readings - Hold Metformin with elevated creatinine - Accuchecks ac and hs with low dose Novolog SS coverage - hypoglycemia treatment protocol - monitor trends in blood glucose and adjust treatment as indicated Dementia- pleasant and cooperative, oriented to person and place - resume home Aricept AK I versus CKD likely with underlying DM nephropathy - ff BMP on antibiotics - non oliguric -I will hold lisinopril, and clonidine as needed DVT prophylaxis - heparin 5000 units subq q8h- will hold for surgery in am PT/OT consult Out of bed to chair -tid for all meals Problem Qualifiers (1) Type 2 diabetes mellitus: Clary El MD Apr 05, 2017 16:28
[2017-04-05] MEDS ORDERED: DO NOT ADM ANY ANTICOAGULANT DRUGS PRN (17:35)
[2017-04-05] MEDS ORDERED: MIDAZOLAM HCL 2 MG/2 ML VIAL ONE ×2 (17:52→17:54)
[2017-04-05] MEDS ORDERED: cloNIDine HCL 0.1 MG TAB PO PRN (18:00)
--- NOTE | 2017-04-05 19:05 | MP ---
cc: DELILAH LAUGHLIN DATE OF SURGERY 04/05/[address] Delilah Laughlin DRY CELL SEALER None PREOPERATIVE DIAGNOSES 1. Right foot heel ulceration. 2. Right foot suspected osteomyelitis. POSTOPERATIVE DIAGNOSES 1. Right foot heel ulceration. 2. Right foot suspected osteomyelitis. PROCEDURE PERFORMED 1. Right foot bone biopsy of the calcaneus. 2. Right foot wound debridement. 3. Right foot wound VAC placement. PATHOLOGY SENT Right calcaneus. ANESTHESIA General HEMOSTASIS Anatomical dissection. ESTIMATED BLOOD LOSS 100 ml. INJECTABLES None MATERIALS USED KCI black wound VAC COMPLICATIONS None INDICATION Mr. Chavez is a 67-year-old male with advanced dementia who presented last week to the hospital with a severe wound to the right foot and suspected but unconfirmed osteomyelitis of the right heel. In order to further diagnosis possible osteomyelitis and determine treatment plans, a bone biopsy has been requested. The consult was signed by the patient's power of contract attorney as he is not lucid for consent. PROCEDURE Under mild sedation the patient was brought to the operating room, placed on the operating table in supine position. Following IV sedation pneumatic ankle tourniquet was placed on the right ankle. The foot was then scrubbed, prepped and draped in usual aseptic manner. Attention was directed to the plantar posterior aspect of the heel. There is a 5.0 x 5.5 x 1.0 cm fibrin necrotic ulceration. A rongeur and a scalpel were used for debridement of nonviable necrotic tissue. At the posterior central aspect of the wound there was a very deep probing area. Bone was unexposed but there was a very thin, fat layer of coverage. After the wound edges were cleaned and the wound bed was debrided as much as possible to allow for as much healthy tissue as possible being exposed. The area was flushed with copious amounts of sterile saline. A Jamshidi needle was then used to obtain a bone biopsy at the wound site which had the thickest wound. A small portion of bone biopsy was sent to pathology, a small portion was sent to microbiology. It should be noted that the bone was soft and very easy to obtain a biopsy. The area was again cleaned with sterile saline and a KCI black wound VAC was applied over the wound, set to 125 mmHg, medium continuous pressure, secured with the VAC tape, padded with 4x4s, cast padding and a very light Brendan wrap. The patient tolerated the procedure and anesthesia well. He will recover in PACU for a period of time before being discharged home with written and oral postoperative instructions. Delilah HURTADO/KK /5:45 PM /6:37 PM
[2017-04-06] VITALS (9 sets, daily range): BP systolic 107–150; BP diastolic 54–78; PULSE 66–79; RESP 16–18; TEMP 94–98.4; O2SAT 94–98
[2017-04-06] MEDS: PIPERACIL-TAZO 3.375 GM PREMIX 50 ML IV SCH ×4 (01:01→18:02)
[2017-04-06] MEDS: SODIUM CHLOR 0.9% 1000 ML INJ 1,000 ML IV SCH ×2 (04:19→14:58)
[2017-04-06] MEDS: VANCOMYCIN INJ 1,750 MG in SODIUM CHLORID 0.9% 500 ML INJ 500 ML IV SCH (05:27)
[2017-04-06 08:04] LABS: BICARBONATE 33.4 MEQ/L (21.0-32.0); CALCIUM 9.4 MG/DL (8.5-10.1); CREATININE 1.26 MG/DL (0.60-1.30)
[2017-04-06] MEDS: LACTOBACILLUS ACIDOPHILUS TAB PO SCH ×3 (08:42→17:22)
[2017-04-06] MEDS: INSULIN ASPART SUPPLEMENTAL SCALE SQ SCH ×4 (08:42→21:34)
[2017-04-06] MEDS: COLLAGENASE OINT 30 GM TUBE TOPICAL SCH (08:43)
[2017-04-06] MEDS: GABAPENTIN 100 MG CAP PO SCH ×2 (08:43→21:34)
[2017-04-06] MEDS: PRAVASTATIN SOD 40 MG TAB PO SCH (08:43)
[2017-04-06] MEDS: guaiFENesin E.R. 600 MG TAB PO SCH ×2 (08:43→21:35)
[2017-04-06] MEDS: DONEPEZIL HCL 5 MG TAB PO SCH (08:43)
[2017-04-06] MEDS: SODIUM CHLORIDE 0.9% FLUSH 10 ML FLUSH IV FLUSH SCH ×2 (08:43→21:00)
--- NOTE | 2017-04-06 15:19 | HHI.PR ---
Subjective Remarks Resting in bed complaining of pain but tolerable Continue iv antibiotic waking biopsy report and culture to guide antibiotic coverage Objective Vitals Vital Signs Date Time Temp Pulse Resp B/P (MAP) Pulse Ox O2 Delivery O2 Flow Rate FiO2 04/06/17 14:33 98 04/06/17 12:00 97.7 70 16 142/70 (94) 98 04/06/17 09:51 Room Air 04/06/17 08:20 70 04/06/17 08:00 97.5 66 16 131/66 (87) 98 04/06/17 04:46 98.4 70 18 150/75 (100) 94 04/06/17 00:42 98.4 72 18 147/78 (101) 96 04/05/17 21:30 72 04/05/17 21:30 96 Nasal Cannula 2.00 04/05/17 20:50 97.9 67 18 126/75 (92) 96 04/05/17 18:15 82 13 136/71 (92) 93 Nasal Cannula 2 04/05/17 18:00 88 18 123/70 (87) 95 Nasal Cannula 2 04/05/17 17:39 98.3 72 20 118/62 (80) 100 Nasal Cannula 2 04/05/17 15:30 97.9 72 16 143/95 (111) 91 I/O 04/05/17 04/05/17 04/05/17 04/06/17 04/06/17 04/06/17 07:00 15:00 23:00 07:00 15:00 23:00 Intake Total 170 ml 200 ml 240 ml 250 ml Output Total 300 ml 50 ml Balance -130 ml 150 ml 240 ml 250 ml Intake Oral 120 ml 240 ml IV Total 50 ml 200 ml 250 ml Output Urine Total 300 ml Estimated Blood Loss 50 ml # Voids 2 1 3 Result Diagram: 04/02/17 1700 04/06/17 0708 Objective Remarks GENERAL: This is a well-nourished, well-developed patient, in no apparent distress. SKIN: No rashes, warm and dry HEAD: Atraumatic. Normocephalic. EYES: Pupils equal round and reactive. Extraocular motions intact. No scleral icterus. ENT: Nose without bleeding, or drainage, Airway patent. NECK: Trachea midline. Supple CARDIOVASCULAR: Regular rate and rhythm without murmurs, gallops, or rubs. RESPIRATORY: Fair air entry bilaterally. No wheezes, rales, or rhonchi. GASTROINTESTINAL: Abdomen soft, non-tender, nondistended. Positive bowel sounds MUSCULOSKELETAL: Extremities without clubbing, cyanosis, or edema. Pedal pulses appreciated, bilateral heels in gauze NEUROLOGICAL: Awake and alert. Moves all extremity. Normal speech.no focal neurological deficit A/P Problem List: (1) Heel ulcer ICD Code: L97.409 - Non-pressure chronic ulcer of unspecified heel and midfoot with unspecified severity Status: Acute (2) Type 2 diabetes mellitus ICD Code: E11.9 - Type 2 diabetes mellitus without complications Status: Chronic (3) Dementia ICD Code: F03.90 - Unspecified dementia without behavioral disturbance Status: Chronic Assessment and Plan 04/06: Continue iv antibiotic waking biopsy report and culture to guide antibiotic coverage, monitor for any fever, monitor blood sugar, monitor BMP and urine output, creatinine improved to 1.26 today Mr. Chavez is a 67 y/o male with a history of dementia, CHF, hypertension, and type 2 diabetes mellitus who was sent by his aligner typewriter Dr. Paz for evaluation of a chronic right heel ulcer. Nonhealing wound right heel- with some superficial skin necrosis with suspected osteomyelitis on MRI - Podiatry ff-: 4 debridement with bone biopsy and possible VAC placement - Antibiotics: Zosyn + Vancomycin - appreciate ID ff along with us Type 2 Diabetes Mellitus- good readings - Hold Metformin with elevated creatinine - Accuchecks ac and hs with low dose Novolog SS coverage - hypoglycemia treatment protocol - monitor trends in blood glucose and adjust treatment as indicated Dementia- pleasant and cooperative, oriented to person and place - resume home Aricept AK I versus CKD likely with underlying DM nephropathy - ff BMP on antibiotics - non oliguric -I will hold lisinopril, and clonidine as needed DVT prophylaxis - heparin 5000 units subq q8h- will hold for surgery in am PT/OT consult Out of bed to chair -tid for all meals Problem Qualifiers (1) Type 2 diabetes mellitus: Clary El MD Apr 06, 2017 15:19
[2017-04-06] MEDS: MIRTAZAPINE 15 MG TAB PO SCH (17:22)
[2017-04-07] VITALS: BP 127/63; PULSE 85; PULSE 88; RESP 18; TEMP 98.1; O2SAT 95
[2017-04-07] MEDS: SODIUM CHLOR 0.9% 1000 ML INJ 1,000 ML IV SCH ×2 (00:02→15:28)
[2017-04-07] MEDS: PIPERACIL-TAZO 3.375 GM PREMIX 50 ML IV SCH ×5 (00:02→23:36)
[2017-04-07 04:00] VITALS: BP 139/62; PULSE 71; PULSE 72; RESP 18; TEMP 97.8; O2SAT 95
[2017-04-07] MEDS: VANCOMYCIN INJ 1,750 MG in SODIUM CHLORID 0.9% 500 ML INJ 500 ML IV SCH (06:45)
[2017-04-07] MEDS: LACTOBACILLUS ACIDOPHILUS TAB PO SCH ×3 (08:41→18:05)
[2017-04-07] MEDS: guaiFENesin E.R. 600 MG TAB PO SCH ×2 (08:41→21:44)
[2017-04-07] MEDS: GABAPENTIN 100 MG CAP PO SCH ×2 (08:41→21:45)
[2017-04-07] MEDS: PRAVASTATIN SOD 40 MG TAB PO SCH (08:41)
[2017-04-07] MEDS: COLLAGENASE OINT 30 GM TUBE TOPICAL SCH (08:42)
[2017-04-07] MEDS: SODIUM CHLORIDE 0.9% FLUSH 10 ML FLUSH IV FLUSH SCH ×2 (08:42→21:00)
[2017-04-07] MEDS: DONEPEZIL HCL 5 MG TAB PO SCH (08:42)
[2017-04-07] MEDS: INSULIN ASPART SUPPLEMENTAL SCALE SQ SCH ×4 (08:42→21:45)
[2017-04-07 08:54] VITALS: BP 104/54; PULSE 71; RESP 17; TEMP 97.6; O2SAT 96
[2017-04-07 12:00] VITALS: BP 115/70; PULSE 74; RESP 18; TEMP 97.9; O2SAT 97
--- NOTE | 2017-04-07 14:13 | HHI.PR ---
Subjective Remarks Sitting on the stretcher is sleeping woke up to voice Denied complain Afebrile Objective Vitals Vital Signs Date Time Temp Pulse Resp B/P (MAP) Pulse Ox O2 Delivery O2 Flow Rate FiO2 04/07/17 08:54 97.6 71 17 104/54 (71) 96 04/07/17 04:00 71 04/07/17 04:00 97.8 72 18 139/62 (87) 95 04/07/17 00:00 88 04/07/17 00:00 98.1 85 18 127/63 (84) 95 04/06/17 20:08 Room Air 04/06/17 20:00 79 04/06/17 20:00 94.0 76 18 130/65 (86) 94 04/06/17 18:38 98 04/06/17 16:00 97.7 73 18 107/54 (71) 98 04/06/17 14:33 98 I/O 04/06/17 04/06/17 04/06/17 04/07/17 04/07/17 04/07/17 07:00 15:00 23:00 07:00 15:00 23:00 Intake Total 240 ml 250 ml Balance 240 ml 250 ml Intake Oral 240 ml IV Total 250 ml # Voids 3 1 1 Result Diagram: 04/06/17 0708 Objective Remarks GENERAL: This is a well-nourished, well-developed patient, in no apparent distress. SKIN: No rashes, warm and dry HEAD: Atraumatic. Normocephalic. EYES: Pupils equal round and reactive. Extraocular motions intact. No scleral icterus. ENT: Nose without bleeding, or drainage, Airway patent. NECK: Trachea midline. Supple CARDIOVASCULAR: Regular rate and rhythm without murmurs, gallops, or rubs. RESPIRATORY: Fair air entry bilaterally. No wheezes, rales, or rhonchi. GASTROINTESTINAL: Abdomen soft, non-tender, nondistended. Positive bowel sounds MUSCULOSKELETAL: Extremities without clubbing, cyanosis, or edema. Pedal pulses appreciated, bilateral heels in gauze NEUROLOGICAL: Awake and alert. Moves all extremity. Normal speech.no focal neurological deficit A/P Problem List: (1) Heel ulcer ICD Code: L97.409 - Non-pressure chronic ulcer of unspecified heel and midfoot with unspecified severity Status: Acute (2) Type 2 diabetes mellitus ICD Code: E11.9 - Type 2 diabetes mellitus without complications Status: Chronic (3) Dementia ICD Code: F03.90 - Unspecified dementia without behavioral disturbance Status: Chronic Assessment and Plan 04/06: Continue iv antibiotic waking biopsy report and culture to guide antibiotic coverage, monitor for any fever, monitor blood sugar, monitor BMP and urine output, creatinine improved to 1.26 today 2/2: Stable no acute issues overnight, continue antibiotic, awaiting result of the culture and biopsy Mr. Chavez is a 67 y/o male with a history of dementia, CHF, hypertension, and type 2 diabetes mellitus who was sent by his load planner Dr. Paz for evaluation of a chronic right heel ulcer. Nonhealing wound right heel- with some superficial skin necrosis with suspected osteomyelitis on MRI - Podiatry ff-: 4 debridement with bone biopsy and possible VAC placement - Antibiotics: Zosyn + Vancomycin - appreciate ID ff along with us Type 2 Diabetes Mellitus- good readings - Hold Metformin with elevated creatinine - Accuchecks ac and hs with low dose Novolog SS coverage - hypoglycemia treatment protocol - monitor trends in blood glucose and adjust treatment as indicated Dementia- pleasant and cooperative, oriented to person and place - resume home Aricept AK I versus CKD likely with underlying DM nephropathy - ff BMP on antibiotics - non oliguric -I will hold lisinopril, and clonidine as needed DVT prophylaxis - heparin 5000 units subq q8h- will hold for surgery in am PT/OT consult Out of bed to chair -tid for all meals Discharge Planning DC within 1-2 days once cleared by ID Problem Qualifiers (1) Type 2 diabetes mellitus: Clary El MD Apr 07, 2017 14:13
[2017-04-07] MEDS: MIRTAZAPINE 15 MG TAB PO SCH (15:27)
--- NOTE | 2017-04-07 15:39 | HHI.IDPN ---
Note Infectious Disease Note ID Coverage for Dr Chaves. Patient without complaints afebrile Awake and alert. Had biopsy of R heel. Path has no evidence of osteomyelitis. Wound culture has normal wesley. Antibiotics vancomycin zosyn Allergies: Coded Allergies: No Known Allergies (Verified Allergy, Unknown, 03/28/17) OBJECTIVE: Vital Signs Date Time Temp Pulse Resp B/P (MAP) Pulse Ox O2 Delivery O2 Flow Rate FiO2 04/07/17 12:00 97.9 74 18 115/70 (85) 97 04/07/17 08:54 97.6 71 17 104/54 (71) 96 04/07/17 04:00 71 04/07/17 04:00 97.8 72 18 139/62 (87) 95 04/07/17 00:00 88 04/07/17 00:00 98.1 85 18 127/63 (84) 95 04/06/17 20:08 Room Air 04/06/17 20:00 79 04/06/17 20:00 94.0 76 18 130/65 (86) 94 04/06/17 18:38 98 04/06/17 16:00 97.7 73 18 107/54 (71) 98 Laboratory Tests Test 04/06/17 07:08 Blood Urea Nitrogen 15 MG/DL Creatinine 1.26 MG/DL Random Glucose 94 MG/DL Calcium Level 9.4 MG/DL Sodium Level 141 MEQ/L Potassium Level 4.2 MEQ/L Chloride Level 102 MEQ/L Carbon Dioxide Level 33.4 MEQ/L Anion Gap 6 MEQ/L Estimat Glomerular Filtration Rate 57 ML/MIN Microbiology Date/Time Source Procedure Growth Status 04/05/17 21:30 Wound Heel Fungal Smear - Final NO FUNGAL ELEMENTS SEEN. Resulted 04/05/17 21:30 Wound Heel Fungal Culture Pending Resulted 04/05/17 21:30 Wound Heel Acid Fast Stain - Final NO ACID FAST BACILLI SEEN Resulted 04/05/17 21:30 Wound Heel Mycobacterial Culture Pending Resulted 04/05/17 21:30 Wound Heel Gram Stain - Final Resulted 04/05/17 21:30 Wound Heel Wound Culture - Preliminary Resulted Imaging Skull X-Ray 03/29/17 0000 Signed Impressions: Service Date/Time: Wednesday, March 29, 2017 16:28 - CONCLUSION: Negative for radiopaque foreign bodies. As the wire wrap is seen about the angle of the mandible not felt to be contraindication to MRI. Yuan Recinos MD FACR Chest X-Ray 03/29/17 0000 Signed Impressions: Service Date/Time: Wednesday, March 29, 2017 16:25 - CONCLUSION: Negative chest. No radiopaque foreign bodies. Yuan Recinos MD FACR Ankle MRI 03/29/17 0000 Signed Impressions: Service Date/Time: Wednesday, March 29, 2017 16:48 - CONCLUSION: 1. Cellulitis in the right posterior calcaneal region with adjacent marrow edema and minimal marrow enhancement most characteristic of a very early calcaneal osteomyelitis posteriorly. Elroy Contreras MD Foot X-Ray 03/28/17 0000 Signed Impressions: Service Date/Time: Tuesday, March 28, 2017 13:37 - CONCLUSION: 1. Ulceration of the soft tissues of the heel. Soft tissue swelling right foot. Remote fracture distal fifth metatarsal. Elroy Contreras MD Physical Exam GENERAL: Patient is in no acute distress. HEENT: EOMI, No icterus. NECK: Supple. LUNGS: Clear breath sounds. CARDIAC: Regular rate and rhythm ABDOMEN: Soft, non tender. EXTREMITIES: Right heel has active brisk bleeding of bright red blood at the wound bed. SKIN: No rash. Assessment and Plan R heel diabetic foot infection. No osteomyelitis on biopsy pathology. Culture has normal wesley/Corynebacterium. - gangrenous changes present on the heel. - post debridement. ROBERTA - improving - cont zosyn, - Stop vancomycin. - If no other significant bacteria on culture, Antibiotics can be stopped and patient can be treated with wound care. Follow culture. common lab (CBC, BMP) Mark Saab MD Apr 07, 2017 15:39
--- NOTE | 2017-04-07 16:55 | PD.WCN.NOT ---
Wound Consult Description: Received consult from Doctor Hilton for wound VAC dressing change of R heel wound M-W-F Communicated with: OLGA Dodson and Doctor Delilah Hilton Recommendation: Please leave Puracol AG (Collagen AG) dressing in place on R heel wound until seen by podiatry. Please change outer dressings as follows change gauze pads and Optilock every other day or as needed for strikethrough drainage. Additional Information: Patient seen on [address] for wound VAC dressing application.Removed gauze dressing in place to reveal wound to R heel. Wound measures ~5cm x ~4cm x 0.6cm at the deepest area in center of the wound that is dime sized. Wound drainage is moderate and sanguinous without odor. Cleansed wound with normal saline and patted dry. Pressure held to bleeding area in wound bed with gauze pads. Doctor Hilton was notified of wound status.Doctor Saab also concerned with bleeding from wound bed. [facility] also assessed wound to R heel. Wound does not present wound VAC appropriate. Wound is less than 1cm at its deepest area. Majority of the wound presents with depth less than 0.3cm. Wound is at risk for hypergranulation with continued wound VAC use.Wound presents with 100 % clean granulated tissue. Periwound is unremarkable. Applied Purocol AG ( Collagen dressing) in place over wound bed, then applied dry 4x4 gauze pads in place, secured with Optilock dressing, rolled gauze and tape. Keisha Jenkins [facility] Apr 07, 2017 16:55
[2017-04-07 20:00] VITALS: BP 134/73; PULSE 81; PULSE 93; RESP 18; TEMP 98; O2SAT 97
[2017-04-07 20:18] VITALS: O2SAT 97
[2017-04-08] VITALS (12 sets, daily range): BP systolic 127–184; BP diastolic 75–89; PULSE 73–87; RESP 18–22; TEMP 97.7–98.6; O2SAT 93–99
[2017-04-08] MEDS: SODIUM CHLOR 0.9% 1000 ML INJ 1,000 ML IV SCH ×2 (04:59→14:30)
[2017-04-08] MEDS: PIPERACIL-TAZO 3.375 GM PREMIX 50 ML IV SCH ×3 (05:00→17:27)
[2017-04-08] MEDS ORDERED: PHARMACY ORDERED LAB ONE (05:45)
[2017-04-08] MEDS: INSULIN ASPART SUPPLEMENTAL SCALE SQ SCH ×4 (07:32→21:00)
[2017-04-08] MEDS: COLLAGENASE OINT 30 GM TUBE TOPICAL SCH (07:48)
[2017-04-08] MEDS: GABAPENTIN 100 MG CAP PO SCH ×2 (07:51→22:52)
[2017-04-08] MEDS: DONEPEZIL HCL 5 MG TAB PO SCH (07:51)
[2017-04-08] MEDS: PRAVASTATIN SOD 40 MG TAB PO SCH (07:52)
[2017-04-08] MEDS: LACTOBACILLUS ACIDOPHILUS TAB PO SCH ×3 (07:52→17:27)
[2017-04-08] MEDS: guaiFENesin E.R. 600 MG TAB PO SCH ×2 (07:53→22:52)
[2017-04-08] MEDS: SODIUM CHLORIDE 0.9% FLUSH 10 ML FLUSH IV FLUSH SCH ×2 (07:54→21:00)
--- NOTE | 2017-04-08 12:33 | PD.POD ---
Subjective Podiatric Problems Patient is s/p right heel wound debridement and bone biopsy, 04/05. Pt denies any concerns or pain at this time. He denies any n/v/f/h/c/sob. Pain score: 0 Past Med/Surg/Social History Social History Smoking Status: Unknown If Ever Smoked Objective Vital Signs Vital Signs Date Time Temp Pulse Resp B/P (MAP) Pulse Ox O2 Delivery O2 Flow Rate FiO2 04/08/17 12:18 97.7 73 22 127/75 (92) 93 04/08/17 09:59 93 Nasal Cannula 2.00 04/08/17 08:41 97.8 82 22 151/82 (105) 93 04/08/17 08:34 75 04/08/17 07:35 Nasal Cannula 2.00 04/08/17 04:00 73 04/08/17 04:00 98.4 83 18 132/84 (100) 98 04/08/17 00:00 98.6 81 20 139/89 (106) 99 04/08/17 00:00 77 04/07/17 21:34 97 Nasal Cannula 2.00 04/07/17 20:18 97 Nasal Cannula 2.00 04/07/17 20:00 93 04/07/17 20:00 98.0 81 18 134/73 (93) 97 Coded Allergies: No Known Allergies (Verified Allergy, Unknown, 03/28/17) Physical Exam Remarks Bandages left intact due to recent change. CFT < 3 secs. ROM of digits is WNL. Protective sensation is severely diminished. Calf is supple and nontender to compression. Assessment & Plan A/P 1) right heel ulcer with questionable OM -Cont daily wound care as described by WOC mounika patel -Bone bx is pending, if positive will defer to ID for iv abx recs -pt is very high risk for bka, even with surgical and antibiotic intervention -limit WBing to heel, favor the forefoot -ok for d/c pending abx determination -f/u with 5 days after d/c Delilah Hilton DPM Apr 08, 2017 12:33
[2017-04-08] MEDS: MIRTAZAPINE 15 MG TAB PO SCH (15:51)
--- NOTE | 2017-04-08 18:06 | HHI.PR ---
Subjective Remarks Patient stable today will continue following culture final is negative so per ID recommendation we can DC antibiotic and discharge patient Objective Vitals Vital Signs Date Time Temp Pulse Resp B/P (MAP) Pulse Ox O2 Delivery O2 Flow Rate FiO2 04/08/17 16:13 98.0 78 22 184/89 (120) 93 04/08/17 12:18 97.7 73 22 127/75 (92) 93 04/08/17 12:05 80 04/08/17 09:59 93 Nasal Cannula 2.00 04/08/17 08:41 97.8 82 22 151/82 (105) 93 04/08/17 08:34 75 04/08/17 07:35 Nasal Cannula 2.00 04/08/17 04:00 73 04/08/17 04:00 98.4 83 18 132/84 (100) 98 04/08/17 00:00 98.6 81 20 139/89 (106) 99 04/08/17 00:00 77 04/07/17 21:34 97 Nasal Cannula 2.00 04/07/17 20:18 97 Nasal Cannula 2.00 04/07/17 20:00 93 04/07/17 20:00 98.0 81 18 134/73 (93) 97 I/O 04/07/17 04/07/17 04/07/17 04/08/17 04/08/17 04/08/17 07:00 15:00 23:00 07:00 15:00 23:00 Intake Total 290 ml 955 ml Output Total 750 ml Balance -750 ml 290 ml 955 ml Intake Oral 240 ml IV Total 50 ml 955 ml Output Urine Total 750 ml # Voids 1 4 # Bowel Movements 2 Result Diagram: 04/06/17 0708 Objective Remarks GENERAL: This is a well-nourished, well-developed patient, in no apparent distress. SKIN: No rashes, warm and dry HEAD: Atraumatic. Normocephalic. EYES: Pupils equal round and reactive. Extraocular motions intact. No scleral icterus. ENT: Nose without bleeding, or drainage, Airway patent. NECK: Trachea midline. Supple CARDIOVASCULAR: Regular rate and rhythm without murmurs, gallops, or rubs. RESPIRATORY: Fair air entry bilaterally. No wheezes, rales, or rhonchi. GASTROINTESTINAL: Abdomen soft, non-tender, nondistended. Positive bowel sounds MUSCULOSKELETAL: Extremities without clubbing, cyanosis, or edema. Pedal pulses appreciated, bilateral heels in gauze NEUROLOGICAL: Awake and alert. Moves all extremity. Normal speech.no focal neurological deficit A/P Problem List: (1) Heel ulcer ICD Code: L97.409 - Non-pressure chronic ulcer of unspecified heel and midfoot with unspecified severity Status: Acute (2) Type 2 diabetes mellitus ICD Code: E11.9 - Type 2 diabetes mellitus without complications Status: Chronic (3) Dementia ICD Code: F03.90 - Unspecified dementia without behavioral disturbance Status: Chronic Assessment and Plan 2: Continue iv antibiotic waking biopsy report and culture to guide antibiotic coverage, monitor for any fever, monitor blood sugar, monitor BMP and urine output, creatinine improved to 1.26 today 2: Stable no acute issues overnight, continue antibiotic, awaiting result of the culture and biopsy 2: Final culture is negative as well as bone biopsy, so per ID recommendation , antibiotic and discharge patient to rehabilitation Mr. Chavez is a 67 y/o male with a history of dementia, CHF, hypertension, and type 2 diabetes mellitus who was sent by his weaver wire loom Dr. Paz for evaluation of a chronic right heel ulcer. Nonhealing wound right heel- with some superficial skin necrosis with suspected osteomyelitis on MRI - Podiatry ff-: 4 debridement with bone biopsy and possible VAC placement - Antibiotics: Zosyn + Vancomycin - appreciate ID ff along with us Type 2 Diabetes Mellitus- good readings - Hold Metformin with elevated creatinine - Accuchecks ac and hs with low dose Novolog SS coverage - hypoglycemia treatment protocol - monitor trends in blood glucose and adjust treatment as indicated Dementia- pleasant and cooperative, oriented to person and place - resume home Aricept AK I versus CKD likely with underlying DM nephropathy - ff BMP on antibiotics - non oliguric -I will hold lisinopril, and clonidine as needed DVT prophylaxis - heparin 5000 units subq q8h- will hold for surgery in am PT/OT consult Out of bed to chair -tid for all meals Discharge Planning To SNF today Problem Qualifiers (1) Type 2 diabetes mellitus: Clary El MD Apr 08, 2017 18:06
--- NOTE | 2017-04-08 18:52 | HHI.DS ---
Discharge Summary Admission Date Mar 28, 2017 at 15:44 Discharge Date: Apr 08, 2017 Admitting Diagnosis worsening heel ulcer/sepsis (1) Heel ulcer ICD Code: L97.409 - Non-pressure chronic ulcer of unspecified heel and midfoot with unspecified severity Status: Acute (2) Type 2 diabetes mellitus ICD Code: E11.9 - Type 2 diabetes mellitus without complications Status: Chronic (3) Dementia ICD Code: F03.90 - Unspecified dementia without behavioral disturbance Status: Chronic Procedures See below Brief History - From Admission Mr. Chavez is a 67 y/o male with a history of dementia, CHF, hypertension, and type 2 diabetes mellitus who was sent by his marine water tender Dr. Paz for evaluation of a chronic right heel ulcer. The patient is seen in the ED. He tells me it is 1950. He is not sure of who his PCP is and cannot tell me where he is. He is oriented to self only. He denies all of the medical conditions on his medical record. He is a patient at [facility] in [place]. He also tells me there is nothing wrong with his foot or heel. He is incontinent of urine. CBC/BMP: 04/06/17 0708 Significant Findings Laboratory Tests Test 04/06/17 07:08 Carbon Dioxide Level 33.4 MEQ/L (21.0-32.0) Estimat Glomerular Filtration Rate 57 ML/MIN (>89) PE at Discharge GENERAL: This is a well-nourished, well-developed patient, in no apparent distress. SKIN: No rashes, warm and dry HEAD: Atraumatic. Normocephalic. EYES: Pupils equal round and reactive. Extraocular motions intact. No scleral icterus. ENT: Nose without bleeding, or drainage, Airway patent. NECK: Trachea midline. Supple CARDIOVASCULAR: Regular rate and rhythm without murmurs, gallops, or rubs. RESPIRATORY: Fair air entry bilaterally. No wheezes, rales, or rhonchi. GASTROINTESTINAL: Abdomen soft, non-tender, nondistended. Positive bowel sounds MUSCULOSKELETAL: Extremities without clubbing, cyanosis, or edema. Pedal pulses appreciated, bilateral heels in gauze NEUROLOGICAL: Awake and alert. Moves all extremity. Normal speech.no focal neurological deficit Hospital Course Mr. Chavez is a 67 y/o male with a history of dementia, CHF, hypertension, and type 2 diabetes mellitus who was sent by his marine water tender Dr. Paz for evaluation of a chronic right heel ulcer. Nonhealing wound right heel with some superficial skin necrosis with suspected osteomyelitis on MRI Podiatry consulted status post debridement with bone biopsy and possible VAC placement ID consulted Antibiotics: Zosyn + Vancomycin Type 2 Diabetes Mellitus good readings Hold Metformin with elevated creatinine Accuchecks ac and hs with low dose Novolog SS coverage hypoglycemia treatment protocol monitor trends in blood glucose and adjust treatment as indicated Dementia pleasant and cooperative, oriented to person and place resume home Aricept AK I versus CKD likely with underlying DM nephropathy We held hold lisinopril, and clonidine as needed [id number] encounter performed with the patient on discharge day, as well as physical exam, summary of hospitalization course and postdischarge plan has been D/W the patient. D/W nurse D/W case aide. Discharge medications reviewed and printed and signed, post discharge follow up visit with PCP and other specialist as well as Brief hospital course and discharge summary has been placed. Pt Condition on Discharge: Stable Discharge Disposition: Discharge to SNF Discharge Time: > 30 minutes Discharge Instructions DIET: Follow Instructions for: Heart Healthy Diet, Diabetic Diet Activities you can perform: See Additionl Instruction Other Activity Instructions: Per PT recommendation Follow up Referrals: Podiatry - 1 Week @ [facility] with Pati Rodriguez DPM Continued Medications: Albuterol 8.5 GM Inh (Proair Hfa 8.5 GM Inh) 90 Mcg/Act Aer 2 PUFF INH Q4HR PRN for SHORTNESS OF BREATH, #1 INHALER 0 Refills 108 mcg/actuation Aspirin (Aspirin) 81 Mg Chew 81 MG CHEW DAILY, TAB 0 Refills Donepezil (Donepezil) 5 Mg Tab 5 MG PO DAILY for Dementia, #30 TAB 0 Refills Gabapentin (Gabapentin) 100 Mg Cap 200 MG PO BID, #60 CAP 0 Refills Lisinopril (Lisinopril) 10 Mg Tab 10 MG PO DAILY, #30 TAB 0 Refills Metformin (Metformin) 1,000 Mg Tab 1000 MG PO BIDPC for Blood Sugar Management, #0 TAB 0 Refills With meals Mirtazapine (Mirtazapine) 15 Mg Tab 15 MG PO DAILY@1600 for Depression Control, #30 TAB 0 Refills Multiple Vitamins W/ Iron (Daily-Frank/Iron/Beta-Wilson) 1 Tab Tab 1 TAB PO DAILY Nystatin Topical (Nystop Topical) 100,000 Unit/Gm Powd 1 APPLIC TOPICAL Q4HR PRN for RASH, TUBE 0 Refills Saccharomyces Boulardii (Probiotic) 250 Mg Cap 250 MG PO TID for Nutritional Supplement, CAP 0 Refills Simvastatin (Simvastatin) 20 Mg Tab 20 MG PO DAILY for Cholesterol Management, #0 TAB 0 Refills Zinc Sulfate (Zinc Sulfate) 220 Mg Tab 220 MG PO DAILY for Nutritional Supplement, TAB 0 Refills Clary El MD Apr 08, 2017 18:52
[2017-04-09] VITALS (11 sets, daily range): BP systolic 110–173; BP diastolic 62–83; PULSE 68–85; RESP 18–20; TEMP 97.2–98.1; O2SAT 93–97
[2017-04-09] MEDS: SODIUM CHLOR 0.9% 1000 ML INJ 1,000 ML IV SCH ×2 (02:33→13:37)
[2017-04-09] MEDS: PIPERACIL-TAZO 3.375 GM PREMIX 50 ML IV SCH ×2 (05:36)
[2017-04-09] MEDS: INSULIN ASPART SUPPLEMENTAL SCALE SQ SCH ×3 (08:00→16:41)
[2017-04-09] MEDS: GABAPENTIN 100 MG CAP PO SCH (08:54)
[2017-04-09] MEDS: LACTOBACILLUS ACIDOPHILUS TAB PO SCH ×3 (08:54→17:15)
[2017-04-09] MEDS: SODIUM CHLORIDE 0.9% FLUSH 10 ML FLUSH IV FLUSH SCH (08:55)
[2017-04-09] MEDS: DONEPEZIL HCL 5 MG TAB PO SCH (08:55)
[2017-04-09] MEDS: guaiFENesin E.R. 600 MG TAB PO SCH (08:55)
[2017-04-09] MEDS: PRAVASTATIN SOD 40 MG TAB PO SCH (08:55)
[2017-04-09] MEDS: COLLAGENASE OINT 30 GM TUBE TOPICAL SCH (08:55)
--- NOTE | 2017-04-09 12:04 | HHI.PR ---
Subjective Remarks no acute issue, awaiting transfer to [facility] Objective Vitals Vital Signs Date Time Temp Pulse Resp B/P (MAP) Pulse Ox O2 Delivery O2 Flow Rate FiO2 04/09/17 10:20 97 Nasal Cannula 2.00 04/09/17 10:00 69 04/09/17 08:20 97.4 68 18 150/78 (102) 94 04/09/17 07:55 Nasal Cannula 2.00 04/09/17 04:43 98.1 74 18 158/69 (98) 93 04/09/17 04:30 84 04/09/17 00:30 74 04/09/17 00:27 97.4 75 18 137/62 (87) 95 04/08/17 23:30 Nasal Cannula 2.00 04/08/17 20:30 87 04/08/17 20:27 98.6 87 18 151/77 (101) 95 04/08/17 17:35 156/82 (106) 04/08/17 16:13 98.0 78 22 184/89 (120) 93 04/08/17 15:57 73 04/08/17 12:18 97.7 73 22 127/75 (92) 93 04/08/17 12:05 80 I/O 04/08/17 04/08/17 04/08/17 04/09/17 04/09/17 04/09/17 07:00 15:00 23:00 07:00 15:00 23:00 Intake Total 290 ml 1005 ml Output Total 750 ml Balance -750 ml 290 ml 1005 ml Intake Oral 240 ml IV Total 50 ml 1005 ml Output Urine Total 750 ml # Voids 4 1 # Bowel Movements 2 1 Result Diagram: 04/06/17 0708 Objective Remarks GENERAL: This is a well-nourished, well-developed patient, in no apparent distress. SKIN: No rashes, warm and dry HEAD: Atraumatic. Normocephalic. EYES: Pupils equal round and reactive. Extraocular motions intact. No scleral icterus. ENT: Nose without bleeding, or drainage, Airway patent. NECK: Trachea midline. Supple CARDIOVASCULAR: Regular rate and rhythm without murmurs, gallops, or rubs. RESPIRATORY: Fair air entry bilaterally. No wheezes, rales, or rhonchi. GASTROINTESTINAL: Abdomen soft, non-tender, nondistended. Positive bowel sounds MUSCULOSKELETAL: Extremities without clubbing, cyanosis, or edema. Pedal pulses appreciated, bilateral heels in gauze NEUROLOGICAL: Awake and alert. Moves all extremity. Normal speech.no focal neurological deficit Procedures See below A/P Problem List: (1) Heel ulcer ICD Code: L97.409 - Non-pressure chronic ulcer of unspecified heel and midfoot with unspecified severity Status: Acute (2) Type 2 diabetes mellitus ICD Code: E11.9 - Type 2 diabetes mellitus without complications Status: Chronic (3) Dementia ICD Code: F03.90 - Unspecified dementia without behavioral disturbance Status: Chronic Assessment and Plan 04/06: Continue iv antibiotic waking biopsy report and culture to guide antibiotic coverage, monitor for any fever, monitor blood sugar, monitor BMP and urine output, creatinine improved to 1.26 today 04/07: Stable no acute issues overnight, continue antibiotic, awaiting result of the culture and biopsy 04/08: Final culture is negative as well as bone biopsy, so per ID recommendation , antibiotic and discharge patient to rehabilitation 04/09: No acute issue awaiting transfer to SNF today patient stable and doing well Mr. Chavez is a 67 y/o male with a history of dementia, CHF, hypertension, and type 2 diabetes mellitus who was sent by his water analyst Dr. Paz for evaluation of a chronic right heel ulcer. Nonhealing wound right heel- with some superficial skin necrosis with suspected osteomyelitis on MRI - Podiatry ff-: 4 debridement with bone biopsy and possible VAC placement - Antibiotics: Zosyn + Vancomycin - appreciate ID ff along with us Type 2 Diabetes Mellitus- good readings - Hold Metformin with elevated creatinine - Accuchecks ac and hs with low dose Novolog SS coverage - hypoglycemia treatment protocol - monitor trends in blood glucose and adjust treatment as indicated Dementia- pleasant and cooperative, oriented to person and place - resume home Aricept AK I versus CKD likely with underlying DM nephropathy - ff BMP on antibiotics - non oliguric -I will hold lisinopril, and clonidine as needed DVT prophylaxis - heparin 5000 units subq q8h- will hold for surgery in am PT/OT consult Out of bed to chair -tid for all meals Discharge Planning To SNF today Problem Qualifiers (1) Type 2 diabetes mellitus: Clary El MD Apr 09, 2017 12:04
[2017-04-09] MEDS: MIRTAZAPINE 15 MG TAB PO SCH (14:45)
== END 2017-04-09 18:10 | DRG 623 ==
LOC: NEPC 12:35 → NEDA 15:44 → NEDH 21:36 → N05B 03-29 12:49
PROVIDERS: ADMIT Hospitalist; ATTEND Hospitalist
PROC: 0JBQ0ZZ Excision of Right Foot Subcutaneous Tissue and Fascia, Open Approach (ICD-10-PCS; 2017-04-05)
PROC: 2W1SX6Z Compression of Right Foot using Pressure Dressing (ICD-10-PCS; 2017-04-05)
PROC: 0QBL0ZX Excision of Right Tarsal, Open Approach, Diagnostic (ICD-10-PCS; principal; 2017-04-05 16:44)
DX: E11.621 Type 2 diabetes mellitus with foot ulcer (principal); L97.419 Non-pressure chronic ulcer of right heel and midfoot with unspecified severity; N17.9 Acute kidney failure, unspecified; E11.21 Type 2 diabetes mellitus with diabetic nephropathy; Z79.84 Long term (current) use of oral hypoglycemic drugs; F03.90 Unspecified dementia, unspecified severity, without behavioral disturbance, psychotic disturbance, mood disturbance, and anxiety; I13.0 Hypertensive heart and chronic kidney disease with heart failure and stage 1 through stage 4 chronic kidney disease, or unspecified chronic kidney disease; I50.9 Heart failure, unspecified; N18.9 Chronic kidney disease, unspecified; Z68.41 Body mass index [BMI] 40.0-44.9, adult; E66.9 Obesity, unspecified; Z79.02 Long term (current) use of antithrombotics/antiplatelets; R32 Unspecified urinary incontinence; Z53.09 Procedure and treatment not carried out because of other contraindication
CPT/HCPCS: 70250; 71045; 73630; 73723; 76937; 80048; 80053; 80202; 82565; 82948; 83036; 85007; 85025; 85027; 85610; 85652; 85730; 86140; 87015; 87070; 87102; 87116; 87205; 87206; 88307; 88311; 94664; 96365; 96375; A9579; J0131; J0330; J1644; J1815; J2250; J2543; J3010; J3370; J7030; J7040; J7050